=== PATIENT | male | born 1940 | race Caucasian/White ===

== ENCOUNTER → 2017-12-24 | Outpatient (REF) | payer MEDICAID ==
[2017-12-24 14:03] LABS: BASO # 0.1 10^3/uL (0.0-0.2); BASO % 0.7 % (0.0-1.0); EOS # 0.3 10^3/uL (0.0-0.50); EOS % 3.3 % (0.0-3.0); HEMOGLOBIN 10.9 g/dl (13.5-17.5); IMMATURE GRANULOCYTE % 1.1 % (0-3.0); LYMPH # 1.2 10^3/uL (1.5-4.5); MEAN CORPUSCULAR HEMOGLOBIN 26.5 pg (27.0-33.0); MEAN CORPUSCULAR HGB CONC 31.1 g/dl (32.0-36.5); MONO # 0.9 10^3/uL (0.0-0.8); MONO % 10.6 % (0.0-5.0); NEUTROPHILS # 5.9 10^3/uL (1.8-7.7); NEUTROPHILS % 70.3 % (36.0-66.0); PLATELET COUNT, AUTOMATED 286 10^3/uL (150-450); RED BLOOD COUNT 4.12 10^6/uL (4.30-6.10); RED CELL DISTRIBUTION WIDTH 14.7 % (11.5-14.5); WHITE BLOOD COUNT 8.4 10^3/uL (4.0-10.0)
[2017-12-24 14:26] LABS: ANION GAP 5 MEQ/L (8-16); BLOOD UREA NITROGEN 16 MG/DL (7-18); CALCIUM LEVEL 8.5 MG/DL (8.8-10.2); CARBON DIOXIDE LEVEL 32 MEQ/L (21-32); CHLORIDE LEVEL 94 MEQ/L (98-107); CREATININE FOR GFR 0.76 MG/DL (0.70-1.30); FERRITIN 10 NG/ML (26-388); GLOMERULAR FILTRATION RATE > 60.0 (>42); GLUCOSE, FASTING 72 MG/DL (70-100); IRON (FE) 31 UG/DL (65-175); PERCENT SATURATION 7.1 % (19.7-50.0); POTASSIUM SERUM 5.1 MEQ/L (3.5-5.1); SODIUM LEVEL 131 MEQ/L (136-145); TOTAL IRON BINDING CAPACITY 438 UG/DL (250-450)
== END ==
DX: D64.9 Anemia, unspecified (principal); I10 Essential (primary) hypertension
CPT/HCPCS: 83550

== ENCOUNTER → 2018-01-07 | Outpatient (REF) | payer MEDICARE, MEDICAID ==
[2018-01-07 10:27] LABS: ALBUMIN 3.2 GM/DL (3.2-5.2); ALT/SGPT 12 U/L (12-78); BILIRUBIN,TOTAL 0.4 MG/DL (0.2-1.0); BLOOD UREA NITROGEN 15 MG/DL (7-18); CARBON DIOXIDE LEVEL 33 MEQ/L (21-32); CHLORIDE LEVEL 94 MEQ/L (98-107); CREATININE FOR GFR 0.74 MG/DL (0.70-1.30); GLOMERULAR FILTRATION RATE > 60.0 (>42); GLUCOSE, FASTING 93 MG/DL (70-100); POTASSIUM SERUM 4.6 MEQ/L (3.5-5.1); SODIUM LEVEL 132 MEQ/L (136-145); TOTAL PROTEIN 7.2 GM/DL (6.4-8.2)
== END ==
PROVIDERS: ATTEND Internal Medicine Cardiovascular Disease
DX: R60.9 Edema, unspecified (principal)

== ENCOUNTER → 2018-03-18 | Outpatient (REF) | payer MEDICARE, MEDICAID ==
[~2018-03-18] MED LIST: ASCO500T PO; B-12100T2 PO; B-121TAB3 PO; BENZ2TAB5 PO; DOXY100T PO; FAMO40TA3 PO; FERR325T3 PO; FLUP10TA PO; FOLI400T PO; LEVO100T5 PO; LISI-538 PO; POTA10CA32 PO; PRAV40TA2 PO; SODI1TAB12 PO; TORS10TA3 PO; TORS20TA2 PO
[2018-03-18 10:42] LABS: ALBUMIN 3.1 GM/DL (3.2-5.2); BLOOD UREA NITROGEN 13 MG/DL (7-18); CARBON DIOXIDE LEVEL 29 MEQ/L (21-32); CHLORIDE LEVEL 92 MEQ/L (98-107); CREATININE FOR GFR 0.73 MG/DL (0.70-1.30); GLOMERULAR FILTRATION RATE > 60.0 (>42); GLUCOSE, FASTING 105 MG/DL (70-100); PHOSPHORUS LEVEL 3.8 MG/DL (2.5-4.9); POTASSIUM SERUM 4.1 MEQ/L (3.5-5.1); SODIUM LEVEL 131 MEQ/L (136-145)
== END ==
PROVIDERS: ATTEND Internal Medicine Cardiovascular Disease
DX: I10 Essential (primary) hypertension (principal)

== ENCOUNTER 2018-05-21 10:24 | Inpatient (IN) | payer MEDICARE, MEDICAID ==
[~2018-05-21] VITALS: Ht 175.3 cm; Wt 88.6 kg
[2018-05-21 11:25] LABS: BASO # 0.1 10^3/uL (0.0-0.2); BASO % 0.5 % (0.0-1.0); EOS # 0.3 10^3/uL (0.0-0.50); EOS % 3.3 % (0.0-3.0); HEMATOCRIT 33.2 % (42.0-52.0); HEMOGLOBIN 10.6 g/dl (13.5-17.5); LYMPH % 10.2 % (24.0-44.0); MEAN CORPUSCULAR HEMOGLOBIN 27.1 pg (27.0-33.0); MEAN CORPUSCULAR HGB CONC 31.9 g/dl (32.0-36.5); MEAN CORPUSCULAR VOLUME 84.9 fl (80.0-96.0); MONO # 1.3 10^3/uL (0.0-0.8); MONO % 12.8 % (0.0-5.0); NEUTROPHILS % 71.9 % (36.0-66.0); PLATELET COUNT, AUTOMATED 312 10^3/uL (150-450); RED BLOOD COUNT 3.91 10^6/uL (4.30-6.10); WHITE BLOOD COUNT 9.8 10^3/uL (4.0-10.0)
--- NOTE | 2018-05-21 11:41 | REP ---
PA and lateral chest: There are no comparisons. There is pleural thickening along the left lateral chest wall. There is stranding extending from the pleural thickening and to the left lung. These findings could be acute, chronic or combination. The right lung is clear. Cardiac size is mildly enlarged. The joan, mediastinum, skeletal structures are unremarkable. Impression: Pleural thickening and linear stranding in the left hemithorax as described. Electronically Signed by Joe Siu MD 05/21/2018 11:33 A
[2018-05-21] MEDS ORDERED: BENZ2TAB5 PO (11:44)
[2018-05-21] MEDS ORDERED: POTA10CA32 PO (11:44)
[2018-05-21] MEDS ORDERED: B-12100T2 PO (11:44)
[2018-05-21] MEDS ORDERED: LEVO100T5 PO (11:44)
[2018-05-21] MEDS ORDERED: FAMO40TA3 PO (11:44)
[2018-05-21] MEDS ORDERED: LISI-538 PO (11:44)
[2018-05-21] MEDS ORDERED: TORS10TA3 PO (11:44)
[2018-05-21] MEDS ORDERED: PRAV40TA2 PO (11:44)
[2018-05-21] MEDS ORDERED: FERR325T3 PO (11:44)
[2018-05-21 12:18] LABS: ERYTHROCYTE SEDIMENTATION RATE 80 mm/hr (0-20)
[2018-05-21 12:19] LABS: ALBUMIN 2.8 GM/DL (3.2-5.2); ALT/SGPT 10 U/L (12-78); BILIRUBIN,DIRECT < 0.1 MG/DL (0.0-0.2); BILIRUBIN,TOTAL 0.3 MG/DL (0.2-1.0); BLOOD UREA NITROGEN 12 MG/DL (7-18); C REACTIVE PROTEIN QUANTITATIV 2.77 MG/DL (0.00-0.30); CALCIUM LEVEL 8.4 MG/DL (8.8-10.2); CARBON DIOXIDE LEVEL 31 MEQ/L (21-32); CHLORIDE LEVEL 93 MEQ/L (98-107); CPK CREATINE PHOSPHOKINASE 52 U/L (39-308); CREATININE FOR GFR 0.73 MG/DL (0.70-1.30); GLOMERULAR FILTRATION RATE > 60.0 (>42); GLUCOSE, FASTING 101 MG/DL (70-100); MB/CK RELATIVE INDEX 3.08 (< OR =4); NT-PRO BNP 30 PG/ML (<450); POTASSIUM SERUM 3.9 MEQ/L (3.5-5.1); SODIUM LEVEL 132 MEQ/L (136-145); TOTAL PROTEIN 7.3 GM/DL (6.4-8.2); TROPONIN I < 0.02 NG/ML (< 0.10)
--- NOTE | 2018-05-21 12:38 | REP ---
Bilateral lower extremity Duplex Doppler venous ultrasound: Real time compression and duplex Doppler interrogation of the bilateral lower extremity deep venous system is performed. Bilaterally, the common femoral, superficial femoral and popliteal veins are fully compressible with transducer pressure and demonstrate normal spontaneous and phasic flow, without evidence of deep venous thrombosis. Impression: No evidence of deep venous thrombosis of the bilateral lower extremity femoral popliteal venous system. Note is made of prominent lymph nodes in the right inguinal region, measuring 4.1 x 1.1 x 1.5 cm and 4.2 x 1.0 x 2.3 cm. A left inguinal node measures 5.0 x 1.4 x 3.5 cm. Electronically Signed by Joe Bhatti MD 05/21/2018 12:30 P
[2018-05-21 13:33] LABS: APPEARANCE, URINE CLEAR (CLEAR); BACTERIA, URINE AUTO NEGATIVE (NEGATIVE); BILIRUBIN, URINE AUTO NEGATIVE (NEGATIVE); BLOOD, URINE BLOOD NEGATIVE (NEGATIVE); COLOR, URINE STRAW (YELLOW); GLUCOSE, URINE (UA) AUTO NEGATIVE (NEGATIVE); KETONE, URINE AUTO NEGATIVE (NEGATIVE); LEUKOCYTE ESTERASE, URINE AUTO NEGATIVE (NEGATIVE); NITRITE, URINE AUTO NEGATIVE (NEGATIVE); PROTEIN, URINE AUTO NEGATIVE (NEGATIVE); RBC, URINE AUTO 1 /HPF (0-3); SPECIFIC GRAVITY URINE AUTO 1.005 (1.002-1.035); SQUAMOUS EPITHELIAL CELL UR AU 0 /HPF (0-6); UROBILINOGEN, URINE AUTO 0.2 mg/dL (0.0-2.0); WBC, URINE AUTO 0 /HPF (0-3)
--- NOTE | 2018-05-21 13:43 | ECGEPIP ---
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
[2018-05-21] MEDS ORDERED: CEFTAROLINE FOSAMIL 600 MG in D5W MINI-BAG PLUS 50 ML IV ONE (14:30)
[2018-05-21] MEDS ORDERED: B-121TAB3 PO (14:53)
[2018-05-21] MEDS ORDERED: FLUP10TA PO (14:53)
[2018-05-21] MEDS ORDERED: FOLI400T PO (14:53)
[2018-05-21] MEDS ORDERED: ASCO500T PO (14:53)
[2018-05-21] MEDS ORDERED: TORS20TA2 PO (14:53)
[2018-05-21] MEDS ORDERED: ACETAMINOPHEN 500 MG TAB PO PRN (15:00)
--- NOTE | 2018-05-21 15:20 | HPE ---
DATE OF ADMISSION: 05/21/2018 PRIMARY CARE PROVIDER: Darlin Mcneill in [place]. ATTENDING PHYSICIAN: The hospitalist group. GEOPHYSICAL LABORATORY SUPERVISOR: Dr. Frias CHIEF COMPLAINT: Bilateral lower extremity cellulitis. HISTORY: David Jade was sent over by [facility] with bilateral lower extremity cellulitis. He does not give much history due to psychiatric illness but, apparently, he has been wearing compression stockings. When someone took them off, they noticed erythema of the lower extremities. He apparently has been felt to be running a fever at times. He has a past medical history significant for hypothyroidism, hyperlipidemia, schizophrenia, hypertensive heart disease. He has an unspecified cardiac murmur that sounds like aortic stenosis and mitral regurgitation clinically. REVIEW OF SYSTEMS: Denies chest pain, shortness of breath, rectal bleeding, urinary bleeding, palpitations. SOCIAL HISTORY: He is . He is a resident of [facility]. ALLERGIES: None known. MEDICATIONS: Have not yet been reconciled. Addendum will be dictated. PHYSICAL EXAM: VITAL SIGNS: Per flow sheet. He is lying in bed. He vague answering questions. He has a tremor. HEENT: Shows poor dentition. LUNGS: Decreased breath sounds, but clear. HEART: Regular rate and rhythm with a 2/6 systolic ejection murmur right upper sternal border, 2/6 holosystolic murmur at the apex. ABDOMEN: Soft. Nontender. No masses. He has venous stasis dermatitis. With erythema of the lower extremities from ankles to mid king that is warm and reddened. Per spouse, is a new finding for him. He moves all extremities equally. LABS: White count 9.8, hemoglobin 10.6 (baseline hemoglobin 10.8), platelets 312. Sodium 132 (baseline sodium around 131), potassium 3.9, BUN 12, creatinine 0.7, glucose 101, CRP 2.7. Ultrasounds of the legs show no deep venous thromboses (DVTs). Chest x-ray showed no active disease. IMPRESSION: Cellulitis lower extremities. PLAN: 1. Being admitted to medical bed on the hospitalist service. Started on ceftaroline 600 mg every 12 hours. Repeat C-reactive protein in a few days. He does not look particularly ill and probably could go home in a few days with this. 2. Schizophrenia. Continue his current regimen. 3. Hyperlipidemia. Continue his pravastatin 40 mg daily 4. Hypertensive heart disease. Lisinopril 20 mg daily and torsemide 10 mg daily. Will supplement potassium. 5. Hypothyroidism. Continue current dose of levothyroxine. Check some thyroid functions. 6. B12 deficiency. Continue his B12 supplement.
[2018-05-21] MEDS: PRAVASTATIN 20 MG TAB PO SCH (21:08)
[2018-05-21] MEDS: LISINOPRIL 20 MG TAB PO SCH (21:11)
[2018-05-21] MEDS: BENZTROPINE 2 MG TAB PO SCH (21:11)
[2018-05-21] MEDS: TORSEMIDE 10 MG TABLET PO SCH (21:11)
[2018-05-21 22:00] VITALS: BP 135/67
[2018-05-22 02:00] VITALS: BP 125/80
[2018-05-22] MEDS ORDERED: CEFTAROLINE FOSAMIL 600 MG in D5W MINI-BAG PLUS 50 ML IV SCH (02:00)
[2018-05-22] MEDS: CEFTAROLINE FOSAMIL 600 MG in D5W MINI-BAG PLUS 50 ML IV SCH ×2 (02:23→13:23)
[2018-05-22] MEDS: LEVOTHYROXINE 100MCG TABLET (0.1MG) PO SCH (05:41)
[2018-05-22 06:00] VITALS: BP 149/77
[2018-05-22 06:22] LABS: HEMATOCRIT 31.8 % (42.0-52.0); HEMOGLOBIN 10.6 g/dl (13.5-17.5); MEAN CORPUSCULAR HEMOGLOBIN 27.2 pg (27.0-33.0); MEAN CORPUSCULAR HGB CONC 33.3 g/dl (32.0-36.5); MEAN CORPUSCULAR VOLUME 81.5 fl (80.0-96.0); PLATELET COUNT, AUTOMATED 359 10^3/uL (150-450); WHITE BLOOD COUNT 14.1 10^3/uL (4.0-10.0)
[2018-05-22 06:46] LABS: BLOOD UREA NITROGEN 11 MG/DL (7-18); CALCIUM LEVEL 8.3 MG/DL (8.8-10.2); CARBON DIOXIDE LEVEL 29 MEQ/L (21-32); CHLORIDE LEVEL 86 MEQ/L (98-107); CREATININE FOR GFR 0.76 MG/DL (0.70-1.30); GLOMERULAR FILTRATION RATE > 60.0 (>42); GLUCOSE, FASTING 98 MG/DL (70-100); POTASSIUM SERUM 4.1 MEQ/L (3.5-5.1); SODIUM LEVEL 124 MEQ/L (136-145)
[2018-05-22] MEDS: FOLIC ACID 1 MG TAB PO SCH (08:36)
[2018-05-22] MEDS: CYANOCOBALAMIN 500 MCG TAB PO SCH (08:36)
[2018-05-22] MEDS: FAMOTIDINE 20 MG TAB PO SCH (08:36)
[2018-05-22] MEDS: BENZTROPINE 2 MG TAB PO SCH ×3 (08:36→20:40)
[2018-05-22] MEDS: POTASSIUM CHLORIDE 10 MEQ SR TABLET PO SCH (08:37)
[2018-05-22] MEDS: FERROUS SULFATE 325MG TAB PO SCH (08:37)
[2018-05-22] MEDS: ASCORBIC ACID 500 MG TAB PO SCH (08:37)
[2018-05-22] MEDS: TORSEMIDE 20 MG TAB PO SCH ×2 (08:37→08:40)
[2018-05-22] MEDS: ENOXAPARIN 40 MG/0.4 ML SYRINGE (J1650) SC SCH (08:41)
[2018-05-22 14:00] VITALS: BP 140/68
[2018-05-22] MEDS: NS 1,000 ML IV SCH (16:30)
--- NOTE | 2018-05-22 16:51 | IPNPDOC ---
Subjective Date Seen The patient was seen on 05/22/18. Subjective Chief Complaint/HPI Subjective: Patient sent from [facility] for bilateral lower extremity cellulitis. Also found to have resting hyponatremia. Patient appeared comfortable this morning. He denies any complaints. Sodium noted to drop from 132 to 124, no noticeable changes in mental status noted by nursing staff overnight and this morning. Objective Physical Examination Other physical findings General: weak, frail. Eyes: Normal sclera, EOMI, JON HENT: Atraumatic, neck supple, moist mucous membranes Cardiovascular: Normal rate. murmurs+. Pulmonary: Clear to auscultation b/l, no wheezing GI: Soft, nontender, nondistended Skin: Warm and dry Neuro: CN grossly intact. No focal deficits. generalized weakness. Assessment /Plan Assessment ASSESSMENT AND PLAN: 1. LE Cellulitis - c/w Abx. No significant erythema noted. 2. Schizophrenia - Holding antipsychotic for today given worsening hyponatremia. - Resume tomorrow if Na normalizes. 3. HLD - C/w home pravastatin 4. Hyponatremia - Patient on antipsychotic as well as likely hypovolemic 2/2 poor PO intake. - Na 124 asymptomatic. Will fluid restrict and give NaCl IVF support. - f/u serum and urine osmo, Na, Cl. - repeat BMP now to assess for trend. 5. Hypothyroidism - c/w home dose synthroid. Patient is high risk due to moderate hyponatremia and low extremity cellulitis Estimated length of stay 4 days. Plan/VTE VTE Prophylaxis Ordered?: Yes VS, I&O, 24H, Fishbone Vital Signs/I&O Vital Signs Date Time Temp Pulse Resp B/P (MAP) Pulse Ox O2 Delivery O2 Flow Rate FiO2 05/22/18 06:00 97.2 97 20 149/77 (101) 92 05/21/18 18:42 Room Air I&O- Last 24 Hours up to 6 AM 05/22/18 06:00 Intake Total 1320 ml Balance 1320 ml Laboratory Data 24H LABS Laboratory Tests 2 05/22/18 05:43: Nucleated Red Blood Cells % (auto) 0.0, Anion Gap 9, Glomerular Filtration Rate > 60.0, Blood Urea Nitrogen 11, Creatinine 0.76, Sodium Level 124#L, Potassium Level 4.1, Chloride Level 86L, Carbon Dioxide Level 29, Calcium Level 8.3L CBC/BMP Laboratory Tests 4/11/19 05:43 Red Blood Count 3.90 L, Mean Corpuscular Volume 81.5, Mean Corpuscular Hemoglobin 27.2, Mean Corpuscular Hemoglobin Concent 33.3, Red Cell Distribution Width 13.4, Calcium Level 8.3 L Microbiology Microbiology 05/21/18 Blood Culture - Preliminary, Resulted No growth after 24 hours . All specim... 05/21/18 Blood Culture - Preliminary, Resulted No growth after 24 hours . All specim... 05/21/18 Urine Culture - Final, Complete AMANDA LANGLEY MD May 22, 2018 16:51
[2018-05-22] MEDS: TORSEMIDE 10 MG TABLET PO SCH (17:00)
[2018-05-22 17:30] LABS: BLOOD UREA NITROGEN 11 MG/DL (7-18); CARBON DIOXIDE LEVEL 31 MEQ/L (21-32); CHLORIDE LEVEL 87 MEQ/L (98-107); CREATININE FOR GFR 0.68 MG/DL (0.70-1.30); GLOMERULAR FILTRATION RATE > 60.0 (>42); GLUCOSE, FASTING 121 MG/DL (70-100); POTASSIUM SERUM 4.3 MEQ/L (3.5-5.1); SODIUM LEVEL 123 MEQ/L (136-145)
[2018-05-22 17:35] LABS: OSMOLALITY SERUM 260 MOSM/KG (280-301)
[2018-05-22] MEDS: LISINOPRIL 20 MG TAB PO SCH (20:55)
[2018-05-22] MEDS: PRAVASTATIN 20 MG TAB PO SCH (20:55)
[2018-05-22 22:00] VITALS: BP 136/93
[2018-05-23 02:00] VITALS: BP 133/75
[2018-05-23] MEDS: CEFTAROLINE FOSAMIL 600 MG in D5W MINI-BAG PLUS 50 ML IV SCH ×2 (03:04→14:42)
[2018-05-23] MEDS: NS 1,000 ML IV SCH ×2 (03:04→12:08)
[2018-05-23 06:00] VITALS: BP 147/68
[2018-05-23] MEDS: LEVOTHYROXINE 100MCG TABLET (0.1MG) PO SCH (06:04)
[2018-05-23 06:24] LABS: HEMATOCRIT 31.1 % (42.0-52.0); HEMOGLOBIN 10.3 g/dl (13.5-17.5); MEAN CORPUSCULAR HGB CONC 33.1 g/dl (32.0-36.5); MEAN CORPUSCULAR VOLUME 81.4 fl (80.0-96.0); PLATELET COUNT, AUTOMATED 306 10^3/uL (150-450); RED BLOOD COUNT 3.82 10^6/uL (4.30-6.10); WHITE BLOOD COUNT 8.2 10^3/uL (4.0-10.0)
[2018-05-23 06:45] LABS: BLOOD UREA NITROGEN 11 MG/DL (7-18); CALCIUM LEVEL 8.4 MG/DL (8.8-10.2); CARBON DIOXIDE LEVEL 30 MEQ/L (21-32); CHLORIDE LEVEL 94 MEQ/L (98-107); CREATININE FOR GFR 0.62 MG/DL (0.70-1.30); GLOMERULAR FILTRATION RATE > 60.0 (>42); GLUCOSE, FASTING 107 MG/DL (70-100); POTASSIUM SERUM 4.1 MEQ/L (3.5-5.1); SODIUM LEVEL 129 MEQ/L (136-145)
[2018-05-23 08:00] VITALS: BP 138/56
[2018-05-23] MEDS: EUCERIN 120GM CREAM TOP SCH ×2 (09:00→21:32)
[2018-05-23] MEDS: ENOXAPARIN 40 MG/0.4 ML SYRINGE (J1650) SC SCH (09:00)
[2018-05-23] MEDS: BENZTROPINE 2 MG TAB PO SCH ×2 (10:07→21:31)
[2018-05-23] MEDS: ASCORBIC ACID 500 MG TAB PO SCH (10:08)
[2018-05-23] MEDS: POTASSIUM CHLORIDE 10 MEQ SR TABLET PO SCH (10:08)
[2018-05-23] MEDS: FOLIC ACID 1 MG TAB PO SCH (10:08)
[2018-05-23] MEDS: FAMOTIDINE 20 MG TAB PO SCH (10:08)
[2018-05-23] MEDS: CYANOCOBALAMIN 500 MCG TAB PO SCH (10:08)
[2018-05-23] MEDS: FERROUS SULFATE 325MG TAB PO SCH (10:09)
[2018-05-23 12:01] VITALS: BP 131/64
--- NOTE | 2018-05-23 15:48 | IPNPDOC ---
Date Seen The patient was seen on 05/23/18. Progress Note SUBJECTIVE: Patient reports to me today that his feet are feeling better he tells me he has no pain and no symptoms whatsoever today that he is feeling close to his normal he denies chest pressure fevers chills nausea vomiting diarrhea OBJECTIVE PHYSICAL EXAMINATION: VITAL SIGNS: Please see below. GENERAL: Disheveled elderly man lying in bed he does not appear to be in any acute distress HEENT: Poor dentition moist mucous membranes elevation and CVP CARDIOVASCULAR: S1-S2 regular. He is not tachycardic at the time of my exam. As 6 systolic ejection murmur RESPIRATORY: Clear to auscultation bilaterally. ABDOMINAL: Bowel sounds are present abdomen soft and nontender EXTREMITIES: Significant skin flaking poor nail care superficial ulcer to the dorsum of the foot with foam dressing applied poor hygiene 1+ edema bilaterally LABORATORY DATA, IMAGING STUDIES, MICROBIOLOGY: Please see below. DVT prophylaxis ordered?: Lovenox ASSESSMENT AND PLAN: This is a 78-year-old man with bilateral lower extremity edema. PROBLEMS: 1. Bilateral lower extremity edema: No previous echocardiogram is on chronic diuretic therapy I will check an echo. My suspicion for bilateral lower extrem ity cellulitis is simultaneously be occurring in both legs in his lower, today is day 2 of ceftaroline suspect that tomorrow he can be transitioned to by mouth doxycycline to complete a short course for cellulitis. He is currently receiving normal saline at 100 mL an hour peripherally there appears to be some volume retention however respiratory amin is clear with no elevation and CVP for now we'll simply continue to monitor as his sodium is improving. I suspected benefit from outpatient podiatry follow-up he normally resides in assisted living [facility]. He is on diuretic is currently on hold. 2. Schizophrenia: I will resume his Cogentin as well as fluphenazine. Patient appears to be at his baseline cognitive status 3. Hyponatremia: Is unclear to me if his hypovolemic versus hypervolemic I do feels been appreciated some edema bilaterally however his sodium does appear to be improving with IV fluids for now we will continue monitor and recheck a BMP this afternoon at this point in time he is received IV fluids he's been fluid restricted he was previously receiving a diuretic is very difficult to ascertain the nature of his hyponatremia he does appear to be improving at this time. 4. Hypothyroidism: Unknown etiology for hyponatremia we'll check a TSH 5. Anemia: An elderly male I will send iron studies and check an occult stool for blood. He has a history of iron deficiency and is on supplementation for this 6. Dyslipidemia: Continue with statin 7. Hypertension: Continue with lisinopril DISPOSITION: Pending echo PT and clinical improvement. VS, I&O, 24H, Fishbone Vital Signs/I&O Vital Signs Date Time Temp Pulse Resp B/P (MAP) Pulse Ox O2 Delivery O2 Flow Rate FiO2 05/23/18 12:01 98.7 101 18 131/64 (86) 96 05/21/18 18:42 Room Air I&O- Last 24 Hours up to 6 AM 05/23/18 05:59 Intake Total 2650 ml Balance 2650 ml Laboratory Data 24H LABS Laboratory Tests 2 05/22/18 16:49: Anion Gap 5L, Glomerular Filtration Rate > 60.0, Osmolality 260L, Blood Urea Nitrogen 11, Creatinine 0.68L, Sodium Level 123L, Potassium Level 4.3, Chloride Level 87L, Carbon Dioxide Level 31, Calcium Level 8.0L 05/23/18 05:34: Anion Gap 5L, Glomerular Filtration Rate > 60.0, Blood Urea Nitrogen 11, Creatinine 0.62L, Sodium Level 129L, Potassium Level 4.1, Chloride Level 94L, Carbon Dioxide Level 30, Calcium Level 8.4L, Nucleated Red Blood Cells % (auto) 0.0 CBC/BMP Laboratory Tests 05/22/18 16:49 Calcium Level 8.0 L 05/23/18 05:34 Calcium Level 8.4 L, Red Blood Count 3.82 L, Mean Corpuscular Volume 81.4, Mean Corpuscular Hemoglobin 27.0, Mean Corpuscular Hemoglobin Concent 33.1, Red Cell Distribution Width 13.4 Microbiology Microbiology 05/21/18 Blood Culture - Preliminary, Resulted No Growth after 48 hours. All Specime... 05/21/18 Blood Culture - Preliminary, Resulted No Growth after 48 hours. All Specime... 05/21/18 Urine Culture - Final, Complete DON HARE MD May 23, 2018 15:48
[2018-05-23] MEDS: TORSEMIDE 10 MG TABLET PO SCH (15:56)
[2018-05-23 17:00] LABS: BLOOD UREA NITROGEN 12 MG/DL (7-18); CALCIUM LEVEL 7.7 MG/DL (8.8-10.2); CARBON DIOXIDE LEVEL 28 MEQ/L (21-32); CHLORIDE LEVEL 98 MEQ/L (98-107); CREATININE FOR GFR 0.58 MG/DL (0.70-1.30); GLOMERULAR FILTRATION RATE > 60.0 (>42); GLUCOSE, FASTING 98 MG/DL (70-100); POTASSIUM SERUM 4.6 MEQ/L (3.5-5.1); SODIUM LEVEL 133 MEQ/L (136-145)
[2018-05-23 17:05] LABS: THYROID STIMULATING HORMONE 4.69 uIU/ML (0.358-3.740)
[2018-05-23 19:05] LABS: PERCENT SATURATION 9.1 % (19.7-50.0)
[2018-05-23] MEDS: LISINOPRIL 20 MG TAB PO SCH (21:31)
[2018-05-23] MEDS: PRAVASTATIN 20 MG TAB PO SCH (21:31)
[2018-05-23 22:00] VITALS: BP 144/74
[2018-05-24 02:00] VITALS: BP 115/56
[2018-05-24] MEDS: CEFTAROLINE FOSAMIL 600 MG in D5W MINI-BAG PLUS 50 ML IV SCH ×2 (02:49→13:45)
[2018-05-24 06:00] VITALS: BP 121/83
[2018-05-24] MEDS: LEVOTHYROXINE 100MCG TABLET (0.1MG) PO SCH (06:00)
[2018-05-24 07:20] LABS: HEMOGLOBIN 10.2 g/dl (13.5-17.5); MEAN CORPUSCULAR HGB CONC 32.9 g/dl (32.0-36.5); PLATELET COUNT, AUTOMATED 334 10^3/uL (150-450); RED BLOOD COUNT 3.78 10^6/uL (4.30-6.10); WHITE BLOOD COUNT 10.6 10^3/uL (4.0-10.0)
[2018-05-24 07:39] LABS: BLOOD UREA NITROGEN 7 MG/DL (7-18); C REACTIVE PROTEIN QUANTITATIV 2.91 MG/DL (0.00-0.30); CALCIUM LEVEL 8.2 MG/DL (8.8-10.2); CARBON DIOXIDE LEVEL 28 MEQ/L (21-32); CHLORIDE LEVEL 97 MEQ/L (98-107); GLOMERULAR FILTRATION RATE > 60.0 (>42); GLUCOSE, FASTING 100 MG/DL (70-100); POTASSIUM SERUM 4.1 MEQ/L (3.5-5.1); SODIUM LEVEL 132 MEQ/L (136-145)
[2018-05-24] MEDS: TORSEMIDE 20 MG TAB PO SCH ×2 (09:43→09:45)
[2018-05-24] MEDS: FERROUS SULFATE 325MG TAB PO SCH (09:43)
[2018-05-24] MEDS: POTASSIUM CHLORIDE 10 MEQ SR TABLET PO SCH (09:43)
[2018-05-24] MEDS: ASCORBIC ACID 500 MG TAB PO SCH (09:43)
[2018-05-24] MEDS: CYANOCOBALAMIN 500 MCG TAB PO SCH (09:44)
[2018-05-24] MEDS: BENZTROPINE 2 MG TAB PO SCH ×2 (09:44→21:58)
[2018-05-24] MEDS: ENOXAPARIN 40 MG/0.4 ML SYRINGE (J1650) SC SCH (09:45)
[2018-05-24] MEDS: EUCERIN 120GM CREAM TOP SCH ×2 (09:45→21:59)
[2018-05-24] MEDS: FAMOTIDINE 20 MG TAB PO SCH (09:45)
[2018-05-24 10:00] VITALS: BP 134/63
[2018-05-24] MEDS: FOLIC ACID 1 MG TAB PO SCH (10:08)
[2018-05-24 14:00] VITALS: BP 128/72
--- NOTE | 2018-05-24 14:28 | IPNPDOC ---
Date Seen The patient was seen on 05/24/18. Progress Note SUBJECTIVE: Patient reports to me today that he is feeling better and back to his normal. He tells me he has no pain and no symptoms whatsoever today he denies chest pressure fevers chills nausea vomiting diarrhea OBJECTIVE PHYSICAL EXAMINATION: VITAL SIGNS: Please see below. GENERAL: Disheveled elderly sitting on the edge of his bed he does not appear to be in any acute distress awake alert and conversant with appropriate responses HEENT: Poor dentition moist mucous membranes elevation and CVP disheveled CARDIOVASCULAR: S1-S2 regular. He is not tachycardic at the time of my exam. As 2/6 systolic ejection murmur RESPIRATORY: Clear to auscultation bilaterally. ABDOMINAL: Bowel sounds are present abdomen soft and nontender EXTREMITIES: Significant skin flaking poor nail care superficial ulcer to the dorsum of the foot with foam dressing applied poor hygiene brawny but nonpitting edema LABORATORY DATA, IMAGING STUDIES, MICROBIOLOGY: Please see below. DVT prophylaxis ordered?: Lovenox ASSESSMENT AND PLAN: This is a 78-year-old man with bilateral lower extremity edema and erythema. PROBLEMS: 1. Bilateral lower extremity edema and erythema: No previous echocardiogram patient is on chronic diuretic therapy I will check an echo. My suspicion for bilateral lower extremity cellulitis is simultaneously be occurring in both legs in his lower, today is day 3 of ceftaroline I will de-escalate to by mouth doxycycline to complete a course. I suspected benefit from outpatient podiatry follow-up he normally resides in assisted living [facility]. His diuretic is currently on hold. 2. Schizophrenia: Continue with Cogentin as well as fluphenazine. Patient appears to be at his baseline cognitive status 3. Hyponatremia: Is unclear to me if his hypovolemic versus hypervolemic it did resolve with IV fluids so I suspect it was hypovolemic and I'll simply continue to monitor. 4. Hypothyroidism: Mild elevation in TSH consider outpatient rechecking 5. Anemia: Likely iron deficiency continue outpatient follow up through his PCP no evidence of any active bleeding 6. Dyslipidemia: Continue with statin 7. Hypertension: Continue with lisinopril DISPOSITION: Pending echo PT and clinical improvement, likely back to [facility] assisted living when able. VS, I&O, 24H, Fishbone Vital Signs/I&O Vital Signs Date Time Temp Pulse Resp B/P (MAP) Pulse Ox O2 Delivery O2 Flow Rate FiO2 05/24/18 10:00 98.0 102 18 134/63 (86) 95 05/21/18 18:42 Room Air I&O- Last 24 Hours up to 6 AM 05/24/18 06:00 Intake Total 1980 ml Balance 1980 ml Laboratory Data 24H LABS Laboratory Tests 2 05/23/18 15:54: Anion Gap 7L, Glomerular Filtration Rate > 60.0, Blood Urea Nitrogen 12, Creatinine 0.58L, Sodium Level 133L, Potassium Level 4.6, Chloride Level 98, Carbon Dioxide Level 28, Calcium Level 7.7L 05/23/18 15:56: Reticulocyte # (auto) 66.0, Differential Slide Review Report, Peripheral Blood Smear Path Consult PERIPHERAL SMEAR, Percent Reticulocyte Count 1.8H, Reticulocyte Hemoglobin Equivalent 31.8, Iron Level 25L, Total Iron Binding Capacity 276, Transferrin % Saturation 9.1L, Ferritin 44, Thyroid Stimulating Hormone (TSH) 4.690H 05/24/18 06:13: Anion Gap 7L, Glomerular Filtration Rate > 60.0, Blood Urea Nitrogen 7, Creatinine 0.60L, Sodium Level 132L, Potassium Level 4.1, Chloride Level 97L, Carbon Dioxide Level 28, Calcium Level 8.2L, Nucleated Red Blood Cells % (auto) 0.0, C-Reactive Protein, Quantitative 2.91H CBC/BMP Laboratory Tests 05/23/18 15:54 Calcium Level 7.7 L 05/24/18 06:13 Calcium Level 8.2 L, Red Blood Count 3.78 L, Mean Corpuscular Volume 82.0, Mean Corpuscular Hemoglobin 27.0, Mean Corpuscular Hemoglobin Concent 32.9, Red Cell Distribution Width 13.5 Microbiology Microbiology 05/21/18 Blood Culture - Preliminary, Resulted No Growth after 72 hours. All specime... 05/21/18 Blood Culture - Preliminary, Resulted No Growth after 72 hours. All specime... 05/23/18 Stool Occult Blood (YOHANA) - Final, Complete 05/21/18 Urine Culture - Final, Complete DON AHRE MD May 24, 2018 14:28
[2018-05-24] MEDS: TORSEMIDE 10 MG TABLET PO SCH (18:18)
[2018-05-24] MEDS: PRAVASTATIN 20 MG TAB PO SCH (21:58)
[2018-05-24] MEDS: DOXYCYCLINE HYCLATE 100 MG TAB PO SCH (21:58)
[2018-05-24] MEDS: LISINOPRIL 20 MG TAB PO SCH (21:59)
[2018-05-24 22:00] VITALS: BP 130/62
[2018-05-25 02:00] VITALS: BP 137/64
[2018-05-25 06:00] VITALS: BP 131/68
[2018-05-25] MEDS: LEVOTHYROXINE 100MCG TABLET (0.1MG) PO SCH (06:15)
[2018-05-25 06:26] LABS: HEMATOCRIT 29.7 % (42.0-52.0); HEMOGLOBIN 9.7 g/dl (13.5-17.5); MEAN CORPUSCULAR HEMOGLOBIN 26.7 pg (27.0-33.0); MEAN CORPUSCULAR HGB CONC 32.7 g/dl (32.0-36.5); MEAN CORPUSCULAR VOLUME 81.8 fl (80.0-96.0); PLATELET COUNT, AUTOMATED 281 10^3/uL (150-450); RED BLOOD COUNT 3.63 10^6/uL (4.30-6.10); WHITE BLOOD COUNT 9.3 10^3/uL (4.0-10.0)
[2018-05-25 06:48] LABS: BLOOD UREA NITROGEN 12 MG/DL (7-18); CALCIUM LEVEL 7.5 MG/DL (8.8-10.2); CARBON DIOXIDE LEVEL 29 MEQ/L (21-32); CHLORIDE LEVEL 96 MEQ/L (98-107); CREATININE FOR GFR 0.67 MG/DL (0.70-1.30); GLOMERULAR FILTRATION RATE > 60.0 (>42); GLUCOSE, FASTING 99 MG/DL (70-100); POTASSIUM SERUM 3.8 MEQ/L (3.5-5.1); SODIUM LEVEL 131 MEQ/L (136-145)
--- NOTE | 2018-05-25 07:32 | ECHO ---
DATE OF STUDY: 05/24/2018 REFERRING PHYSICIAN: Dr. Rosetta Hammer INDICATION: Heart failure unspecified. HEIGHT: 175 cm. WEIGHT: 89 kg. 2-D MEASUREMENTS: Aortic annulus: 2.2 cm Aortic root: 3.4 cm Left atrium: 3.4 cm Ventricular septum: 1.00 cm Posterior wall: 0.96 cm Left ventricle diastole: 4.7 cm Inferior vena cava: 1.7 cm DOPPLER MEASUREMENTS: Trace aortic regurgitation Aortic valve velocity: 274 cm/sec Aortic valve VTI: 50.0 cm/sec Peak aortic valve gradient: 30 mmHg Mean aortic valve gradient: 17 mmHg Aortic valve area: 2.1 cm squared (continuity equation, VTI) Dimensionless index: 0.56 LVOT velocity: 145 cm/sec LVOT VTI: 27.9 cm Mitral E velocity: 77.7 cm/sec Mitral A velocity: 92.4 cm/sec Mitral deceleration time: 176 ms Mild tricuspid regurgitation Estimated right ventricular systolic pressure 31-36 mmHg assuming a right atrial pressure of 5-10 mmHg MITRAL ANNULAR TISSUE DOPPLER: E prime septal: 8.81 cm/sec E prime lateral: 6.42 cm/sec DESCRIPTION: The rhythm was mostly sinus tachycardia. This was a moderately technically difficult echocardiogram. No pericardial effusion. This was a 2-D, M-mode, color flow Doppler and pulse wave Doppler examination and included mitral annular tissue Doppler. CONCLUSIONS: 1. Normal left ventricle internal dimensions and wall thickness. Normal regional LV wall motion and wall thickening. Normal LV systolic function. LVEF 70% by visual estimate. Grade 2 LV diastolic dysfunction (impaired relaxation and filling pattern). 2. Severe focal thickening and focal calcific deposits of a 3-cuspid aortic valve. Mild reduction in aortic cusp mobility. Mild aortic stenosis. Trace aortic regurgitation. 3. Normal right ventricle size and systolic function. 4. Mild mitral annular calcification. No mitral regurgitation. 5. Suggestive of mild elevation of estimated right ventricle systolic pressure.
[2018-05-25] MEDS: FOLIC ACID 1 MG TAB PO SCH (08:43)
[2018-05-25] MEDS: TORSEMIDE 20 MG TAB PO SCH (08:43)
[2018-05-25] MEDS: ASCORBIC ACID 500 MG TAB PO SCH (08:43)
[2018-05-25] MEDS: BENZTROPINE 2 MG TAB PO SCH ×2 (08:43→21:08)
[2018-05-25] MEDS: FERROUS SULFATE 325MG TAB PO SCH (08:43)
[2018-05-25] MEDS: ENOXAPARIN 40 MG/0.4 ML SYRINGE (J1650) SC SCH (08:43)
[2018-05-25] MEDS: POTASSIUM CHLORIDE 10 MEQ SR TABLET PO SCH (08:44)
[2018-05-25] MEDS: DOXYCYCLINE HYCLATE 100 MG TAB PO SCH ×2 (08:44→21:08)
[2018-05-25] MEDS: FAMOTIDINE 20 MG TAB PO SCH (08:44)
[2018-05-25] MEDS: CYANOCOBALAMIN 500 MCG TAB PO SCH (08:45)
[2018-05-25] MEDS: EUCERIN 120GM CREAM TOP SCH ×2 (08:47→21:08)
[2018-05-25 10:00] VITALS: BP 135/65
--- NOTE | 2018-05-25 11:44 | IPNPDOC ---
Date Seen The patient was seen on 05/25/18. Progress Note SUBJECTIVE: Patient reports to me today that he is feeling well. He tells me he has no pain and no symptoms whatsoever today he denies chest pressure fevers chills nausea vomiting diarrhea. He tells me that his evening to get back TO HIS ASSISTED LIVING FACILITY. He tells me he had a bowel movement this morning OBJECTIVE PHYSICAL EXAMINATION: VITAL SIGNS: Please see below. GENERAL: Disheveled elderly sitting on the edge of his bed he does not appear to be in any acute distress HEENT: Poor dentition moist mucous membranes elevation and CVP disheveled CARDIOVASCULAR: S1-S2 regular. He is not tachycardic at the time of my exam. As 2/6 systolic ejection murmur RESPIRATORY: Clear to auscultation bilaterally. ABDOMINAL: Bowel sounds are present abdomen soft and nontender EXTREMITIES: Significant skin flaking poor nail care superficial ulcer to the dorsum of the foot with foam dressing applied poor hygiene brawny but nonpitting edema LABORATORY DATA, IMAGING STUDIES, MICROBIOLOGY: Please see below. Echocardiogram:1. Normal left ventricle internal dimensions and wall thickness. Normal regional LV wall motion and wall thickening. Normal LV systolic function. LVEF 70% by visual estimate. Grade 2 LV diastolic dysfunction (impaired relaxation and filling pattern). 2. Severe focal thickening and focal calcific deposits of a 3-cuspid aortic valve. Mild reduction in aortic cusp mobility. Mild aortic stenosis. Trace aortic regurgitation. 3. Normal right ventricle size and systolic function. 4. Mild mitral annular calcification. No mitral regurgitation. 5. Suggestive of mild elevation of estimated right ventricle systolic pressure. DVT prophylaxis ordered?: Lovenox ASSESSMENT AND PLAN: This is a 78-year-old man with bilateral lower extremity edema and erythema. PROBLEMS: 1. Bilateral lower extremity edema and erythema: He is chronically on diuretic therapy he has grade 2 diastolic dysfunction on echocardiogram he appears volume optimized at this time. My suspicion for bilateral lower extremity cellulitis to be simultaneously occurring in both legs at the same time is highly unlikely, I have D escalated him to by mouth doxycycline to complete a course for possible soft tissue skin infection. I suspected benefit from outpatient podiatry follow- up. he normally resides in assisted living [facility]. His diuretic is currently on hold. 2. Schizophrenia: Continue with Cogentin as well as fluphenazine. Patient appears to be at his baseline cognitive status 3. Hyponatremia: He does not appear to be hypervolemic on exam if anything may be hypovolemic I will hold his diuretics he previously improved with fluid resuscitation he likely require some diuretic likely not the dose he was on at that his facility 4. Hypothyroidism: Mild elevation in TSH consider outpatient rechecking 5. Anemia: Likely iron deficiency continue outpatient follow up through his PCP no evidence of any active bleeding 6. Dyslipidemia: Continue with statin 7. Hypertension: Continue with lisinopril DISPOSITION: Appropriate for discharge back to [facility] assisted living as early as tomorrow morning VS, I&O, 24H, Fishbone Vital Signs/I&O Vital Signs Date Time Temp Pulse Resp B/P (MAP) Pulse Ox O2 Delivery O2 Flow Rate FiO2 05/25/18 06:00 98.6 84 16 131/68 (89) 96 05/21/18 18:42 Room Air I&O- Last 24 Hours up to 6 AM 05/25/18 06:00 Intake Total 890 ml Output Total 0 ml Balance 890 ml Laboratory Data 24H LABS Laboratory Tests 2 05/25/18 06:13: Nucleated Red Blood Cells % (auto) 0.0, Anion Gap 6L, Glomerular Filtration Rate > 60.0, Blood Urea Nitrogen 12#, Creatinine 0.67L, Sodium Level 131L, Potassium Level 3.8, Chloride Level 96L, Carbon Dioxide Level 29, Calcium Level 7.5L CBC/BMP Laboratory Tests 05/25/18 06:13 Red Blood Count 3.63 L, Mean Corpuscular Volume 81.8, Mean Corpuscular Hemoglobin 26.7 L, Mean Corpuscular Hemoglobin Concent 32.7, Red Cell Distribution Width 13.6, Calcium Level 7.5 L Microbiology Microbiology 05/21/18 Blood Culture - Preliminary, Resulted No Growth after 72 hours. All specime... 05/21/18 Blood Culture - Preliminary, Resulted No Growth after 72 hours. All specime... 05/23/18 Stool Occult Blood (YOHANA) - Final, Complete 05/21/18 Urine Culture - Final, Complete DON HARE MD May 25, 2018 11:44
[2018-05-25 14:00] VITALS: BP 129/68
[2018-05-25 21:08] VITALS: BP 140/67
[2018-05-25] MEDS: PRAVASTATIN 20 MG TAB PO SCH (21:08)
[2018-05-25] MEDS: LISINOPRIL 20 MG TAB PO SCH (21:08)
[2018-05-25 22:00] VITALS: BP 140/67
[2018-05-26 02:00] VITALS: BP 131/71
[2018-05-26 06:00] VITALS: BP 124/60
[2018-05-26] MEDS: LEVOTHYROXINE 100MCG TABLET (0.1MG) PO SCH (06:03)
[2018-05-26 06:32] LABS: HEMOGLOBIN 11.2 g/dl (13.5-17.5); MEAN CORPUSCULAR HEMOGLOBIN 27.1 pg (27.0-33.0); MEAN CORPUSCULAR HGB CONC 32.9 g/dl (32.0-36.5); MEAN CORPUSCULAR VOLUME 82.1 fl (80.0-96.0); PLATELET COUNT, AUTOMATED 379 10^3/uL (150-450); RED BLOOD COUNT 4.14 10^6/uL (4.30-6.10); WHITE BLOOD COUNT 10.4 10^3/uL (4.0-10.0)
[2018-05-26 06:40] LABS: BLOOD UREA NITROGEN 16 MG/DL (7-18); CALCIUM LEVEL 8.3 MG/DL (8.8-10.2); CARBON DIOXIDE LEVEL 30 MEQ/L (21-32); CHLORIDE LEVEL 94 MEQ/L (98-107); CREATININE FOR GFR 0.75 MG/DL (0.70-1.30); GLOMERULAR FILTRATION RATE > 60.0 (>42); GLUCOSE, FASTING 112 MG/DL (70-100); POTASSIUM SERUM 3.9 MEQ/L (3.5-5.1); SODIUM LEVEL 129 MEQ/L (136-145)
[2018-05-26] MEDS: FAMOTIDINE 20 MG TAB PO SCH (08:50)
[2018-05-26] MEDS: DOXYCYCLINE HYCLATE 100 MG TAB PO SCH (08:50)
[2018-05-26] MEDS: BENZTROPINE 2 MG TAB PO SCH (08:50)
[2018-05-26] MEDS: ENOXAPARIN 40 MG/0.4 ML SYRINGE (J1650) SC SCH (08:50)
[2018-05-26] MEDS: CYANOCOBALAMIN 500 MCG TAB PO SCH (08:51)
[2018-05-26] MEDS: POTASSIUM CHLORIDE 10 MEQ SR TABLET PO SCH (08:51)
[2018-05-26] MEDS: FERROUS SULFATE 325MG TAB PO SCH (08:51)
[2018-05-26] MEDS: EUCERIN 120GM CREAM TOP SCH (08:51)
[2018-05-26] MEDS: FOLIC ACID 1 MG TAB PO SCH (08:51)
[2018-05-26] MEDS: ASCORBIC ACID 500 MG TAB PO SCH (08:51)
[2018-05-26 10:00] VITALS: BP 131/85
[2018-05-26] MEDS ORDERED: SODI1TAB12 PO (11:49)
[2018-05-26] MEDS ORDERED: DOXY100T PO (11:49)
[2018-05-26] MEDS ORDERED: TORS10TA3 PO (11:49)
--- NOTE | 2018-05-26 13:27 | DS.PDOC ---
Discharge Summary General Date of Admission May 21, 2018 at 14:51 Date of Discharge 05/26/18 Discharge Summary PROCEDURES PERFORMED DURING STAY: [None]. ADMITTING DIAGNOSES: 1. LE cellulitis. DISCHARGE DIAGNOSES: 1. LE cellulitis. 2. Acute on chronic hyponatremia 3. Schizophrenia 4. Hypothyroidism 5. B12 deficiency COMPLICATIONS/CHIEF COMPLAINT: Bilateral Lower Leg Cellulitis. HISTORY OF PRESENT ILLNESS: "David Jade was sent over by [facility] with bilateral lower extremity cellulitis. He does not give much history due to psychiatric illness but, apparently, he has been wearing compression stockings. When someone took them off, they noticed erythema of the lower extremities. He apparently has been felt to be running a fever at times." HOSPITAL COURSE: Patient is a 78-year-old male past medical history of schizophrenia, hyperlipidemia, hypothyroidism and vitamin B12 deficiency presented to the ER with concern for lower extremity cellulitis. Patient was found to have erythema in both bilateral extremities. He was started on antibiotics and has been doing well to course of admission. Patient was also found to have hyponatremia and was treated with IV fluid resuscitation with improvement. He has no clear evidence of hypervolemia and likely from hypovolemia due to poor by mouth intake. Patient likely has chronic hyponatremia. Sodium has improved with no mental status changes noted from baseline at any point during admission. Patient had dressed, packed up his thi ngs and states that he is ready to go and that he feels fine. To discharge patient back to assisted living this facility to complete course of oral antibiotics for cellulitis as well as started on salt tablets. To f/u with PMD for monitoring and repeat bloodwork to monitor sodium. DISCHARGE MEDICATIONS: Please see below. ALLERGIES: Please see below. PHYSICAL EXAMINATION ON DISCHARGE: VITAL SIGNS: Please see below. General: weak, frail. Eyes: Normal sclera, EOMI, JON HENT: Atraumatic, neck supple, moist mucous membranes Cardiovascular: Normal rate. systolic murmurs+. Pulmonary: Clear to auscultation b/l, no wheezing GI: Soft, nontender, nondistended Skin: Warm and dry Neuro: CN grossly intact. No focal deficits. generalized weakness. LABORATORY DATA: Please see below. IMAGING: CXR- Impression: Pleural thickening and linear stranding in the left hemithorax as described. Vascular US- Impression: No evidence of deep venous thrombosis of the bilateral lower extremity femoral popliteal venous system. Note is made of prominent lymph nodes in the right inguinal region, measuring 4.1 x 1.1 x 1.5 cm and 4.2 x 1.0 x 2.3 cm. A left inguinal node measures 5.0 x 1.4 x 3.5 cm. ACTIVITY: [As tolerated]. DIET: Regular diet DISCHARGE PLAN: f/u with PCP and complete Antibiotics DISPOSITION: Back to assisted living facility. DISCHARGE INSTRUCTIONS: 1. f/u PCP. Repeat BMP to monitor Na levels. 2. Complete course of PO antibiotics. 3. Start on salt tablets BID. ITEMS TO FOLLOWUP ON ON OUTPATIENT: None DISCHARGE CONDITION: [Stable]. TIME SPENT ON DISCHARGE: Greater than 32 minutes. Vital Signs/I&Os Vital Signs Date Time Temp Pulse Resp B/P (MAP) Pulse Ox O2 Delivery O2 Flow Rate FiO2 05/26/18 10:00 98.2 80 19 131/85 (100) 96 05/21/18 18:42 Room Air I&O- Last 24 Hours up to 6 AM 05/26/18 06:00 Intake Total 840 ml Output Total 0 ml Balance 840 ml Laboratory Data Labs 24H Laboratory Tests 2 05/26/18 05:45: Nucleated Red Blood Cells % (auto) 0.0, Anion Gap 5L, Glomerular Filtration Rate > 60.0, Blood Urea Nitrogen 16, Creatinine 0.75, Sodium Level 129L, Potassium Level 3.9, Chloride Level 94L, Carbon Dioxide Level 30, Calcium Level 8.3L CBC/BMP Laboratory Tests 05/26/18 05:45 Red Blood Count 4.14 L, Mean Corpuscular Volume 82.1, Mean Corpuscular Hemoglobin 27.1, Mean Corpuscular Hemoglobin Concent 32.9, Red Cell Distribution Width 13.6, Calcium Level 8.3 L Microbiology Microbiology 05/21/18 Blood Culture - Final, Complete NO GROWTH AFTER 5 DAYS 05/21/18 Blood Culture - Final, Complete NO GROWTH AFTER 5 DAYS 05/23/18 Stool Occult Blood (YOHANA) - Final, Complete 05/21/18 Urine Culture - Final, Complete Discharge Medications Scheduled Ascorbic Acid (Ascorbic Acid) 500 Mg Tablet, 500 MG PO DAILY, (Reported) Benztropine Mesylate (Benztropine Mesylate) 2 Mg Tablet, 2 MG PO BID, (Reported) Cyanocobalamin (Vitamin B-12) (B-12) 500 Mcg Tablet, 500 MCG PO DAILY, (Reported) Doxycycline Hyclate (Doxycycline Hyclate) 100 Mg Tablet, 100 MG PO BID Famotidine (Famotidine) 40 Mg Tablet, 40 MG PO DAILY, (Reported) Ferrous Sulfate (Ferrous Sulfate) 325 Mg Tablet.dr, 325 MG PO DAILY, (Reported) Fluphenazine HCl (Fluphenazine HCl) 10 Mg Tablet, 20 MG PO QPM, (Reported) Folic Acid (Folic Acid) 0.4 Mg Tablet, 400 MCG PO DAILY, (Reported) Levothyroxine Sodium (Levothyroxine Sodium) 100 Mcg Tablet, 100 MCG PO QAM, (Reported) Lisinopril (Lisinopril) 20 Mg Tablet, 20 MG PO QPM, (Reported) Potassium Chloride (Potassium Chloride) 10 Meq Capsule.er, 10 MEQ PO DAILY, (Reported) Pravastatin Sodium (Pravastatin Sodium) 40 Mg Tablet, 40 MG PO QPM, (Reported) Sodium Chloride (Sodium Chloride) 1 Gm Tablet, 1 GRAM PO BID Torsemide (Torsemide) 10 Mg Tablet, 10 MG PO QAM TAKES AT 1600 Allergies Coded Allergies: No Known Allergies (Unverified , 05/21/18) AMANDA LANGLEY MD May 26, 2018 13:27
== END 2018-05-26 13:55 | DRG 603 ==
LOC: EDBD 10:24 → M ED 10:24 → M ED INP 14:51 → M MS5PR 18:49
PROVIDERS: ADMIT Family Medicine; ATTEND Student in an Organized Health Care Education/Training Program
DX: L03.115 Cellulitis of right lower limb (principal); E87.1 Hypo-osmolality and hyponatremia; L03.116 Cellulitis of left lower limb; E03.9 Hypothyroidism, unspecified; E78.5 Hyperlipidemia, unspecified; F20.9 Schizophrenia, unspecified; I11.9 Hypertensive heart disease without heart failure; I87.2 Venous insufficiency (chronic) (peripheral); E53.8 Deficiency of other specified B group vitamins; D50.9 Iron deficiency anemia, unspecified; Z66 Do not resuscitate; Z79.899 Other long term (current) drug therapy

== ENCOUNTER 2018-05-27 16:02 | Emergency (ER) | payer MEDICARE, MEDICAID ==
[~2018-05-27] VITALS: Ht 177.8 cm; Wt 89.1 kg
[2018-05-27 16:03] VITALS: BP 124/57
--- NOTE | 2018-05-27 17:47 | REP ---
CT Head without contrast HISTORY: Trauma COMPARISON: None An area of decreased attenuation is present in the left basal ganglia. This represents an old lacunar infarction. Areas of decreased attenuation are present in the periventricular white matter. This represents small-vessel ischemic disease. There is no intraparenchymal hemorrhage, acute infarct, mass or midline shift. The ventricular system and cortical sulci as well as subarachnoid space in the posterior fossa are dilated consistent with mild volume loss. There is no extra cerebral collection. There is no fracture. The visualized sinuses are clear. IMPRESSION: 1. Old left basal ganglia lacunar infarction. 2. Small vessel ischemic disease. 3. Mild volume loss. Electronically Signed by Elmer Menon MD 05/27/2018 05:38 P
--- NOTE | 2018-05-27 17:56 | REP ---
CT cervical spine without contrast HISTORY: Trauma COMPARISON: None There is no acute fracture or subluxation. The disc bulges are present at the C2-3 through C4-5 levels. Disc bulges with associated osteophyte formation are present at the C5-6 and C6-7 levels. There is minimal narrowing of the spinal canal. Uncinate process and/or facet hypertrophy are present at the C2-3 through C7 -T1 levels. These findings produce minimal to mild narrowing of the neural foramina. The C4-5 through C6-7 intervertebral discs are decreased in height consistent with disc degeneration. There are 2 mm of anterior subluxation of C3-4 and C4-5. IMPRESSION: 1. There is no acute fracture or subluxation. 2. There is cervical spondylosis at the C2-3 through C7-T1 levels Electronically Signed by Elmer Menon MD 05/27/2018 05:47 P
--- NOTE | 2018-05-27 18:23 | REP ---
MAXILLOFACIAL CT WITHOUT CONTRAST: HISTORY: Trauma. Minimal mucosal thickening is present in the left maxillary and ethmoid sinuses. A retention cyst is present in the right maxillary sinus. The remaining sinuses are clear. The ostiomeatal units are patent. The middle and inferior nasal turbinates are partially paradoxical. There is twan bullosa of the middle nasal turbinates. There is minimal deviation of the nasal septum to the left. A spur is present arising from the left side of the nasal septum. The cribriform plate, medial sparks of the orbits and optic canals are intact. The carotid canals form a segment of the posterolateral sparks of the sphenoid sinus. There is no fracture. Soft tissue swelling is present over the right frontal bone. IMPRESSION: 1. Sinus mucosal thickening as described above.2. Right maxillary sinus retention cyst. Electronically Signed by Elmer Menon MD 05/27/2018 06:30 P
== END 2018-05-27 18:24 | disposition home or self-care (01) ==
LOC: M ED 16:02
DX: S00.83XA Contusion of other part of head, initial encounter (principal); M47.812 Spondylosis without myelopathy or radiculopathy, cervical region; W19.XXXA Unspecified fall, initial encounter; Y92.129 Unspecified place in nursing home as the place of occurrence of the external cause; I10 Essential (primary) hypertension; E78.00 Pure hypercholesterolemia, unspecified; E03.9 Hypothyroidism, unspecified; F20.9 Schizophrenia, unspecified; Z86.73 Personal history of transient ischemic attack (TIA), and cerebral infarction without residual deficits; Z79.899 Other long term (current) drug therapy

== ENCOUNTER 2018-06-14 11:14 | Emergency (ER) | payer MEDICARE, MEDICAID ==
[~2018-06-14] VITALS: Ht 177.8 cm; Wt 88.6 kg
[2018-06-14 12:20] LABS: BASO % 0.4 % (0.0-1.0); EOS # 0.4 10^3/uL (0.0-0.50); EOS % 4.3 % (0.0-3.0); HEMOGLOBIN 10.5 g/dl (13.5-17.5); LYMPH % 12.4 % (24.0-44.0); MEAN CORPUSCULAR HEMOGLOBIN 26.8 pg (27.0-33.0); MEAN CORPUSCULAR HGB CONC 31.8 g/dl (32.0-36.5); MEAN CORPUSCULAR VOLUME 84.2 fl (80.0-96.0); MONO # 1.1 10^3/uL (0.0-0.8); MONO % 13.5 % (0.0-5.0); NEUTROPHILS # 5.6 10^3/uL (1.8-7.7); NEUTROPHILS % 68.7 % (36.0-66.0); PLATELET COUNT, AUTOMATED 279 10^3/uL (150-450); RED BLOOD COUNT 3.92 10^6/uL (4.30-6.10); WHITE BLOOD COUNT 8.1 10^3/uL (4.0-10.0)
[2018-06-14] MEDS ORDERED: SODI1TAB6 PO (12:28)
[2018-06-14] MEDS ORDERED: TORS10TA3 PO (12:28)
[2018-06-14 12:47] LABS: ERYTHROCYTE SEDIMENTATION RATE 66 mm/hr (0-20)
[2018-06-14 12:54] LABS: ALT/SGPT 14 U/L (12-78); BILIRUBIN,DIRECT < 0.1 MG/DL (0.0-0.2); BILIRUBIN,TOTAL 0.3 MG/DL (0.2-1.0); BLOOD UREA NITROGEN 12 MG/DL (7-18); C REACTIVE PROTEIN QUANTITATIV 1.44 MG/DL (0.00-0.30); CALCIUM LEVEL 8.1 MG/DL (8.8-10.2); CARBON DIOXIDE LEVEL 30 MEQ/L (21-32); CHLORIDE LEVEL 97 MEQ/L (98-107); CREATININE FOR GFR 0.64 MG/DL (0.70-1.30); GLOMERULAR FILTRATION RATE > 60.0 (>42); GLUCOSE, FASTING 76 MG/DL (70-100); SODIUM LEVEL 130 MEQ/L (136-145); TOTAL PROTEIN 6.9 GM/DL (6.4-8.2)
[2018-06-14] MEDS ORDERED: KEFL500C17 PO ×2 (14:02→16:35)
--- NOTE | 2018-06-14 14:07 | REP ---
Bilateral lower extremity Duplex Doppler venous ultrasound: Real time compression and duplex Doppler interrogation of the bilateral lower extremity deep venous system is performed. Bilaterally, the common femoral, superficial femoral and popliteal veins are fully compressible with transducer pressure and demonstrate normal spontaneous and phasic flow, without evidence of deep venous thrombosis. Impression: No evidence of deep venous thrombosis of the bilateral lower extremity femoral popliteal venous system. Electronically Signed by Joe Bhatti MD 06/14/2018 01:58 P
[2018-06-14] MEDS ORDERED: CEPHALEXIN 500 MG CAP PO ONE (14:15)
[2018-06-14 14:42] VITALS: BP 144/65
== END 2018-06-14 14:51 | disposition home or self-care (01) ==
LOC: M ED 11:14 → EDBD 11:14 → EDSEX 11:14 → M ED 14:51
DX: L03.115 Cellulitis of right lower limb (principal); I51.9 Heart disease, unspecified; E78.5 Hyperlipidemia, unspecified; Z79.899 Other long term (current) drug therapy

== ENCOUNTER 2018-09-13 10:08 | Emergency (ER) | payer MEDICARE, MEDICAID ==
[~2018-09-13] VITALS: Ht 175.3 cm; Wt 183.8 kg
[~2018-09-13 10:08] MED LIST changes: +KEFL500C17 PO; +SODI1TAB6 PO
--- NOTE | 2018-09-13 10:50 | REP ---
Swelling and erythema. Technique: AP, lateral, bilateral oblique views of the right foot. Findings: Mild/moderate swelling. Mild osteopenia and age-related changes are appreciated along with post traumatic/post surgical arthritic changes at the ankle. No acute fracture dislocation. No subcutaneous emphysema. Impression: Mild/moderate swelling. No acute fracture or dislocation. Electronically Signed by Bob Abbott MD 09/13/2018 10:41 A
[2018-09-13 11:11] LABS: BASO % 0.5 % (0.0-1.0); EOS # 0.2 10^3/uL (0.0-0.50); EOS % 2.6 % (0.0-3.0); HEMATOCRIT 35.2 % (42.0-52.0); HEMOGLOBIN 11.6 g/dl (13.5-17.5); LYMPH # 1.1 10^3/uL (1.5-4.5); LYMPH % 12.5 % (24.0-44.0); MEAN CORPUSCULAR HEMOGLOBIN 28.2 pg (27.0-33.0); MEAN CORPUSCULAR VOLUME 85.6 fl (80.0-96.0); MONO # 0.9 10^3/uL (0.0-0.8); MONO % 10.2 % (0.0-5.0); NEUTROPHILS # 6.2 10^3/uL (1.8-7.7); NEUTROPHILS % 73.5 % (36.0-66.0); PLATELET COUNT, AUTOMATED 224 10^3/uL (150-450); RED BLOOD COUNT 4.11 10^6/uL (4.30-6.10); WHITE BLOOD COUNT 8.5 10^3/uL (4.0-10.0)
[2018-09-13 11:30] LABS: ERYTHROCYTE SEDIMENTATION RATE 52 mm/hr (0-20)
[2018-09-13 11:35] LABS: ALBUMIN 3.3 GM/DL (3.2-5.2); ALT/SGPT 13 U/L (12-78); BILIRUBIN,TOTAL 0.4 MG/DL (0.2-1.0); BLOOD UREA NITROGEN 9 MG/DL (7-18); C REACTIVE PROTEIN QUANTITATIV < 0.30 MG/DL (0.00-0.30); CALCIUM LEVEL 8.1 MG/DL (8.8-10.2); CARBON DIOXIDE LEVEL 32 MEQ/L (21-32); CHLORIDE LEVEL 97 MEQ/L (98-107); CREATININE FOR GFR 0.77 MG/DL (0.70-1.30); GLOMERULAR FILTRATION RATE > 60.0 (>42); GLUCOSE, FASTING 82 MG/DL (70-100); POTASSIUM SERUM 4.1 MEQ/L (3.5-5.1); SODIUM LEVEL 133 MEQ/L (136-145); TOTAL PROTEIN 6.9 GM/DL (6.4-8.2)
[2018-09-13] MEDS ORDERED: DOXY100C37 PO (12:16)
[2018-09-13] MEDS ORDERED: VANCOMYCIN HCL 1,000 MG, VIAL MATE ADAPTER 1 EACH in D5W 250 ML IV ONE (12:30)
[2018-09-13] MEDS ORDERED: diphenhydrAMINE INJ 50MG/ML VIAL (J1200) IV STA (13:02)
[2018-09-13] MEDS ORDERED: cefTRIAXone SOD 1 GM in D5W MINI-BAG PLUS 50 ML IV ONE (13:15)
[2018-09-13 14:36] VITALS: BP 188/89
== END 2018-09-13 14:39 | disposition home or self-care (01) ==
LOC: M ED 10:08
DX: L03.115 Cellulitis of right lower limb (principal); I51.9 Heart disease, unspecified; E78.5 Hyperlipidemia, unspecified; F20.9 Schizophrenia, unspecified; R01.1 Cardiac murmur, unspecified; F79 Unspecified intellectual disabilities; Z79.899 Other long term (current) drug therapy; Z88.1 Allergy status to other antibiotic agents
CPT/HCPCS: 73630; 80053; 85025; 85652; 86140; 87040; 96374; 96375; 99284; J0696; J1200; J3370

== ENCOUNTER 2018-10-06 12:45 | Inpatient (IN) | payer MEDICARE, MEDICAID ==
[~2018-10-06] VITALS: Ht 180.3 cm; Wt 81.7 kg
[~2018-10-06 12:45] MED LIST changes: +DOXY100C37 PO
[2018-10-06 13:41] LABS: BASO % 0.5 % (0.0-1.0); EOS # 0.3 10^3/uL (0.0-0.50); EOS % 3.6 % (0.0-3.0); LYMPH # 1.1 10^3/uL (1.5-4.5); LYMPH % 15.2 % (24.0-44.0); MEAN CORPUSCULAR HEMOGLOBIN 28.9 pg (27.0-33.0); MEAN CORPUSCULAR HGB CONC 33.3 g/dl (32.0-36.5); MEAN CORPUSCULAR VOLUME 86.7 fl (80.0-96.0); MONO # 0.9 10^3/uL (0.0-0.8); MONO % 11.4 % (0.0-5.0); NEUTROPHILS # 5.1 10^3/uL (1.8-7.7); NEUTROPHILS % 68.5 % (36.0-66.0); PLATELET COUNT, AUTOMATED 218 10^3/uL (150-450); RED BLOOD COUNT 4.15 10^6/uL (4.30-6.10); WHITE BLOOD COUNT 7.4 10^3/uL (4.0-10.0)
[2018-10-06] MEDS ORDERED: NS 1,000 ML IV ONE (13:45)
[2018-10-06] MEDS ORDERED: AMPICILLIN SOD/SULBACTAM SOD 3 GM in D5W MINI-BAG PLUS 100 ML IV ONE (13:45)
[2018-10-06 14:05] LABS: ALBUMIN 3.1 GM/DL (3.2-5.2); ALT/SGPT 16 U/L (12-78); BILIRUBIN,DIRECT < 0.1 MG/DL (0.0-0.2); BILIRUBIN,TOTAL 0.4 MG/DL (0.2-1.0); BLOOD UREA NITROGEN 13 MG/DL (7-18); CALCIUM LEVEL 8.2 MG/DL (8.8-10.2); CARBON DIOXIDE LEVEL 35 MEQ/L (21-32); CHLORIDE LEVEL 97 MEQ/L (98-107); CREATININE FOR GFR 0.75 MG/DL (0.70-1.30); GLOMERULAR FILTRATION RATE > 60.0 (>42); GLUCOSE, FASTING 114 MG/DL (70-100); POTASSIUM SERUM 3.5 MEQ/L (3.5-5.1); SODIUM LEVEL 135 MEQ/L (136-145)
[2018-10-06] MEDS ORDERED: CEPH500C PO (14:05)
[2018-10-06] MEDS ORDERED: ASCO500T29 PO (14:05)
[2018-10-06] MEDS ORDERED: NYST1POW9 TOP (14:05)
--- NOTE | 2018-10-06 15:24 | REP ---
Right lower extremity Duplex Doppler venous ultrasound: Real time compression and duplex Doppler interrogation of the right lower extremity deep venous system is performed. The right common femoral, superficial femoral and popliteal veins are fully compressible with transducer pressure and demonstrate normal spontaneous and phasic flow, without evidence of deep venous thrombosis. Impression: No evidence of deep venous thrombosis of the right lower extremity femoral popliteal venous system. Electronically Signed by Joe Bhatti MD 10/06/2018 03:16 P
[2018-10-06] MEDS ORDERED: FUROSEMIDE 20 MG/2 ML VIAL (J1940) IV ONE (17:00)
[2018-10-06] MEDS ORDERED: ENOXAPARIN 30 MG/0.3 ML SYR (J1650) SC ONE (17:00)
[2018-10-06 17:34] LABS: C REACTIVE PROTEIN QUANTITATIV < 0.30 MG/DL (0.00-0.30)
[2018-10-06 18:06] LABS: ERYTHROCYTE SEDIMENTATION RATE 33 mm/hr (0-20)
--- NOTE | 2018-10-06 18:15 | HPE ---
DATE OF ADMISSION: 10/06/2018 PRIMARY CARE PROVIDER: Dr. Darlin Lugo MANAGER OF MEDICAL: Dr. Frias CHIEF COMPLAINT: Right foot pain and swelling. HISTORY OF PRESENT ILLNESS: This is a 78-year-old male with a past medical history significant for schizophrenia, chronic venous insufficiency, old left basal ganglia lacunar infarct, dyslipidemia, hypertensive heart disease, hypothyroidism, spondylosis without myelopathy, hyponatremia, iron deficiency anemia, chronic anemia, benign prostatic hypertrophy, was brought in to the emergency room from [facility] due to increasing pain and swelling of the right lower extremity with increasing venous drainage. The patient has been treated as an outpatient for cellulitis of the right foot with progressive erythema, pain and swelling. Denies any fever, chills but has had difficulty with ambulation. IQRA wrap has been given and daily dressing changes. Per the patient, he has not had any significant improvement. In the emergency room (ER), he is afebrile at 97.8. Normal white count. C-reactive protein (CRP) and sedimentation rate are still pending. Hospitalist was called to admit for right foot cellulitis in the setting of chronic venous insufficiency. PAST MEDICAL HISTORY: 1. Chronic venous insufficiency. 2. Old left basal ganglia infarct. 3. Dyslipidemia. 4. Hypertensive heart disease. 5. Schizophrenia. 6. Recurrent cellulitis of the right foot. 7. Iron deficiency anemia. 8. Hypothyroidism. 9. Benign prostatic hypertrophy. PAST SURGICAL HISTORY: Unknown. JAIL MEDICATIONS: - cephalexin 500 mg twice a day - nystatin topical powder - ascorbic acid 500 daily - benztropine 2 mg twice a day - B12 500 mcg daily - folic acid 400 mg daily - sodium chloride 1 gram twice a day - famotidine 40 daily - ferrous sulfate 325 daily - fluphenazine 200 mg every evening - levothyroxine 100 mcg every morning - lisinopril 20 every evening - potassium 10 mEq daily - pravastatin 40 mg every evening - torsemide 200 mg every morning ALLERGIES: VANCOMYCIN. SOCIAL HISTORY: The patient is currently a [facility] resident. 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 He used to smoke cigars 3-4, quit 20 years ago. No alcohol use. The patient is DO NOT RESUSCITATE/DO NOT INTUBATE. FAMILY HISTORY: Mother age 89, unknown medical problems. Father age 79, unknown medical problems per the patient. REVIEW OF SYSTEMS: Per history of present illness (HPI), 12-point system otherwise negative. PHYSICAL EXAMINATION: VITAL SIGNS: Temperature 97.8, pulse 89, respiratory rate 16, blood pressure 113/58, 96% on room air. GENERAL: The patient is awake, alert, and oriented to person and place, disoriented to time. He is answering questions appropriately but appears older and disheveled. He has missing teeth with poor dentition. Dry mucous membranes. Pupils are round and reactive. Extraocular muscles are intact. No cervical lymphadenopathy or thyromegaly. Tongue is midline. Face is symmetric. LUNGS: Clear to auscultation. Air entry is equal bilaterally. No wheezing or rales. HEART: S1, S2, sinus rhythm. No carotid bruits noted. There is a 2/6 systolic ejection murmur in the aortic area. ABDOMEN: Soft, nontender, nondistended. Positive bowel sounds times four quadrants. No rebound, guarding, or hepatosplenomegaly. EXTREMITIES: The patient has 2+ pitting edema to the sacrum. He has chronic venous stasis changes in bilateral lower extremities. Right foot about midway up the king from the ankle has significant erythema. The foot has serous drainage. Dorsalis pedis and posterior tibialis are diminished but noted. LABORATORY DATA: White count 7.4, hemoglobin 12, hematocrit 36, platelet count 218. Sodium 135, potassium 3.5, chloride 97, bicarbonate 35, BUN 13, creatinine 0.75, glucose of 114, lactic acid of 1.1. ASSESSMENT AND PLAN: A 78-year-old male with a history of schizophrenia with history of bilateral lower extremity cellulitis who presents to the emergency room with increasing pain, swelling and redness of the right lower extremity with serous drainage. ACUTE ISSUES: 1. Lower extremity cellulitis. The patient will be admitted to the medical/surgical floor, will be monitored with repeat complete blood count (CBC), C-reactive protein (CRP), procalcitonin level. He is being given ceftaroline 600 mg every 12 hours to be adjusted renally if needed. 2. Chronic venous insufficiency. Elevate bilateral lower extremities on two pillows at all times while the patient is supine. Wound care consultations via physical therapy as well as Dr. Topete. Surgical consult for wound care. Unna boot if possible. Physical therapy evaluation and treatment. 3. Schizophrenia. Continue home medication. 4. Dyslipidemia, on chronic pravastatin. 5. Hypertensive heart disease, on lisinopril and torsemide. 6. Hypothyroidism, on chronic levothyroxine. 7. B12 deficiency. Resume B12 supplements. 8. Deep vein thrombosis (DVT) prophylaxis with renally dosed Lovenox. MTDD
[2018-10-06 18:35] VITALS: BP 145/68
[2018-10-06] MEDS: BENZTROPINE 2 MG TAB PO SCH (21:03)
[2018-10-06] MEDS: SODIUM CHLORIDE 1 GM TAB PO SCH (21:04)
[2018-10-06] MEDS: PRAVASTATIN 20 MG TAB PO SCH (21:04)
[2018-10-06] MEDS: LISINOPRIL 20 MG TAB PO SCH (21:05)
[2018-10-06] MEDS: CEFTAROLINE FOSAMIL 600 MG in D5W MINI-BAG PLUS 50 ML IV SCH (21:05)
[2018-10-07 06:00] VITALS: BP 136/74
[2018-10-07 06:04] LABS: HEMATOCRIT 33.1 % (42.0-52.0); HEMOGLOBIN 11.1 g/dl (13.5-17.5); MEAN CORPUSCULAR HEMOGLOBIN 28.5 pg (27.0-33.0); MEAN CORPUSCULAR HGB CONC 33.5 g/dl (32.0-36.5); MEAN CORPUSCULAR VOLUME 85.1 fl (80.0-96.0); PLATELET COUNT, AUTOMATED 198 10^3/uL (150-450); RED BLOOD COUNT 3.89 10^6/uL (4.30-6.10); WHITE BLOOD COUNT 7.8 10^3/uL (4.0-10.0)
[2018-10-07] MEDS: LEVOTHYROXINE 100MCG TABLET (0.1MG) PO SCH (06:13)
[2018-10-07 06:27] LABS: ALBUMIN 2.7 GM/DL (3.2-5.2); ALT/SGPT 11 U/L (12-78); BILIRUBIN,TOTAL 0.4 MG/DL (0.2-1.0); BLOOD UREA NITROGEN 10 MG/DL (7-18); C REACTIVE PROTEIN QUANTITATIV 0.38 MG/DL (0.00-0.30); CALCIUM LEVEL 7.9 MG/DL (8.8-10.2); CARBON DIOXIDE LEVEL 30 MEQ/L (21-32); CHLORIDE LEVEL 100 MEQ/L (98-107); CREATININE FOR GFR 0.54 MG/DL (0.70-1.30); ERYTHROCYTE SEDIMENTATION RATE 30 mm/hr (0-20); GLOMERULAR FILTRATION RATE > 60.0 (>42); GLUCOSE, FASTING 102 MG/DL (70-100); POTASSIUM SERUM 3.9 MEQ/L (3.5-5.1); SODIUM LEVEL 137 MEQ/L (136-145); TOTAL PROTEIN 5.7 GM/DL (6.4-8.2)
--- NOTE | 2018-10-07 07:07 | REP ---
RIGHT FOOT, FOUR VIEWS: Four views of the right foot are performed. No fracture or dislocation is seen. Metallic screw is seen in the distal tibia. There is soft tissue calcification between the distal tibia and fibula. There is mild narrowing of the 1st metatarsophalangeal joint. There is a focal possible lucency in the 1st distal phalanx with possible focal osteopenia and osteomyelitis at that location. Further evaluation could be made with MRI of the right foot if clinically indicated. Electronically Signed by Joe Bhatti MD 10/07/2018 11:53 P
--- NOTE | 2018-10-07 08:11 | IPNPDOC ---
Date Seen The patient was seen on 10/07/18. Progress Note SUBJECTIVE: Pt says he slept well, and has minimal pain in his right foot. xray: cannot rule out osteomyelitis. MRI right foot ordered. c/o persistent swelling b/l le on torsemide s/p one dose lasix yesterday. no fever chills. OBJECTIVE: PHYSICAL EXAMINATION: VITAL SIGNS: PLS SEE BELOW GENERAL: The patient is awake, alert, and oriented to person and place, disoriented to time. He is answering questions appropriately but appears older and disheveled. He has missing teeth with poor dentition. Dry mucous membranes. Pupils are round and reactive. Extraocular muscles are intact. No cervical lymphadenopathy or thyromegaly. Tongue is midline. Face is symmetric. LUNGS: Clear to auscultation. Air entry is equal bilaterally. No wheezing or rales. HEART: S1, S2, sinus rhythm. No carotid bruits noted. There is a 2/6 systolic ejection murmur in the aortic area. ABDOMEN: Soft, nontender, nondistended. Positive bowel sounds times four quadrants. No rebound, guarding, or hepatosplenomegaly. EXTREMITIES: The patient has 2+ pitting edema to the sacrum. He has chronic venous stasis changes in bilateral lower extremities. Right foot about midway up the king from the ankle has significant erythema. The foot has serous drainage. Dorsalis pedis and posterior tibialis are diminished but noted. LABORATORY DATA:, IMAGING STUDIES, MICROBIOLOGY: REVIEWED, PLS SEE BELOW ASSESSMENT AND PLAN: A 78-year-old male with a history of schizophrenia with history of bilateral lower extremity cellulitis who presents to the emergency room with increasing pain, swelling and redness of the right lower extremity with serous drainage. ACUTE ISSUES: 1. Right Lower extremity cellulitis. admitted to the medical/surgical floor, monitored with serial complete blood count (CBC), C-reactive protein (CRP), procalcitonin level. on ceftaroline 600 mg every 12 hours to be adjusted renally if needed. MRI right foot to rule out osteomyelitis ordered today dr. sanabria consulted. rN to arrange teleconference for wound care PT/OT consulted for ambulation elevate on 2 pillows while supine diurese and decrease LE edema continue w jun bandages to LLE 2. Chronic venous insufficiency. Elevate bilateral lower extremities on two pillows at all times while the patient is supine. Wound care consultations via physical therapy as well as Dr. Sanabria. Surgical consult for wound care. Unna boot if possible. Physical therapy evaluation and treatment. 3. Schizophrenia. Continue home medication. 4. Dyslipidemia, on chronic pravastatin. 5. Hypertensive heart disease, on lisinopril and torsemide. 6. Hypothyroidism, on chronic levothyroxine. 7. B12 deficiency. Resume B12 supplements. 8. Deep vein thrombosis (DVT) prophylaxis with renally dosed Lovenox. VS, I&O, 24H, Fishbone Vital Signs/I&O Vital Signs Date Time Temp Pulse Resp B/P (MAP) Pulse Ox O2 Delivery O2 Flow Rate FiO2 10/07/18 06:00 98.8 84 19 136/74 (94) 99 10/06/18 18:24 Room Air I&O- Last 24 Hours up to 6 AM 10/07/18 06:00 Intake Total 1450 ml Output Total 175 ml Balance 1275 ml Laboratory Data 24H LABS Laboratory Tests 2 10/06/18 13:23: Immature Granulocyte % (Auto) 0.8, White Blood Count 7.4, Red Blood Count 4.15L, Hemoglobin 12.0L, Hematocrit 36.0L, Mean Corpuscular Volume 86.7, Mean Corpuscular Hemoglobin 28.9, Mean Corpuscular Hemoglobin Concent 33.3, Red Cell Distribution Width 15.4H, Platelet Count 218, Neutrophils (%) (Auto) 68.5H, Lymphocytes (%) (Auto) 15.2L, Monocytes (%) (Auto) 11.4H, Eosinophils (%) (Auto) 3.6H, Basophils (%) (Auto) 0.5, Neutrophils # (Auto) 5.1, Lymphocytes # (Auto) 1.1L, Monocytes # (Auto) 0.9H, Eosinophils # (Auto) 0.3, Basophils # (Auto) 0.0, Nucleated Red Blood Cells % (auto) 0.0, Erythrocyte Sedimentation Rate 33H, Anion Gap 3L, Glomerular Filtration Rate > 60.0, Lactic Acid Level 1.1, Calcium Level 8.2L, Aspartate Amino Transf (AST/SGOT) 8, Alanine Aminotransferase (ALT/SGPT) 16, Alkaline Phosphatase 70, Total Bilirubin 0.4, Direct Bilirubin < 0.1, C-Reactive Protein, Quantitative < 0.30, Total Protein 7.0, Albumin 3.1L, Albumin/Globulin Ratio 0.79L 10/06/18 16:53: 10/06/18 17:50: Methicillin-Resist S.aureus DNA PCR NOT DETECTED 10/07/18 05:26: Nucleated Red Blood Cells % (auto) 0.0, Erythrocyte Sedimentation Rate 30H, Anion Gap 7L, Glomerular Filtration Rate > 60.0, Calcium Level 7.9L, Aspartate Amino Transf (AST/SGOT) 11, Alanine Aminotransferase (ALT/SGPT) 11L, Alkaline Phosphatase 63, Total Bilirubin 0.4, C-Reactive Protein, Quantitative 0.38H, Total Protein 5.7L, Albumin 2.7L, Albumin/Globulin Ratio 0.90L, Blood Urea Nitrogen 10, Creatinine 0.54L, Sodium Level 137, Potassium Level 3.9, Chloride Level 100, Carbon Dioxide Level 30 CBC/BMP Laboratory Tests 10/06/18 13:23 Red Blood Count 4.15 L, Mean Corpuscular Volume 86.7, Mean Corpuscular Hemoglobin 28.9, Mean Corpuscular Hemoglobin Concent 33.3, Red Cell Distribution Width 15.4 H, Neutrophils (%) (Auto) 68.5 H, Lymphocytes (%) (Auto) 15.2 L, Monocytes (%) (Auto) 11.4 H, Eosinophils (%) (Auto) 3.6 H, Basophils (%) (Auto) 0.5, Neutrophils # (Auto) 5.1, Lymphocytes # (Auto) 1.1 L, Monocytes # (Auto) 0.9 H, Eosinophils # (Auto) 0.3, Basophils # (Auto) 0.0 10/07/18 05:26 Red Blood Count 3.89 L, Mean Corpuscular Volume 85.1, Mean Corpuscular Hemoglo bin 28.5, Mean Corpuscular Hemoglobin Concent 33.5, Red Cell Distribution Width 15.2 H, Calcium Level 7.9 L, Aspartate Amino Transf (AST/SGOT) 11, Alanine Aminotransferase (ALT/SGPT) 11 L, Alkaline Phosphatase 63, Total Bilirubin 0.4, Total Protein 5.7 L, Albumin 2.7 L Microbiology Microbiology 10/06/18 Blood Culture, Received Pending 10/06/18 Blood Culture, Received Pending CHRISTEL GONZALEZ MD Oct 07, 2018 08:11
[2018-10-07] MEDS ORDERED: PROHANCE 279.3MG/ML 15ML VIAL (A9576) As Ordered ONE (09:00)
[2018-10-07] MEDS ORDERED: PROHANCE 279.3MG/ML 5ML VIAL (A9576) As Ordered ONE (09:00)
[2018-10-07] MEDS: TORSEMIDE 20 MG TAB PO SCH (10:32)
[2018-10-07] MEDS: FERROUS SULFATE 325MG TAB PO SCH (10:33)
[2018-10-07] MEDS: POTASSIUM CHLORIDE 10 MEQ SR TABLET PO SCH (10:33)
[2018-10-07] MEDS: FAMOTIDINE 20 MG TAB PO SCH (10:33)
[2018-10-07] MEDS: SODIUM CHLORIDE 1 GM TAB PO SCH ×2 (10:33→20:32)
[2018-10-07] MEDS: BENZTROPINE 2 MG TAB PO SCH ×2 (10:34→20:31)
[2018-10-07] MEDS: CEFTAROLINE FOSAMIL 600 MG in D5W MINI-BAG PLUS 50 ML IV SCH ×2 (10:34→20:32)
[2018-10-07] MEDS: ENOXAPARIN 30 MG/0.3 ML SYR (J1650) SC SCH (10:35)
--- NOTE | 2018-10-07 11:03 | REP ---
MRI RIGHT FOOT: TECHNIQUE: Multiple sequences obtained in the axial, coronal and sagittal planes prior to and following the intravenous administration of 16.8 mL ProHance. Correlation is made with plain films 10/06/2018. The osseous structures of the foot demonstrate normal bone marrow signal. There is no bone marrow edema or occult fracture. There is no evidence of osteomyelitis. Metallic screws are seen in the distal tibia. There is diffuse ill-defined high signal on T2-weighted images in the soft tissues of the foot compatible with edema. There is also scattered ill-defined enhancement of the soft tissues compatible with cellulitis. No abscess is seen. The visualized tendons are intact. IMPRESSION: Edema and cellulitis without evidence of osteomyelitis or abscess. Electronically Signed by Joe Bhatti MD 10/07/2018 11:58 P
[2018-10-07 14:00] VITALS: BP 115/68
[2018-10-07] MEDS: DIAPER RELIEF PASTE (DESITIN) 60GM TOP SCH (15:12)
[2018-10-07] MEDS: VANICREAM MOISTURIZING SKIN CREAM 113GM TUBE TOP SCH (17:13)
[2018-10-07] MEDS: PRAVASTATIN 20 MG TAB PO SCH (20:31)
[2018-10-07] MEDS: LISINOPRIL 20 MG TAB PO SCH (20:31)
[2018-10-07 22:00] VITALS: BP 138/78
[2018-10-08] MEDS: LEVOTHYROXINE 100MCG TABLET (0.1MG) PO SCH (05:09)
[2018-10-08 06:00] VITALS: BP 131/71
[2018-10-08] MEDS: ENOXAPARIN 30 MG/0.3 ML SYR (J1650) SC SCH (09:25)
[2018-10-08] MEDS: FAMOTIDINE 20 MG TAB PO SCH (09:26)
[2018-10-08] MEDS: CEFTAROLINE FOSAMIL 600 MG in D5W MINI-BAG PLUS 50 ML IV SCH (09:26)
[2018-10-08] MEDS: TORSEMIDE 20 MG TAB PO SCH (09:26)
[2018-10-08] MEDS: SODIUM CHLORIDE 1 GM TAB PO SCH ×2 (09:26→20:50)
[2018-10-08] MEDS: POTASSIUM CHLORIDE 10 MEQ SR TABLET PO SCH (09:27)
[2018-10-08] MEDS: VANICREAM MOISTURIZING SKIN CREAM 113GM TUBE TOP SCH (09:27)
[2018-10-08] MEDS: FERROUS SULFATE 325MG TAB PO SCH (09:27)
[2018-10-08] MEDS: BENZTROPINE 2 MG TAB PO SCH ×2 (09:27→20:49)
[2018-10-08] MEDS: DIAPER RELIEF PASTE (DESITIN) 60GM TOP SCH (09:28)
--- NOTE | 2018-10-08 13:37 | IPNPDOC ---
Date Seen The patient was seen on 10/08/18. Progress Note SUBJECTIVE: "I want to go home." Pt denies any pain in right LE. no fever or chills overnight. continues to have serous drainage without purulence. MRI rt foot no osteo OBJECTIVE: PHYSICAL EXAMINATION: VITAL SIGNS:PLS SEE BELOW GENERAL: sitting at the bedside eating his breakfast. He is answering questions appropriately but appears older and disheveled.He has missing teeth with poor dentition. Dry mucous membranes. Pupils are round and reactive. Extraocular muscles are intact. No cervical lymphadenopathy or thyromegaly. Tongue is midline. Face is symmetric. LUNGS: Clear to auscultation. Air entry is equal bilaterally. No wheezing or rales. HEART: S1, S2, sinus rhythm. No carotid bruits noted. There is a 2/6 systolic ejection murmur in the aortic area. ABDOMEN: Soft, nontender, nondistended. Positive bowel sounds times four quadrants. No rebound, guarding, or hepatosplenomegaly. EXTREMITIES: The patient has 2+ pitting edema to the sacrum. He has chronic venous stasis changes in bilateral lower extremities. Right foot about midway up the king from the ankle has significant erythema. The foot has serous drainage. Dorsalis pedis and posterior tibialis are diminished but noted. LABORATORY DATA, IMAGING STUDIES, MICROBIOLOGY: REVIEWED, PLS SEE BELOW ASSESSMENT AND PLAN: A 78-year-old male with a history of schizophrenia with history of bilateral lower extremity cellulitis who presents to the emergency room with increasing pain, swelling and redness of the right lower extremity with serous drainage. ACUTE ISSUES Right>>left Chronic venous insufficiency-negative dvt on ultrasound. admitted for presumed right LE cellulitis and given ceftaroline. MRI right foot : no osteo. Per Dr. Topete. Surgical consult for wound care no need to continue on antibiotics. wound care recommendations implemented. pt is stable for dc. Unna boot if possible. Physical therapy evaluation and treatment. Schizophrenia. Continue home medication. Dyslipidemia, on chronic pravastatin. Hypertensive heart disease, on lisinopril and torsemide. Hypothyroidism, on chronic levothyroxine. B12 deficiency. Resumed B12 supplements. Deep vein thrombosis (DVT) prophylaxis with renally dosed Lovenox. VS, I&O, 24H, Fishbone Vital Signs/I&O Vital Signs Date Time Temp Pulse Resp B/P (MAP) Pulse Ox O2 Delivery O2 Flow Rate FiO2 10/08/18 06:00 97.8 86 17 131/71 (91) 99 10/06/18 18:24 Room Air I&O- Last 24 Hours up to 6 AM 10/08/18 05:59 Intake Total 2610 ml Output Total 876 ml Balance 1734 ml Laboratory Data Microbiology Microbiology 10/06/18 Blood Culture - Preliminary, Resulted No growth after 24 hours . All specim... 10/06/18 Blood Culture - Preliminary, Resulted No Growth after 48 hours. All Specime... CHRISTEL GONZALEZ MD Oct 08, 2018 13:37
[2018-10-08 14:00] VITALS: BP 127/72
--- NOTE | 2018-10-08 16:17 | REP ---
Unilateral right lower extremity arterial Doppler ultrasound: History: Wound in the right great toe. Findings: Ankle brachial index is normal at 1.0 on the right. This is likely overestimated due to calcified vessels on the right. Significant plaquing is seen throughout the right lower extremity arterial tree. Monophasic flow was observed at and distal to the proximal superficial femoral arteries level. Multiple stenoses are present in the proximal profunda, proximal SFA, distal SFA and proximal posterior tibial artery trunk. Velocity chart right lower extremity arteries: Right CF A 89 cm/S, profunda 210, proximal SFA 78/292 Mid SFA 92 Distal SFA 98/187 Popliteal 162 Proximal AT A 45 Tibioperoneal trunk 155 Proximal MOTOR POLARIZER 71 Distal MOTOR POLARIZER 104 Distal AT A 19 Electronically Signed by Padilla Valle MD 10/08/2018 04:08 P
[2018-10-08] MEDS: PRAVASTATIN 20 MG TAB PO SCH (20:49)
[2018-10-08] MEDS: LISINOPRIL 20 MG TAB PO SCH (20:50)
[2018-10-08] MEDS: TAMSULOSIN 0.4 MG CAP PO SCH (20:50)
[2018-10-08 22:00] VITALS: BP 121/74
--- NOTE | 2018-10-09 01:35 | IPNPDOC ---
Text Note Date of Service The patient was seen on 10/09/18. NOTE Patient pulled puga catheter out around 0100, nursing staff was able to control the bleeding and after a few minutes of pressure it stopped on its own. Did not feel putting new puga in was amin as patient would be likely to pull it out again. Patient is otherwise stable. I put in a nursing order to bladder scan patient at 0130 and at 0600 and straight cath if >300 cc of urine present. Would advise urology consult in AM. VS,Fishbone, I+O VS, Fishbone, I+O Vital Signs Date Time Temp Pulse Resp B/P (MAP) Pulse Ox O2 Delivery O2 Flow Rate FiO2 10/08/18 22:00 98.1 83 17 121/74 (90) 97 10/06/18 18:24 Room Air I&O- Last 24 Hours up to 6 AM 10/09/18 06:00 Intake Total 2450 ml Output Total 2500 ml Balance -50 ml GME ATTESTATION GME ATTESTATION My faculty preceptor for this patient encounter was physically present during the encounter and was fully available. All aspects of the patient interview, examination, medical decision making process, and medical care plan development were reviewed and approved by the faculty preceptor. The faculty preceptor is aware and concurs with the plan as stated in the body of this note and will attest to such by his/her cosignature. KUSHAL LIGHT DO Oct 09, 2018 01:35
[2018-10-09] MEDS ORDERED: NS 1,000 ML IV ONE (04:15)
[2018-10-09 04:30] VITALS: BP 120/75
--- NOTE | 2018-10-09 04:31 | IPNPDOC ---
Text Note Date of Service The patient was seen on 10/09/18. NOTE Greer called at approximately 0400. Patient was in bathroom trying to void assisted by nurse and urinated bright red blood into toilet bowl, shortly after he became pale, weak and was less responsive so the nurse called out for help. On arriving to bedside, patients initial blood pressures were low so a liter bolus of NS was ordered. Monitor showed sinus tachycardia which eventually went back to NSR. He slowly recovered as did his vitals and he became more responsive, during his recovery time he did have a small amount of blood coming out of his urethral meatus and their was bright red blood with small clots in the toilet bowl. We also ordered a CBC, BMP, troponins, and type/cross for possible anemia. I spoke with Dr. Soares who advised that unless the patient's hgb dropped multiple points or the patient was in retention their was nothing to do acutely and the prostate/urethra would likely heal on its own with time. He recommended that in the future if their was a need for a catheter that a dummy catheter co uld be used or a 1:1 sitter. He also recommended doing post void residuals and as long as they were less than 150 he would not be concerned for signs of retention. Overall he recommended allowing the patient to try voiding independently. Presently he is not having any bleeding and his vitals are normal with the fluid bolus running. VS,Fishbone, I+O VS, Fishbone, I+O Vital Signs Date Time Temp Pulse Resp B/P (MAP) Pulse Ox O2 Delivery O2 Flow Rate FiO2 10/08/18 22:00 98.1 83 17 121/74 (90) 97 10/06/18 18:24 Room Air I&O- Last 24 Hours up to 6 AM 10/09/18 06:00 Intake Total 2450 ml Output Total 2500 ml Balance -50 ml GME ATTESTATION GME ATTESTATION My faculty preceptor for this patient encounter was physically present during the encounter and was fully available. All aspects of the patient interview, examination, medical decision making process, and medical care plan development were reviewed and approved by the faculty preceptor. The faculty preceptor is aware and concurs with the plan as stated in the body of this note and will attest to such by his/her cosignature. ATTENDING NOTE I saw and evaluated the patient. I agree with the finding and the plan of care as documented in the resident's note. KUSHAL LIGHT DO Oct 09, 2018 04:31 MICHELLE VIDAL MD Oct 09, 2018 23:25
[2018-10-09 05:02] LABS: HEMATOCRIT 34.9 % (42.0-52.0); HEMOGLOBIN 11.7 g/dl (13.5-17.5); MEAN CORPUSCULAR HEMOGLOBIN 28.8 pg (27.0-33.0); MEAN CORPUSCULAR HGB CONC 33.5 g/dl (32.0-36.5); PLATELET COUNT, AUTOMATED 213 10^3/uL (150-450); RED BLOOD COUNT 4.06 10^6/uL (4.30-6.10); WHITE BLOOD COUNT 9.3 10^3/uL (4.0-10.0)
[2018-10-09 05:43] LABS: BLOOD UREA NITROGEN 9 MG/DL (7-18); CALCIUM LEVEL 7.6 MG/DL (8.8-10.2); CARBON DIOXIDE LEVEL 31 MEQ/L (21-32); CHLORIDE LEVEL 100 MEQ/L (98-107); CK-MB VALUE MASS 2.7 NG/ML (<3.6); CPK CREATINE PHOSPHOKINASE 116 U/L (39-308); GLOMERULAR FILTRATION RATE > 60.0 (>42); GLUCOSE, FASTING 152 MG/DL (70-100); MB/CK RELATIVE INDEX 2.33 (< OR =4); SODIUM LEVEL 136 MEQ/L (136-145); TROPONIN I < 0.02 NG/ML (< 0.10)
[2018-10-09] MEDS: LEVOTHYROXINE 100MCG TABLET (0.1MG) PO SCH (05:46)
[2018-10-09 06:00] VITALS: BP 130/78
[2018-10-09 07:48] LABS: BASO % 0.2 % (0.0-1.0); EOS # 0.1 10^3/uL (0.0-0.50); EOS % 0.7 % (0.0-3.0); HEMATOCRIT 35.5 % (42.0-52.0); LYMPH % 8.5 % (24.0-44.0); MEAN CORPUSCULAR HGB CONC 33.8 g/dl (32.0-36.5); MEAN CORPUSCULAR VOLUME 85.7 fl (80.0-96.0); MONO % 8.3 % (0.0-5.0); NEUTROPHILS # 9.9 10^3/uL (1.8-7.7); NEUTROPHILS % 81.2 % (36.0-66.0); PLATELET COUNT, AUTOMATED 213 10^3/uL (150-450); RED BLOOD COUNT 4.14 10^6/uL (4.30-6.10); WHITE BLOOD COUNT 12.2 10^3/uL (4.0-10.0)
[2018-10-09] MEDS: SODIUM CHLORIDE 1 GM TAB PO SCH ×2 (08:03→20:10)
[2018-10-09] MEDS: FAMOTIDINE 20 MG TAB PO SCH (08:03)
[2018-10-09] MEDS: VANICREAM MOISTURIZING SKIN CREAM 113GM TUBE TOP SCH (08:04)
[2018-10-09] MEDS: POTASSIUM CHLORIDE 10 MEQ SR TABLET PO SCH (08:04)
[2018-10-09] MEDS: TORSEMIDE 20 MG TAB PO SCH (08:04)
[2018-10-09] MEDS: DIAPER RELIEF PASTE (DESITIN) 60GM TOP SCH (08:04)
[2018-10-09] MEDS: ENOXAPARIN 30 MG/0.3 ML SYR (J1650) SC SCH ×2 (08:04→08:16)
[2018-10-09] MEDS: BENZTROPINE 2 MG TAB PO SCH ×2 (08:04→20:11)
[2018-10-09] MEDS: FERROUS SULFATE 325MG TAB PO SCH (08:04)
[2018-10-09 10:08] VITALS: BP 156/82
--- NOTE | 2018-10-09 10:52 | REP ---
CT of the head without contrast Indication: Seizure-like activity. Comparison: CT head of 05/27/2018. Technique: Axial CT of the head was performed without contrast. Findings: There is no visible soft tissue swelling or calvarial fracture. There is no evidence of acute intracranial hemorrhage or extra-axial fluid collection. There is chronic lacunar infarct within the left basal ganglia. There are scattered hypodensities within the periventricular subcortical white matter which is nonspecific but suggestive of microvascular ischemic disease, similar to prior. Note is made of intracranial vascular calcification. Similar volume loss. There is no mass effect or midline shift. The basal cisterns are patent. There is no hydrocephalus. The visualized paranasal sinuses and mastoid air cells are clear. Impression: No acute intracranial abnormality. Chronic left basal ganglia lacunar infarct. Similar white matter disease. Electronically Signed by Liz Pool MD 10/09/2018 10:44 A
[2018-10-09 11:00] LABS: ERYTHROCYTE SEDIMENTATION RATE 27 mm/hr (0-20)
[2018-10-09 11:10] VITALS: BP 137/69
[2018-10-09 11:35] LABS: HEPATITIS B SURFACE ANTIGEN NEGATIVE (NEGATIVE); HIV SCREEN CENTAUR SOURCE NEGATIVE (NEGATIVE)
[2018-10-09 11:57] LABS: HEMATOCRIT 34.6 % (42.0-52.0); HEMOGLOBIN 11.4 g/dl (13.5-17.5)
[2018-10-09 12:13] LABS: CREATININE FOR GFR 0.85 MG/DL (0.70-1.30); GLOMERULAR FILTRATION RATE > 60.0 (>42)
--- NOTE | 2018-10-09 13:25 | SMCUROLCON ---
Urology Consultation General Date of Consultation 10/09/18 Reason For Consultation This patient is seen for Cellulitis Of Rt Foot. History of Present Illness The patient is a 78 y/o M w/ a PMH significant for chronic venous insufficiency, schizophreniz, HL, hypothyroidism, and BPH, admitted to the hospital a few days ago for cellulitis of his right foot. After admission he was found to be in urinary retention and an indwelling catheter was placed. During a moment of confusion yesterday evening, the patient pulled his catheter out w/ the balloon still inflated. Since then he has had blood dripping from his urethral meatus. We have been consulted to evaluate. The patient notes that prior to admission he did not have any difficulty voiding. He was not on any medications for his prostate. Since pulling his catheter out, he has voided but PVRs have been as high as 600cc. Nursing has straight catheterized him to empty residuals. Per nursing his straight catheterized urine has been clear. The patient does not note having any pain w/ urination at this time. Past Medical History Medical History see HPI Surgical Hstory ankle surgery, hernia repair Medications Current Medications Current Medications Medications (Trade) Dose Ordered Sig/Vic Route PRN Reason Start Time Stop Time Status Last Admin Dose Admin Acetaminophen (Tylenol Tab) 650 mg Q4H PRN PO PAIN OR FEVER 10/06/18 16:30 Benztropine Mesylate (Cogentin) 2 mg BID PO 10/06/18 21:00 10/09/18 08:04 Ceftaroline Fosamil 600 mg/ Dextrose 50 ml @ 50 mls/hr Q12H IV 10/06/18 21:00 10/08/18 12:36 DC 10/08/18 09:26 Cod Liver Oil/ Zinc Oxide (Desitin) to b/l legs DAILY TOP 10/07/18 09:00 10/08/18 09:28 Emollient Cream (Vanicream) dry areas on b/l le. DAILY TOP 10/07/18 09:00 10/08/18 09:27 Enoxaparin Sodium (Lovenox) 30 mg DAILY SC 10/07/18 09:00 10/09/18 08:20 DC 10/08/18 09:25 Famotidine (Pepcid) 40 mg DAILY PO 10/07/18 09:00 10/09/18 08:03 Ferrous Sulfate (Ferrous Sulfate) 325 mg DAILY PO 10/07/18 09:00 10/09/18 08:04 Fluphenazine HCl (Prolixin) 20 mg QPM PO 10/06/18 21:00 10/08/18 20:50 Home Med (Med Rec Complete!) ASDIRECTED XX 10/06/18 14:15 10/06/18 14:15 DC Levothyroxine Sodium (Synthroid) 100 mcg DAILY@0600 PO 10/07/18 06:00 10/09/18 05:46 Lisinopril (Prinivil) 20 mg QPM PO 10/06/18 21:00 10/08/18 20:50 Miscellaneous (Unresolved Clarification Entry) SEE LABEL COMMENTS DAILY XX 10/06/18 09:00 10/06/18 18:50 DC Potassium Chloride (Micro-K Extencaps) 10 meq DAILY PO 10/07/18 09:00 10/09/18 08:04 Pravastatin Sodium (Pravachol) 40 mg QPM PO 10/06/18 21:00 10/08/18 20:49 Sodium Chloride (Sodium Chloride) 1 gm BID PO 10/06/18 21:00 10/09/18 08:03 Tamsulosin HCl (Flomax) 0.4 mg QHS PO 10/08/18 21:00 10/08/18 20:50 Torsemide (Demadex) 20 mg QAM PO 10/07/18 09:00 10/09/18 10:04 DC 10/09/18 08:04 Allergies Allergies: Coded Allergies: vancomycin (Verified Allergy, Mild, rash, 09/13/18) Review of Systems Constitutional: Denies: Fever, Chills Pulmonary: Denies: Dyspnea, Cough Cardiovascular: Denies Chest Pain, Denies Palpitations Genitourinary: Reports: Hematuria, Retention Psych: Reports: Mood Normal Physical Examination General Exam: No Acute Distress Chest Exam: Normal air movement Heart Exam: Rate Normal, Regular Rhythm Male Exam circumcised phallus w/ blood at meatus - no active bleeding; b/l descended testicles w/o lesions Neuro Exam: Normal Speech Psych Exam: Mood NL Vital Signs/I&O Vital Signs Date Time Temp Pulse Resp B/P (MAP) Pulse Ox O2 Delivery O2 Flow Rate FiO2 10/09/18 11:10 97.6 96 18 137/69 (91) 97 10/06/18 18:24 Room Air I&O- Last 24 Hours up to 6 AM 10/09/18 06:00 Intake Total 3750 ml Output Total 3100 ml Balance 650 ml Laboratory Data 24H Labs Laboratory Tests 2 10/09/18 04:01: Bedside Glucose (Misc Panel) 127H 10/09/18 04:55: Nucleated Red Blood Cells % (auto) 0.0, Erythrocyte Sedimentation Rate 27H, Anion Gap 5L, Glomerular Filtration Rate > 60.0, Blood Urea Nitrogen 9, Creatinine 0.80, Sodium Level 136, Potassium Level 4.0, Chloride Level 100, Carbon Dioxide Level 31, Calcium Level 7.6L, Total Creatine Kinase 116, Creatine Kinase MB 2.7, Creatine Kinase MB Relative Index 2.33, Troponin I < 0.02 10/09/18 07:35: Nucleated Red Blood Cells % (auto) 0.0, Immature Granulocyte % (Auto) 1.1, White Blood Count 12.2H, Red Blood Count 4.14L, Hemoglobin 12.0L, Hematocrit 35.5L, Mean Corpuscular Volume 85.7, Mean Corpuscular Hemoglobin 29.0, Mean Corpuscular Hemoglobin Concent 33.8, Red Cell Distribution Width 15.0H, Platelet Count 213, Neutrophils (%) (Auto) 81.2H, Lymphocytes (%) (Auto) 8.5L, Monocytes (%) (Auto) 8.3H, Eosinophils (%) (Auto) 0.7, Basophils (%) (Auto) 0.2, Neutrophils # (Auto) 9.9H, Lymphocytes # (Auto) 1.0L, Monocytes # (Auto) 1.0H, Eosinophils # (Auto) 0.1, Basophils # (Auto) 0.0 10/09/18 09:27: Prolactin 46.0H 10/09/18 09:32: Hepatitis B Surface Antigen NEGATIVE, Hepatitis C Antibody Index 0.0, HIV Antigen/Antibody Combo Qual NEGATIVE 10/09/18 11:38: Glomerular Filtration Rate > 60.0, Ammonia 21 10/09/18 11:55: Urine Color YELLOW, Urine Appearance HAZY, Urine pH 8.0, Urine Specific [place] 1.006, Urine Protein NEGATIVE, Urine Glucose (UA) NEGATIVE, Urine Ketones NEGATIVE, Urine Blood 3+H, Urine Nitrite NEGATIVE, Urine Bilirubin NEGATIVE, Urine Urobilinogen 0.2, Urine Leukocyte Esterase NEGATIVE, Urine WBC (Auto) 12H, Urine RBC (Auto) TNTCH, Urine Hyaline Casts (Auto) 0, Urine Bacteria (Auto) NEGATIVE, Urine Squamous Epithelial Cells 0, Urine Mucus (Auto) SMALL, Urine Sperm (Auto) CBC/BMP Laboratory Tests 10/09/18 04:55 Red Blood Count 4.06 L, Mean Corpuscular Volume 86.0, Mean Corpuscular Hemoglobin 28.8, Mean Corpuscular Hemoglobin Concent 33.5, Red Cell Distribution Width 15.0 H, Calcium Level 7.6 L, Total Creatine Kinase 116 10/09/18 07:35 Red Blood Count 4.14 L, Mean Corpuscular Volume 85.7, Mean Corpuscular He moglobin 29.0, Mean Corpuscular Hemoglobin Concent 33.8, Red Cell Distribution Width 15.0 H, Neutrophils (%) (Auto) 81.2 H, Lymphocytes (%) (Auto) 8.5 L, Monocytes (%) (Auto) 8.3 H, Eosinophils (%) (Auto) 0.7, Basophils (%) (Auto) 0.2, Neutrophils # (Auto) 9.9 H, Lymphocytes # (Auto) 1.0 L, Monocytes # (Auto) 1.0 H, Eosinophils # (Auto) 0.1, Basophils # (Auto) 0.0 10/09/18 11:38 Microbiology Microbiology 10/06/18 Blood Culture - Preliminary, Resulted No Growth after 48 hours. All Specime... 10/06/18 Blood Culture - Preliminary, Resulted No Growth after 48 hours. All Specime... 10/09/18 Urine Culture, Received Pending Assessment This is a 78 y/o M admitted for cellulitis of his R foot, now having some prostatic/urethral bleeding due to traumatic removal of his catheter. He is not having significant bleeding. His is stable. His vitals are stable. Ideally, we would place a new catheter in and leave in for a week or two to help tamponade bleeding and allow the urethra to heal. Per nursing, there is high concern that he would traumatically remove another catheter if placed. I therefore recommend having him void and straight catheterizing him as needed if retaining > 150cc. Nothing special needs to be done for the urethral bleeding as it usually stops on its own (appears to have already done so for this patient). Plan - nothing needed for urethral bleeding as it has already stopped - no need to check serial H&H - continue flomax - have patient void and straight catheterize as needed if PVR is > 150cc - if patient continues to have incomplete bladder emptying when he is ready for discharge, recommend continuing w/ above plan and have him f/u in our office as an outpatient to help manage his urinary retention ANNA VAZ MD Oct 09, 2018 13:25
[2018-10-09 13:28] LABS: C REACTIVE PROTEIN QUANTITATIV 0.48 MG/DL (0.00-0.30)
[2018-10-09 16:00] VITALS: BP 133/63
--- NOTE | 2018-10-09 18:17 | IPNPDOC ---
Date Seen The patient was seen on 10/09/18. Progress Note SUBJECTIVE: Due to urine retention >300ml PVR, pt was cath x 2 yesterday, and puga was placed overnight. Early this morning, pt awakened and pulled his puga. "I took that ashley out," with subsequent bleeding due to lovenox for dvt prophylaxis. hgb is stable at 12. was found to be shaking while lying on his right side with "tremors". he was subsequently transferred to ICU for seizure precautions. CT head, EEG, prolactin ordered. Denies any postictal confusion, has baseline tremors, denies sob, lightheadedness, dizziness. (+) pain, and persistent bright red hematuria soaking two diapers. pt does NOT want blood transfusion. OBJECTIVE: PHYSICAL EXAMINATION: VITAL SIGNS:PLS SEE BELOW GENERAL: supine in bed with bloody diaper and blood splatter on his IQRA bandage on the LLE, being changed by RN. no pallor. disheveled. answering questions appropriately without slurring. no postictal confusion. hand tremors LUNGS: Clear to auscultation. Air entry is equal bilaterally. No wheezing or rales. HEART: S1, S2, sinus rhythm. No carotid bruits noted. There is a 2/6 systolic ejection murmur in the aortic area. ABDOMEN: Soft, nontender, nondistended. Positive bowel sounds times four quadrants. No rebound, guarding, or hepatosplenomegaly. bloody diaper. puga discontinued some maroon clots at the tip of the penis EXTREMITIES: The patient has 2+ pitting edema to the sacrum. He has chronic venous stasis changes in bilateral lower extremities. Right foot about midway up the king from the ankle has significant erythema. The foot has serous drainage. Dorsalis pedis and posterior tibialis are diminished but noted. LABORATORY DATA, IMAGING STUDIES, MICROBIOLOGY: REVIEWED, PLS SEE BELOW ASSESSMENT AND PLAN: A 78-year-old male with a history of schizophrenia with history of bilateral lower extremity cellulitis who presents to the emergency room with increasing pain, swelling and redness of the right lower extremity with serous drainage. ACUTE ISSUES acute blood loss due to gross hematuria from pt pulling puga catheter while on lovenox for dvt prophylaxis no hemodynamic compromise discontinued lovenox temporarily pt has iqra bandages for venous insuffiency b/l LE Seizure like activity/Tremors no postictal confusion unlikely to be a neural event ct head eeg and prolactin ordered seizure precautions off tm for tests transferred to telemetry unit Gross hematuria due to traumatic puga removal by the patient urology Dr. Soares consulted-no surgical intervention intermittent cath for urine retention Urine retention normal creatinine PVR>300 x 2 occasions, requiring intermittent cath 10/08/18 and puga placement which the pt pulled this morning on flomax s/p traumatic puga removal by the patient urology Dr. Soares consulted-no surgical intervention intermittent cath for urine retention may hinder discharge plans to assisted living, but pt is cooperative and willing to self-cath. RN to educate and supervice pt's self-catheterization Right>>left Chronic venous insufficiency-negative dvt on ultrasound. admitted for presumed right LE cellulitis and given ceftaroline. MRI right foot : no osteo. Per Dr. Topete. Surgical consult for wound care no need to continue on antibiotics. wound care recommendations implemented. pt is stable for dc. Unna boot if possible. Physical therapy evaluation and treatment. Schizophrenia. Continue home medication. Dyslipidemia, on chronic pravastatin. Hypertensive heart disease, on lisinopril and torsemide. Hypothyroidism, on chronic levothyroxine. B12 deficiency. Resumed B12 supplements. Deep vein thrombosis (DVT) prophylaxis with renally dosed Lovenox.: discontinued lovenox due to acute blood loss and gross hematuria. compression stockings. disposition: discharge postponed pending ?seizure workup and self- catheterization education. VS, I&O, 24H, Fcobone Vital Signs/I&O Vital Signs Date Time Temp Pulse Resp B/P (MAP) Pulse Ox O2 Delivery O2 Flow Rate FiO2 10/09/18 11:10 97.6 96 18 137/69 (91) 97 10/06/18 18:24 Room Air I&O- Last 24 Hours up to 6 AM 10/09/18 06:00 Intake Total 3750 ml Output Total 3100 ml Balance 650 ml Laboratory Data 24H LABS Laboratory Tests 2 10/09/18 04:01: Bedside Glucose (Misc Panel) 127H 10/09/18 04:55: Nucleated Red Blood Cells % (auto) 0.0, Erythrocyte Sedimentation Rate 27H, Anion Gap 5L, Glomerular Filtration Rate > 60.0, Blood Urea Nitrogen 9, Creatinine 0.80, Sodium Level 136, Potassium Level 4.0, Chloride Level 100, Carbon Dioxide Level 31, Calcium Level 7.6L, Total Creatine Kinase 116, Creatine Kinase MB 2.7, Creatine Kinase MB Relative Index 2.33, Troponin I < 0.02, C- Reactive Protein, Quantitative 0.48H 10/09/18 07:35: Nucleated Red Blood Cells % (auto) 0.0, Immature Granulocyte % (Auto) 1.1, White Blood Count 12.2H, Red Blood Count 4.14L, Hemoglobin 12.0L, Hematocrit 35.5L, Mean Corpuscular Volume 85.7, Mean Corpuscular Hemoglobin 29.0, Mean Corpuscular Hemoglobin Concent 33.8, Red Cell Distribution Width 15.0H, Platelet Count 213, Neutrophils (%) (Auto) 81.2H, Lymphocytes (%) (Auto) 8.5L, Monocytes (%) (Auto) 8.3H, Eosinophils (%) (Auto) 0.7, Basophils (%) (Auto) 0.2, Neutrophils # (Auto) 9.9H, Lymphocytes # (Auto) 1.0L, Monocytes # (Auto) 1.0H, Eosinophils # (Auto) 0.1, Basophils # (Auto) 0.0 10/09/18 09:27: Prolactin 46.0H 10/09/18 09:32: Hepatitis B Surface Antigen NEGATIVE, Hepatitis C Antibody Index 0.0, HIV Antigen/Antibody Combo Qual NEGATIVE 10/09/18 11:38: Glomerular Filtration Rate > 60.0, Ammonia 21 10/09/18 11:55: Urine Color YELLOW, Urine Appearance HAZY, Urine pH 8.0, Urine Specific [place] 1.006, Urine Protein NEGATIVE, Urine Glucose (UA) NEGATIVE, Urine Ketones NEGATIVE, Urine Blood 3+H, Urine Nitrite NEGATIVE, Urine Bilirubin NEGATIVE, Urine Urobilinogen 0.2, Urine Leukocyte Esterase NEGATIVE, Urine WBC (Auto) 12H, Urine RBC (Auto) TNTCH, Urine Hyaline Casts (Auto) 0, Urine Bacteria (Auto) NEGATIVE, Urine Squamous Epithelial Cells 0, Urine Mucus (Auto) SMALL, Urine Sperm (Auto) CBC/BMP Laboratory Tests 10/09/18 04:55 Red Blood Count 4.06 L, Mean Corpuscular Volume 86.0, Mean Corpuscular Hemoglobin 28.8, Mean Corpuscular Hemoglobin Concent 33.5, Red Cell Distribution Width 15.0 H, Calcium Level 7.6 L, Total Creatine Kinase 116 10/09/18 07:35 Red Blood Count 4.14 L, Mean Corpuscular Volume 85.7, Mean Corpuscular Hemoglobin 29.0, Mean Corpuscular Hemoglobin Concent 33.8, Red Cell Distribution Width 15.0 H, Neutrophils (%) (Auto) 81.2 H, Lymphocytes (%) (Auto) 8.5 L, Monocytes (%) (Auto) 8.3 H, Eosinophils (%) (Auto) 0.7, Basophils (%) (Auto) 0.2, Neutrophils # (Auto) 9.9 H, Lymphocytes # (Auto) 1.0 L, Monocytes # (Auto) 1.0 H, Eosinophils # (Auto) 0.1, Basophils # (Auto) 0.0 10/09/18 11:38 Microbiology Microbiology 10/06/18 Blood Culture - Preliminary, Resulted No Growth after 72 hours. All specime... 10/06/18 Blood Culture - Preliminary, Resulted No Growth after 72 hours. All specime... 10/09/18 Urine Culture, Received Pending CHRISTEL GONZALEZ MD Oct 09, 2018 15:36
[2018-10-09 20:00] VITALS: BP 129/62
[2018-10-09] MEDS: TAMSULOSIN 0.4 MG CAP PO SCH (20:10)
[2018-10-09] MEDS: LISINOPRIL 20 MG TAB PO SCH (20:10)
[2018-10-09] MEDS: PRAVASTATIN 20 MG TAB PO SCH (20:10)
--- NOTE | 2018-10-09 20:56 | CR ---
DATE OF CONSULTATION: 10/09/2018 CONSULTATION REQUESTED BY: Dr. eKli Baker regarding erythema of the right foot. HISTORY OF PRESENT ILLNESS: This is a 63-year-old male who is a resident at [facility] and was found to have diffuse erythema involving his right foot associated with small punctate wounds within the erythematous area.. The patient has moderate bilateral lower extremity edema along with venous stasis dermatitis involving the pretibial areas bilaterally but more pronounced on the right lower extremity. The patient is afebrile. Has a white count of 7.8 and a hemoglobin of 11.1. He has a sedimentation rate of 30 and a normal C-reactive protein. The erythema involves the dorsal aspect of his right foot. It is well demarcated without extension proximally and no there is no evidence of lymphangitis. The area is nontender to palpation. CLINICAL IMPRESSION: This clinically is not consistent with cellulitis and/or deep tissue injury or abscess The erythema appears to be secondary to local skin irritation from wound drainage ( from the punctate areas on the dorsal aspect of the foot). Treatment would include compression, elevation of the right lower extremity along with periwound skin protection. An absorptive foam dressing should be utilized. An MRI has been previously ordered, which would assist with identifying any deep tissue pathology. Cellulitis should present with significant localized tenderness and warmth, which was not present, elevated white count, and fever, all of which are absent. If the wound shows improvement with local dressing changes, the patient can be discharged with compression stockings, and we would be glad to see him in our outpatient wound care clinic. An arterial ultrasound should be included as part of his workup, although arterial disease does not appear to coincide with his clinical presentation. NITESH
[2018-10-10] VITALS: BP 121/57
[2018-10-10 04:00] VITALS: BP 117/57
[2018-10-10 05:05] LABS: HEMATOCRIT 26.7 % (42.0-52.0); MEAN CORPUSCULAR HEMOGLOBIN 29.1 pg (27.0-33.0); MEAN CORPUSCULAR HGB CONC 34.5 g/dl (32.0-36.5); MEAN CORPUSCULAR VOLUME 84.5 fl (80.0-96.0); PLATELET COUNT, AUTOMATED 188 10^3/uL (150-450); RED BLOOD COUNT 3.16 10^6/uL (4.30-6.10); WHITE BLOOD COUNT 7.3 10^3/uL (4.0-10.0)
[2018-10-10 05:06] LABS: HEMOGLOBIN 9.2 g/dl (13.5-17.5)
[2018-10-10] MEDS: LEVOTHYROXINE 100MCG TABLET (0.1MG) PO SCH (05:10)
[2018-10-10 05:25] LABS: BLOOD UREA NITROGEN 6 MG/DL (7-18); CALCIUM LEVEL 7.5 MG/DL (8.8-10.2); CARBON DIOXIDE LEVEL 31 MEQ/L (21-32); CHLORIDE LEVEL 98 MEQ/L (98-107); GLOMERULAR FILTRATION RATE > 60.0 (>42); GLUCOSE, FASTING 123 MG/DL (70-100); POTASSIUM SERUM 3.4 MEQ/L (3.5-5.1); SODIUM LEVEL 134 MEQ/L (136-145)
[2018-10-10 08:00] VITALS: BP 129/60
[2018-10-10] MEDS ORDERED: POTASSIUM CHLORIDE 10 MEQ SR TABLET PO ONE (08:00)
[2018-10-10] MEDS: SODIUM CHLORIDE 1 GM TAB PO SCH ×2 (08:05→20:20)
[2018-10-10] MEDS: FERROUS SULFATE 325MG TAB PO SCH (08:05)
[2018-10-10] MEDS: TORSEMIDE 20 MG TAB PO SCH (08:05)
[2018-10-10] MEDS: FAMOTIDINE 20 MG TAB PO SCH (08:05)
[2018-10-10] MEDS: BENZTROPINE 2 MG TAB PO SCH ×2 (08:05→20:19)
[2018-10-10] MEDS: POTASSIUM CHLORIDE 10 MEQ SR TABLET PO SCH (08:06)
[2018-10-10 11:11] VITALS: BP 121/67
[2018-10-10] MEDS: DIAPER RELIEF PASTE (DESITIN) 60GM TOP SCH (11:23)
[2018-10-10] MEDS: VANICREAM MOISTURIZING SKIN CREAM 113GM TUBE TOP SCH (11:24)
--- NOTE | 2018-10-10 12:21 | IPNPDOC ---
Subjective Date Seen The patient was seen on 10/10/18. Subjective Chief Complaint/HPI Patient state he has no complaints today. Patient seen getting off bedside commode with nursing assistance, urine appears yellow, non-blood at this time. Patient voices no concerns of difficulty voiding. Nursing staff notes that he is still needing intermittent straight caths. Constitutional: Denies: Chills, Fever Eyes: Denies: Pain ENT: Denies: Head Aches Skin: Denies: Rash, Lesions Pulmonary: Denies: Dyspnea, Cough Cardiovascular: Denies: Chest Pain, Palpitations, Orthopnea Gastrointestinal: Denies: Nausea, Vomiting, Abdominal Pain Genitourinary: Reports: Retention; Denies: Dysuria, Hematuria Hematologic: Denies: Bruising Endocrine: Denies: Polyuria Musculoskeletal: Denies: Neck Pain, Shoulder Pain Neurological: Denies: Confusion Psych: Reports: Mood Normal Objective Physical Examination General Exam: Positive: Alert, Cooperative, No Acute Distress Eye Exam: Positive: EOMI; Negative: Sclera icteric ENT Exam: Positive: Atraumatic Neck Exam: Positive: Supple; Negative: JVD, thyromegaly Chest Exam: Positive: Clear to auscultation, Normal air movement; Negative: Rales, Rhonchi, Wheezing Heart Exam: Positive: Rate Normal, Regular Rhythm, Normal S1, Normal S2, Murmurs Telemetry: Positive: No significant arrhythmia Abdomen Exam: Positive: Normal bowel sounds, Soft; Negative: Tenderness, Mass Extremity Exam: Negative: Clubbing, Cyanosis Skin Exam: Positive: Nl turgor and temperature Neuro Exam: Positive: Normal Speech, Sensation Intact, Cranial Nerves 3-12 NL Psych Exam: Positive: Mental status NL, Mood NL Other physical findings Cardiac: systolic murmur 2/6 loudest at right sternal boarder, faintly appreciated in left upper sternal boarder as well. Ext: b/l LE bandages in place, clean/dry/intact. Skin notable for chronic venous changes in the b/l LE. Pulses are palpable. B/L upper extremities notable for resting tremor which disappears with intention/purposeful movement. No loss of sensation. Assessment /Plan Assessment A 78-year-old male with a history of schizophrenia with history of bilateral lower extremity cellulitis who presents to the emergency room with increasing pain, swelling and redness of the right lower extremity with serous drainage, likely due to stasis dermatitis vs venous insufficiency. Complicated by traumatic puga removal by patient with acute urinary retention. Plan/VTE VTE Prophylaxis Ordered?: No VTE Exclusion Pharmacological: Bleeding Risk Plan/Urinary Catheter Urinary Catheter: Straight Cath Plan ACUTE ISSUES Acute blood loss due to gross hematuria from traumatic puga removal -hemodynamically stable. Hgb today noted to be 9.2 decreased from yesterday, no acute need for transfusion and patient refusing any transfusion at this time. Will monitor off lovenox, Monitor CBC. Acute Urinary retention from traumatic puga removal -Urology, Dr. Soares, consulted, no acute interventions needed. Continue Flomax. -Check PVR and bladder scan q6. -Continue intermittent straight caths for PVR >150. Nursing staff to attempt to teach patient straight cath however may be difficult due to baseline tremors, I am hopeful patient may not require intermittent straight caths for long as he is improving. -Hematuria is improving. -Renal function is stable on todays labwork. Mild hypokalemia: given 40meq KCL PO. Tremors/?seizure -CTH without any acute abnormalities but does note a chronic left basal ganglia infarct. Patient states she has been having tremors for some time. Tremor occurs at rest and disappears with intention, suspicious for underlying parkinsonism. Patient is on Cogentin for Prolixin side effects, tremor can be attributed to this. Can likely follow up as outpatient for continued work up if needed. -No need for EEG or prolactin at this time, does not appear to have been ordered, will monitor. -Can transfer back to medical floors today. Right > Left chronic venous insufficiency -No DVT, No Osteo per MRI, unlikely cellulitis -General Surgery, Dr. Topete consulted, agrees it is unlikely infectious. Continue compression/IQRA bandages, elevation and skin protection. Patient/staff note improvement. -f/u PT Schizophrenia. Continue home medication. Dyslipidemia, on chronic pravastatin. Hypertensive heart disease, on lisinopril and torsemide. Hypothyroidism, on chronic levothyroxine. B12 deficiency. Resumed B12 supplements. Deep vein thrombosis (DVT) prophylaxis stockings, Lovenox held for hematuria from traumatic puga disposition: discharge pending resolution of urinary retention and placement back to [facility]isted living facility. VS, I&O, 24H, Fishbone Vital Signs/I&O Vital Signs Date Time Temp Pulse Resp B/P (MAP) Pulse Ox O2 Delivery O2 Flow Rate FiO2 10/10/18 11:11 98.0 96 18 121/67 (85) 97 10/06/18 18:24 Room Air I&O- Last 24 Hours up to 6 AM 10/10/18 06:00 Intake Total 1975 ml Output Total 3796 ml Balance -1821 ml Laboratory Data 24H LABS Laboratory Tests 2 10/10/18 04:51: Nucleated Red Blood Cells % (auto) 0.0, Anion Gap 5L, Glomerular Filtration Rate > 60.0, Blood Urea Nitrogen 6L, Creatinine 0.60L, Sodium Level 134L, Potassium Level 3.4L, Chloride Level 98, Carbon Dioxide Level 31, Calcium Level 7.5L CBC/BMP Laboratory Tests 10/10/18 04:51 Red Blood Count 3.16 L, Mean Corpuscular Volume 84.5, Mean Corpuscular Hemoglobin 29.1, Mean Corpuscular Hemoglobin Concent 34.5, Red Cell Distribution Width 15.2 H, Calcium Level 7.5 L Microbiology Microbiology 10/06/18 Blood Culture - Preliminary, Resulted No Growth after 72 hours. All specime... 10/06/18 Blood Culture - Preliminary, Resulted No Growth after 72 hours. All specime... 10/09/18 Urine Culture - Final, Complete JESSICA MI MD Oct 10, 2018 12:21
[2018-10-10 14:00] VITALS: BP 111/53
[2018-10-10] MEDS: PRAVASTATIN 20 MG TAB PO SCH (20:19)
[2018-10-10] MEDS: TAMSULOSIN 0.4 MG CAP PO SCH (20:19)
[2018-10-10 20:23] VITALS: BP 130/66
[2018-10-10] MEDS: LISINOPRIL 20 MG TAB PO SCH (20:23)
[2018-10-11 05:50] LABS: HEMATOCRIT 25.4 % (42.0-52.0); HEMOGLOBIN 8.7 g/dl (13.5-17.5); MEAN CORPUSCULAR HEMOGLOBIN 28.2 pg (27.0-33.0); MEAN CORPUSCULAR HGB CONC 34.3 g/dl (32.0-36.5); MEAN CORPUSCULAR VOLUME 82.2 fl (80.0-96.0); PLATELET COUNT, AUTOMATED 193 10^3/uL (150-450); RED BLOOD COUNT 3.09 10^6/uL (4.30-6.10); WHITE BLOOD COUNT 6.4 10^3/uL (4.0-10.0)
[2018-10-11] MEDS: LEVOTHYROXINE 100MCG TABLET (0.1MG) PO SCH (05:55)
[2018-10-11 06:04] VITALS: BP 131/67
[2018-10-11 06:10] LABS: BLOOD UREA NITROGEN 7 MG/DL (7-18); CALCIUM LEVEL 7.7 MG/DL (8.8-10.2); CARBON DIOXIDE LEVEL 30 MEQ/L (21-32); CHLORIDE LEVEL 95 MEQ/L (98-107); CREATININE FOR GFR 0.61 MG/DL (0.70-1.30); GLOMERULAR FILTRATION RATE > 60.0 (>42); GLUCOSE, FASTING 125 MG/DL (70-100); POTASSIUM SERUM 3.6 MEQ/L (3.5-5.1); SODIUM LEVEL 131 MEQ/L (136-145)
--- NOTE | 2018-10-11 07:22 | IPN ---
DATE: 10/11/2018 David is seen on rounding for the hospitalists, transferred out of ICU yesterday. Last night passed two large clots after being catheterized. Nurses irrigated his bladder and expelled 400 mL of urine with no postvoid residual. Urology due to see him today. He offers no acute complaint. PHYSICAL EXAMINATION: Vital signs stable. Afebrile. Lungs clear. Heart regular rhythm. Abdomen soft, nontender. No suprapubic tenderness. Lower extremities are bandaged. Neuro exam shows he is alert and oriented. He has Parkinsonian type tremor. IMPRESSION: 1. Acute urinary retention from traumatic Porras removal. Urology seeing him. He has felt better since the clots were irrigated out. 2. Venous insufficiency with question of cellulitis. He was on ceftaroline for a while which has been discontinued. 3. Tremors. EEG is pending. Looks Parkinsonian. 4. Various psychiatric issues. Continue his psychiatric medications.
[2018-10-11] MEDS: FAMOTIDINE 20 MG TAB PO SCH (08:43)
[2018-10-11] MEDS: POTASSIUM CHLORIDE 10 MEQ SR TABLET PO SCH (08:43)
[2018-10-11] MEDS: SODIUM CHLORIDE 1 GM TAB PO SCH ×2 (08:43→21:53)
[2018-10-11] MEDS: FERROUS SULFATE 325MG TAB PO SCH (08:43)
[2018-10-11] MEDS: TORSEMIDE 20 MG TAB PO SCH (08:43)
[2018-10-11] MEDS: BENZTROPINE 2 MG TAB PO SCH ×2 (08:43→21:53)
[2018-10-11] MEDS: DIAPER RELIEF PASTE (DESITIN) 60GM TOP SCH (09:00)
[2018-10-11] MEDS: VANICREAM MOISTURIZING SKIN CREAM 113GM TUBE TOP SCH (09:00)
[2018-10-11 14:00] VITALS: BP 112/50
[2018-10-11] MEDS: LISINOPRIL 20 MG TAB PO SCH (21:54)
[2018-10-11] MEDS: PRAVASTATIN 20 MG TAB PO SCH (21:54)
[2018-10-11] MEDS: TAMSULOSIN 0.4 MG CAP PO SCH (21:54)
[2018-10-11 22:00] VITALS: BP 104/55
[2018-10-12 06:00] VITALS: BP 137/57
[2018-10-12] MEDS: LEVOTHYROXINE 100MCG TABLET (0.1MG) PO SCH (06:27)
[2018-10-12 07:18] LABS: HEMATOCRIT 29.5 % (42.0-52.0); HEMOGLOBIN 9.6 g/dl (13.5-17.5); MEAN CORPUSCULAR HEMOGLOBIN 28.5 pg (27.0-33.0); MEAN CORPUSCULAR HGB CONC 32.5 g/dl (32.0-36.5); MEAN CORPUSCULAR VOLUME 87.5 fl (80.0-96.0); PLATELET COUNT, AUTOMATED 186 10^3/uL (150-450); RED BLOOD COUNT 3.37 10^6/uL (4.30-6.10); WHITE BLOOD COUNT 7.2 10^3/uL (4.0-10.0)
[2018-10-12 07:37] LABS: BLOOD UREA NITROGEN 7 MG/DL (7-18); CALCIUM LEVEL 7.8 MG/DL (8.8-10.2); CARBON DIOXIDE LEVEL 27 MEQ/L (21-32); CHLORIDE LEVEL 99 MEQ/L (98-107); CREATININE FOR GFR 0.54 MG/DL (0.70-1.30); GLOMERULAR FILTRATION RATE > 60.0 (>42); GLUCOSE, FASTING 99 MG/DL (70-100); POTASSIUM SERUM 3.9 MEQ/L (3.5-5.1); SODIUM LEVEL 132 MEQ/L (136-145)
[2018-10-12 08:28] LABS: BASO % 0.6 % (0.0-1.0); EOS # 0.2 10^3/uL (0.0-0.5); EOS % 2.6 % (0.0-3.0); LYMPH # 1.2 10^3/uL (1.5-5.0); LYMPH % 16.6 % (24.0-44.0); MONO # 0.9 10^3/uL (0.0-0.8); MONO % 12.1 % (0.0-5.0); NEUTROPHILS # 4.8 10^3/uL (1.5-8.5); NEUTROPHILS % 66.4 % (36.0-66.0)
[2018-10-12] MEDS: VANICREAM MOISTURIZING SKIN CREAM 113GM TUBE TOP SCH (09:00)
[2018-10-12] MEDS: DIAPER RELIEF PASTE (DESITIN) 60GM TOP SCH (09:00)
[2018-10-12] MEDS: TORSEMIDE 20 MG TAB PO SCH (09:42)
[2018-10-12] MEDS: SODIUM CHLORIDE 1 GM TAB PO SCH ×2 (09:42→20:47)
[2018-10-12] MEDS: FAMOTIDINE 20 MG TAB PO SCH (09:42)
[2018-10-12] MEDS: POTASSIUM CHLORIDE 10 MEQ SR TABLET PO SCH (09:42)
[2018-10-12] MEDS: FERROUS SULFATE 325MG TAB PO SCH (09:42)
[2018-10-12] MEDS: BENZTROPINE 2 MG TAB PO SCH ×2 (09:43→20:48)
--- NOTE | 2018-10-12 09:56 | IPNPDOC ---
Text Note Date of Service The patient was seen on 10/12/18. NOTE Subjective: Patient is a 78-year-old male with a past medical history of schizophrenia, history of bilateral lower extremity cellulitis who presented to the emergency room with increasing pain, swelling and redness of his right lower extremity. Patient was found have associated drainage. He was admitted to hospitalist service for further evaluation and treatment. . His hospital course was complicated with traumatic Porras removal by the patient. Patient was seen and examined at the bedside. He was seen sitting up at the side of the bed eating breakfast. He denies any problems overnight. Patient does have a Porras catheter in place which is draining urine without any blood-tinged. Patient denies chest pain, shortness of breath or palpitations. Objective: Vitals (See below) General: Lying in bed, no acute distress, comfortable, AAOx3 HEENT: NC, AT CVS: +S1S2 Lungs: Fair air entry b/l, auscultation is free of rhonchi, rales or wheezing Abdomen: Soft, ND, NT Extremities: No evidence of LE edema, - Calf tenderness Assessment and plan: s/p Acute blood loss anemia 2/2 hematuria from traumatic Porras removal - Patient remains hemodynamically stable - Hemoglobin remains stable - Has not required any transfusions at this time - c/w Ferrous sulfate Acute urinary retention - likely 2/2 traumatic Porras removal - Patient has an indwelling Porras catheter placed - Urology, Dr. Soares has been consulted - currently no interventions planned - c/w Tamsulosin Hyponatremia (mild) - Will continue to monitor Tremors / Possible Seizure activity - likely 2/2 medication use , possibly 2/2 Parkinson's? - Patient does not appear to exhibit any seizure-like activity at this time - Prolactin levels elevated - CT head 10/09/18: No acute intracranial abnormality. Chronic left basal ganglia lacunar infarct. Similar white matter disease. - Will require repeat lab work of prolactin - Will need outpatient follow up - c/w Benztropine Chronic venous insufficiency - Duplex US 10/06/18: No evidence of deep venous thrombosis of the right lower extremity femoral popliteal venous system. - Arterial US of RLE 10/08/18: Multiple stenoses are present in the proximal profunda, proximal SFA, distal SFA and proximal posterior tibial artery trunk. - c/w Wound care as per Dr. Topete's recommendations Schizophrenia - c/w Fluphenazine DLP - c/w Pravastatin HTN - c/w Lisinopril and torsemide Hypothyroidism - c/w Levothyroxine B12 deficiency - c/w B12 supplementation GERD - c/w Famotidine DVT prophylaxis - s/p Lovenox (re: Hematuria) - c/w SCDs/TEDs disposition: discharge pending resolution of urinary retention and placement back to Assisted living facility. VS,Fcobone, I+O VS, Fishbone, I+O Laboratory Tests 10/12/18 06:47 Red Blood Count 3.37 L, Mean Corpuscular Volume 87.5, Mean Corpuscular Hemoglobin 28.5, Mean Corpuscular Hemoglobin Concent 32.5, Red Cell Distribution Width 15.3 H, Calcium Level 7.8 L Vital Signs Date Time Temp Pulse Resp B/P (MAP) Pulse Ox O2 Delivery O2 Flow Rate FiO2 10/12/18 06:00 97.5 104 18 137/57 (83) 97 10/06/18 18:24 Room Air I&O- Last 24 Hours up to 6 AM 10/12/18 05:59 Intake Total 4060 ml Output Total 5639 ml Balance -1579 ml YUMIKO MAS MD Oct 12, 2018 09:56
[2018-10-12 10:02] LABS: BASOPHILS 1 % (0-1); EOSINOPHILS 3 % (0-3); LYMPHOCYTES 18 % (16-44); MONOCYTES 8 % (0-5); NEUTROPHILS 69 % (28-66)
[2018-10-12 10:03] LABS: PLATELET ESTIMATE NORMAL (NORMAL)
[2018-10-12 14:00] VITALS: BP 102/58
[2018-10-12] MEDS: PRAVASTATIN 20 MG TAB PO SCH (20:47)
[2018-10-12] MEDS: TAMSULOSIN 0.4 MG CAP PO SCH (20:47)
[2018-10-12] MEDS: LISINOPRIL 20 MG TAB PO SCH (20:48)
[2018-10-12 22:00] VITALS: BP 111/63
[2018-10-13] MEDS: LEVOTHYROXINE 100MCG TABLET (0.1MG) PO SCH (05:34)
[2018-10-13 06:00] VITALS: BP 103/48
[2018-10-13] MEDS: BENZTROPINE 2 MG TAB PO SCH ×2 (08:40→21:19)
[2018-10-13] MEDS: FERROUS SULFATE 325MG TAB PO SCH (08:40)
[2018-10-13] MEDS: TORSEMIDE 20 MG TAB PO SCH (08:40)
[2018-10-13] MEDS: DIAPER RELIEF PASTE (DESITIN) 60GM TOP SCH (08:41)
[2018-10-13] MEDS: SODIUM CHLORIDE 1 GM TAB PO SCH ×2 (08:41→21:19)
[2018-10-13] MEDS: FAMOTIDINE 20 MG TAB PO SCH (08:41)
[2018-10-13] MEDS: POTASSIUM CHLORIDE 10 MEQ SR TABLET PO SCH (08:41)
[2018-10-13] MEDS: VANICREAM MOISTURIZING SKIN CREAM 113GM TUBE TOP SCH (08:44)
[2018-10-13 14:23] VITALS: BP 113/74
--- NOTE | 2018-10-13 16:46 | IPNPDOC ---
Text Note Date of Service The patient was seen on 10/13/18. NOTE Subjective: Mr. Jade is perseverating on his social security number. Otherwise, he does not have any complaints of pain or discomfort related to his lower extremity cellulitis. He is very uncomfortable with his Porras catheter, however. Objective Please see vital signs below Physical exam: General: Sitting up in a chair, conversant HENT: Neck is supple with no adenopathy or thyromegaly, oral mucosa is moist. Cardiovascular: Regular rate and rhythm with a normal S1 and S2. Respiratory: Clear to auscultation with no rhonchi, rales or wheezes. Abdomen: Soft, nontender, nondistended, normal bowel tones. Genitourinary: Patient has Porras catheter in place. There is drainage of primarily yellow urine, no blood clots Extremities: No leg edema, but legs are contained within compression dressings. Neuro: Patient has significant tremors that resemble Parkinson's. Psych: Patient talks continuously of his social security number. Assessment/plan: #1. Chronic venous insufficiency. Patient's primary need is for wound care. We appreciate the assistance of Dr. Topete. There is decreased concern for cellulitis and MRI rules out osteomyelitis. #2. Acute urinary retention. Etiology is unclear. Patient has had some trauma associated with placement of a Porras catheter. Hematuria has resolved. Patient remains on Flomax. #3. Tremors. Patient is on an antipsychotic in the form of fluphenazine for his schizoph damien. Extrapyramidal symptoms are a common side effect. He is to remain on benztropine. VS,Fishbone, I+O VS, Fishbone, I+O Vital Signs Date Time Temp Pulse Resp B/P (MAP) Pulse Ox O2 Delivery O2 Flow Rate FiO2 10/13/18 14:23 97.0 87 16 113/74 (96) 97 I&O- Last 24 Hours up to 6 AM 10/13/18 06:00 Intake Total 5040 ml Output Total 5525 ml Balance -485 ml SHAW PEACOCK MD Oct 13, 2018 16:46
[2018-10-13] MEDS: LISINOPRIL 20 MG TAB PO SCH (21:18)
[2018-10-13] MEDS: PRAVASTATIN 20 MG TAB PO SCH (21:19)
[2018-10-13] MEDS: TAMSULOSIN 0.4 MG CAP PO SCH (21:19)
[2018-10-13 22:00] VITALS: BP 122/68
[2018-10-14 06:00] VITALS: BP 116/71
[2018-10-14] MEDS: LEVOTHYROXINE 100MCG TABLET (0.1MG) PO SCH (06:14)
[2018-10-14] MEDS: SODIUM CHLORIDE 1 GM TAB PO SCH ×2 (08:25→20:15)
[2018-10-14] MEDS: BENZTROPINE 2 MG TAB PO SCH ×2 (08:25→20:14)
[2018-10-14] MEDS: POTASSIUM CHLORIDE 10 MEQ SR TABLET PO SCH (08:26)
[2018-10-14] MEDS: FAMOTIDINE 20 MG TAB PO SCH (08:26)
[2018-10-14] MEDS: FERROUS SULFATE 325MG TAB PO SCH (08:26)
[2018-10-14] MEDS: TORSEMIDE 20 MG TAB PO SCH (08:26)
[2018-10-14] MEDS: VANICREAM MOISTURIZING SKIN CREAM 113GM TUBE TOP SCH (08:27)
[2018-10-14] MEDS: DIAPER RELIEF PASTE (DESITIN) 60GM TOP SCH (08:27)
[2018-10-14 15:20] VITALS: BP 116/60
--- NOTE | 2018-10-14 17:29 | IPNPDOC ---
Text Note Date of Service The patient was seen on 10/14/18. NOTE Subjective: Mr. Jade remains medically stable. He has had difficulty with leg wounds related to chronic venous insufficiency. He also had urinary retention and has required a chronic indwelling Porras. Objective: Please see vital signs below Physical exam: HENT: Neck is supple with no adenopathy or thyromegaly, oral mucosa is moist. Cardiovascular: Regular rate and rhythm with a normal S1 and S2. Respiratory: Clear to auscultation with no rhonchi, rales or wheezes. Abdomen: Soft, nontender, nondistended, normal bowel tones. Genitourinary: Patient has Porras catheter in place. There is drainage of primarily yellow urine, no blood clots Extremities: No leg edema, but legs are contained within compression dressings. Assessment/Plan: 1. Chronic venous insufficiency. Patient continues with appropriate wound care. He does not appear to have active cellulitis. He is off of antibiotics. No discrete organisms were isolated. 2. Acute urinary retention. Patient had had some trauma associated with placement of a Porras catheter. He had had a bleeding episode. The hematuria is resolved and he is hemodynamically stable. The patient remains on Flomax. 3. Tremors. These appear to be extrapyramidal symptoms related to his being on fluphenazine for his schizophrenia. He continues with benztropine. Disposition:. Ideally, the patient could return back to his prior living situation. However, the Porras catheter, presents a problem; he needs to be able to independently maintain it and maintain good hygiene. It is not clear that he will be able to do this. Consequently, he may need to transition to a location where he has more assistance such as in snf. There is ongoing discussion with discharge planning. VS,Fishbone, I+O VS, Fishbone, I+O Vital Signs Date Time Temp Pulse Resp B/P (MAP) Pulse Ox O2 Delivery O2 Flow Rate FiO2 10/14/18 15:20 96.7 81 18 116/60 (78) 96 I&O- Last 24 Hours up to 6 AM 10/14/18 06:00 Intake Total 4000 ml Output Total 6674 ml Balance -2674 ml SHAW PEACOCK MD Oct 14, 2018 17:29
[2018-10-14] MEDS: TAMSULOSIN 0.4 MG CAP PO SCH (20:14)
[2018-10-14] MEDS: LISINOPRIL 20 MG TAB PO SCH (20:14)
[2018-10-14] MEDS: PRAVASTATIN 20 MG TAB PO SCH (20:14)
[2018-10-14 22:00] VITALS: BP 114/51
[2018-10-15] MEDS: LEVOTHYROXINE 100MCG TABLET (0.1MG) PO SCH (05:45)
[2018-10-15 06:00] VITALS: BP 110/60
[2018-10-15] MEDS ORDERED: VANICREAM MOISTURIZING SKIN CREAM 113GM TUBE TOP SCH (09:00)
[2018-10-15] MEDS ORDERED: DIAPER RELIEF PASTE (DESITIN) 60GM TOP SCH (09:00)
[2018-10-15] MEDS: SODIUM CHLORIDE 1 GM TAB PO SCH ×2 (10:00→20:06)
[2018-10-15] MEDS: BENZTROPINE 2 MG TAB PO SCH ×2 (10:00→20:06)
[2018-10-15] MEDS: FERROUS SULFATE 325MG TAB PO SCH (10:00)
[2018-10-15] MEDS: FAMOTIDINE 20 MG TAB PO SCH (10:00)
[2018-10-15] MEDS: POTASSIUM CHLORIDE 10 MEQ SR TABLET PO SCH (10:00)
[2018-10-15] MEDS: TORSEMIDE 20 MG TAB PO SCH (10:00)
[2018-10-15 14:00] VITALS: BP 106/78
--- NOTE | 2018-10-15 18:09 | IPNPDOC ---
Text Note Date of Service The patient was seen on 10/15/18. NOTE Subjective: Mr. Jade remains medically stable. He has had difficulty with leg wounds related to chronic venous insufficiency. He also had urinary retention and has required a chronic indwelling Porras. Objective: Please see vital signs below Physical exam: HENT: Neck is supple with no adenopathy or thyromegaly, oral mucosa is moist. Cardiovascular: Regular rate and rhythm with a normal S1 and S2. Respiratory: Clear to auscultation with no rhonchi, rales or wheezes. Abdomen: Soft, nontender, nondistended, normal bowel tones. Genitourinary: Patient has Porras catheter in place. There is drainage of primarily yellow urine, no blood clots Extremities: No leg edema, but legs are contained within compression dressings. Neuro: Patient does exhibit parkinsonian-like tremors Assessment/Plan: 1. Chronic venous insufficiency. Patient continues with appropriate wound care. He does not appear to have active cellulitis. He is off of antibiotics. No discrete organisms were isolated. 2. Acute urinary retention. Patient had had some trauma associated with placement of a Porras catheter. He had had a bleeding episode. The hematuria is resolved and he is hemodynamically stable. The patient remains on Flomax. 3. Tremors. These appear to be extrapyramidal symptoms related to his being on fluphenazine for his schizophrenia. He continues with benztropine. Disposition:. Ideally, the patient could return back to his prior living situation. However, the Porras catheter, presents a problem; he needs to be able to independently maintain it and maintain good hygiene. It is not clear that he will be able to do this. He will need to transition to a location where he has more assistance such as in senior care. Anticipate placement within the next 24-48 hours. VS,Fishbone, I+O VS, Fishbone, I+O Vital Signs Date Time Temp Pulse Resp B/P (MAP) Pulse Ox O2 Delivery O2 Flow Rate FiO2 10/15/18 14:00 98.4 90 18 106/78 (87) 100 I&O- Last 24 Hours up to 6 AM 10/15/18 06:00 Intake Total 4600 ml Output Total 5044 ml Balance -444 ml SHAW PEACOCK MD Oct 15, 2018 18:09
[2018-10-15] MEDS: PRAVASTATIN 20 MG TAB PO SCH (20:06)
[2018-10-15] MEDS: TAMSULOSIN 0.4 MG CAP PO SCH (20:06)
[2018-10-15] MEDS: LISINOPRIL 20 MG TAB PO SCH (20:06)
[2018-10-15 22:00] VITALS: BP 110/59
[2018-10-16] VITALS (16 sets, daily range): BP systolic 80–124; BP diastolic 38–82
[2018-10-16] MEDS ORDERED: NS 1,000 ML IV ONE (05:15)
[2018-10-16] MEDS: LEVOTHYROXINE 100MCG TABLET (0.1MG) PO SCH (05:15)
[2018-10-16] MEDS: FAMOTIDINE 20 MG TAB PO SCH (08:09)
[2018-10-16] MEDS: SODIUM CHLORIDE 1 GM TAB PO SCH ×2 (08:09→20:09)
[2018-10-16] MEDS: BENZTROPINE 2 MG TAB PO SCH ×2 (08:09→20:09)
[2018-10-16] MEDS: POTASSIUM CHLORIDE 10 MEQ SR TABLET PO SCH (08:10)
[2018-10-16] MEDS: FERROUS SULFATE 325MG TAB PO SCH (08:10)
[2018-10-16] MEDS: TORSEMIDE 20 MG TAB PO SCH (08:10)
--- NOTE | 2018-10-16 18:22 | IPNPDOC ---
Text Note Date of Service The patient was seen on 10/16/18. NOTE Subjective: Mr. Jade remains medically stable. He has had difficulty with leg wounds related to chronic venous insufficiency. He also had urinary retention and has required a chronic indwelling Porras. He has occasional bleeding around it. The patient does not like it and at times fidgets with that. Objective: Please see vital signs below Physical exam: HENT: Neck is supple with no adenopathy or thyromegaly, oral mucosa is moist. Cardiovascular: Regular rate and rhythm with a normal S1 and S2. Respiratory: Clear to auscultation with no rhonchi, rales or wheezes. Abdomen: Soft, nontender, nondistended, normal bowel tones. Genitourinary: Patient has Porras catheter in place. There is drainage of primarily yellow urine, no blood clots Extremities: No leg edema, but legs are contained within compression dressings. Neuro: Patient does exhibit parkinsonian-like tremors Assessment/Plan: 1. Chronic venous insufficiency. Patient continues with appropriate wound care. He does not appear to have active cellulitis. He is off of antibiotics. No discrete organisms were isolated. 2. Acute urinary retention. Patient had had some trauma associated with placement of a Porras catheter. He had had a bleeding episode. The hematuria is resolved and he is hemodynamically stable. The patient remains on Flomax. 3. Tremors. These appear to be extrapyramidal symptoms related to his being on fluphenazine for his schizophrenia. He continues with benztropine. VS,Fishbone, I+O VS, Fishbone, I+O Vital Signs Date Time Temp Pulse Resp B/P (MAP) Pulse Ox O2 Delivery O2 Flow Rate FiO2 10/16/18 15:25 104/50 (68) 10/16/18 14:00 97.5 111 18 98 I&O- Last 24 Hours up to 6 AM 10/16/18 06:00 Intake Total 3760 ml Output Total 3950 ml Balance -190 ml SHAW PEACOCK MD Oct 16, 2018 18:22
[2018-10-16] MEDS ORDERED: NS 500 ML IV ONE (19:00)
[2018-10-16] MEDS: PRAVASTATIN 20 MG TAB PO SCH (20:09)
[2018-10-16] MEDS: TAMSULOSIN 0.4 MG CAP PO SCH (20:10)
[2018-10-16] MEDS: LISINOPRIL 20 MG TAB PO SCH (21:00)
[2018-10-17] VITALS (10 sets, daily range): BP systolic 92–123; BP diastolic 49–75
[2018-10-17] MEDS: LEVOTHYROXINE 100MCG TABLET (0.1MG) PO SCH (05:54)
[2018-10-17 06:44] LABS: HEMATOCRIT 24.4 % (42.0-52.0); HEMOGLOBIN 8.4 g/dl (13.5-17.5); MEAN CORPUSCULAR HEMOGLOBIN 28.8 pg (27.0-33.0); MEAN CORPUSCULAR HGB CONC 34.4 g/dl (32.0-36.5); MEAN CORPUSCULAR VOLUME 83.6 fl (80.0-96.0); PLATELET COUNT, AUTOMATED 286 10^3/uL (150-450); RED BLOOD COUNT 2.92 10^6/uL (4.30-6.10); WHITE BLOOD COUNT 11.1 10^3/uL (4.0-10.0)
[2018-10-17] MEDS: FAMOTIDINE 20 MG TAB PO SCH (08:59)
[2018-10-17] MEDS: FERROUS SULFATE 325MG TAB PO SCH (08:59)
[2018-10-17] MEDS: SODIUM CHLORIDE 1 GM TAB PO SCH ×2 (08:59→20:53)
[2018-10-17] MEDS: BENZTROPINE 2 MG TAB PO SCH ×2 (08:59→20:54)
[2018-10-17] MEDS: TORSEMIDE 20 MG TAB PO SCH (09:00)
[2018-10-17] MEDS: POTASSIUM CHLORIDE 10 MEQ SR TABLET PO SCH (09:00)
--- NOTE | 2018-10-17 16:19 | IPNPDOC ---
Text Note Date of Service The patient was seen on 10/17/18. NOTE Subjective: Mr. Jade remains medically stable. He has had difficulty with leg wounds related to chronic venous insufficiency. He also had urinary retention and has required a chronic indwelling Porras. He has occasional bleeding around it. The patient does not like it. Objective: Please see vital signs below Physical exam: General: The patient knows and participates in the physical exam by rote. HENT: Neck is supple with no adenopathy or thyromegaly, oral mucosa is moist. Cardiovascular: Regular rate and rhythm with a normal S1 and S2. Respiratory: Clear to auscultation with no rhonchi, rales or wheezes. Abdomen: Soft, nontender, nondistended, normal bowel tones. Genitourinary: Patient has Porras catheter in place. There is drainage of yellow urine, no blood clots Extremities: No leg edema, but legs are contained within compression dressings. Neuro: Patient does exhibit parkinsonian-like tremors Assessment/Plan: 1. Chronic venous insufficiency. Patient continues with appropriate wound care. He does not have active cellulitis. He is off of antibiotics. No discrete organisms were isolated. 2. Acute urinary retention. Patient had had some trauma associated with placement of a Porras catheter. He had had a bleeding episode. The hematuria is resolved and he is hemodynamically stable. The patient remains on Flomax. 3. Tremors. These appear to be extrapyramidal symptoms related to his being on fluphenazine for his schizophrenia. He continues with benztropine, can try increased dosage to control symptoms. VS,Fishbone, I+O VS,Fishbone, I+O VS, Fishbone, I+O Laboratory Tests 10/17/18 05:14 Red Blood Count 2.92 L, Mean Corpuscular Volume 83.6, Mean Corpuscular Hemoglobin 28.8, Mean Corpuscular Hemoglobin Concent 34.4, Red Cell Distribution Width 15.9 H Vital Signs Date Time Temp Pulse Resp B/P (MAP) Pulse Ox O2 Delivery O2 Flow Rate FiO2 10/17/18 14:05 97.8 78 18 99/49 (66 85 I&O- Last 24 Hours up to 6 AM 10/17/18 05:59 Intake Total 6900 ml Output Total 5500 ml Balance 1400 ml SHAW PEACOCK MD Oct 17, 2018 16:19
[2018-10-17] MEDS: PRAVASTATIN 20 MG TAB PO SCH (20:53)
[2018-10-17] MEDS: TAMSULOSIN 0.4 MG CAP PO SCH (20:54)
[2018-10-17] MEDS: LISINOPRIL 20 MG TAB PO SCH (20:58)
[2018-10-18] MEDS: LEVOTHYROXINE 100MCG TABLET (0.1MG) PO SCH (05:24)
[2018-10-18 06:00] VITALS: BP 109/54
[2018-10-18 07:30] LABS: HEMATOCRIT 23.2 % (42.0-52.0); HEMOGLOBIN 7.9 g/dl (13.5-17.5); MEAN CORPUSCULAR HEMOGLOBIN 28.4 pg (27.0-33.0); MEAN CORPUSCULAR HGB CONC 34.1 g/dl (32.0-36.5); MEAN CORPUSCULAR VOLUME 83.5 fl (80.0-96.0); PLATELET COUNT, AUTOMATED 291 10^3/uL (150-450); RED BLOOD COUNT 2.78 10^6/uL (4.30-6.10); WHITE BLOOD COUNT 9.1 10^3/uL (4.0-10.0)
[2018-10-18 07:49] LABS: BLOOD UREA NITROGEN 6 MG/DL (7-18); CARBON DIOXIDE LEVEL 31 MEQ/L (21-32); CHLORIDE LEVEL 86 MEQ/L (98-107); CREATININE FOR GFR 0.61 MG/DL (0.70-1.30); GLOMERULAR FILTRATION RATE > 60.0 (>42); GLUCOSE, FASTING 93 MG/DL (70-100); POTASSIUM SERUM 4.7 MEQ/L (3.5-5.1); SODIUM LEVEL 122 MEQ/L (136-145)
[2018-10-18] MEDS: TORSEMIDE 20 MG TAB PO SCH (08:47)
[2018-10-18] MEDS: SODIUM CHLORIDE 1 GM TAB PO SCH ×2 (08:47→20:06)
[2018-10-18] MEDS: FAMOTIDINE 20 MG TAB PO SCH (08:48)
[2018-10-18] MEDS: POTASSIUM CHLORIDE 10 MEQ SR TABLET PO SCH (08:48)
[2018-10-18] MEDS: BENZTROPINE 2 MG TAB PO SCH ×2 (08:48→20:06)
[2018-10-18] MEDS: FERROUS SULFATE 325MG TAB PO SCH (08:48)
[2018-10-18 14:00] VITALS: BP 102/54
--- NOTE | 2018-10-18 14:45 | IPNPDOC ---
Text Note Date of Service The patient was seen on 10/18/18. NOTE The patient is comfortable and cooperative with exam up in a chair at bedside. The most immediately remarkable observation is that his tremors are substantially improved. Patient was admitted with reported cellulitis to his lower extremities. He is awaiting placement. Physical exam: General: The patient knows and participates in the physical exam by humberto. HENT: Neck is supple with no adenopathy or thyromegaly, oral mucosa is moist. Cardiovascular: Regular rate and rhythm with a normal S1 and S2. Respiratory: Clear to auscultation with no rhonchi, rales or wheezes. Abdomen: Soft, nontender, nondistended, normal bowel tones. Genitourinary: Patient has Porras catheter in place. There is drainage of yellow urine, no blood clots Extremities: No leg edema, but legs are contained within compression dressings. Neuro: Patient's tremors are remarkably controlled at this time. Assessment/Plan: 1. Chronic venous insufficiency. Patient continues with appropriate wound care. He does not have active cellulitis. He is off of antibiotics. No discrete organisms were isolated. He does not have leukocytosis. 2. Acute urinary retention. Patient had had some trauma associated with placement of a Porras catheter. He had had a bleeding episode. The hematuria is resolved and he is hemodynamically stable. The patient remains on Flomax. 3. Tremors. These appear to be extrapyramidal symptoms related to his being on fluphenazine for his schizophrenia. We have increased the dosage of his benztropine to which he appears to be responding; we will need to continue to monitor for any toxic effect. 4. Hypernatremia. Patient has had this periodically but this is worsened. We will remove salt restriction from his diet. We will also place him on fluid restriction. VS,Fishbone, I+O VS, Fishbone, I+O Laboratory Tests 10/18/18 06:40 Red Blood Count 2.78 L, Mean Corpuscular Volume 83.5, Mean Corpuscular Hemoglobin 28.4, Mean Corpuscular Hemoglobin Concent 34.1, Red Cell Distribution Width 15.8 H, Calcium Level 8.0 L Vital Signs Date Time Temp Pulse Resp B/P (MAP) Pulse Ox O2 Delivery O2 Flow Rate FiO2 10/18/18 06:00 98.1 74 20 109/54 (72) 99 I&O- Last 24 Hours up to 6 AM 10/18/18 06:00 Intake Total 4020 ml Output Total 4175 ml Balance -155 ml SHAW PEACOCK MD Oct 18, 2018 14:45
[2018-10-18] MEDS: PRAVASTATIN 20 MG TAB PO SCH (20:06)
[2018-10-18 20:09] VITALS: BP 105/62
[2018-10-18] MEDS: LISINOPRIL 20 MG TAB PO SCH (20:09)
[2018-10-18] MEDS: TAMSULOSIN 0.4 MG CAP PO SCH (20:09)
[2018-10-18 22:00] VITALS: BP 104/52
[2018-10-19] VITALS (10 sets, daily range): BP systolic 80–103; BP diastolic 36–57
[2018-10-19] MEDS ORDERED: HALOPERIDOL 5 MG/ML VIAL (J1630) IV ONE (02:45)
[2018-10-19 02:54] LABS: HEMATOCRIT 21.3 % (42.0-52.0); HEMOGLOBIN 7.5 g/dl (13.5-17.5); MEAN CORPUSCULAR HEMOGLOBIN 29.4 pg (27.0-33.0); MEAN CORPUSCULAR HGB CONC 35.2 g/dl (32.0-36.5); MEAN CORPUSCULAR VOLUME 83.5 fl (80.0-96.0); PLATELET COUNT, AUTOMATED 278 10^3/uL (150-450); RED BLOOD COUNT 2.55 10^6/uL (4.30-6.10); WHITE BLOOD COUNT 10.1 10^3/uL (4.0-10.0)
[2018-10-19 03:19] LABS: BLOOD UREA NITROGEN 6 MG/DL (7-18); CALCIUM LEVEL 7.4 MG/DL (8.8-10.2); CARBON DIOXIDE LEVEL 29 MEQ/L (21-32); CHLORIDE LEVEL 82 MEQ/L (98-107); CREATININE FOR GFR 0.64 MG/DL (0.70-1.30); GLOMERULAR FILTRATION RATE > 60.0 (>42); GLUCOSE, FASTING 106 MG/DL (70-100); SODIUM LEVEL 118 MEQ/L (136-145); URIC ACID 4.6 MG/DL (3.5-7.2)
[2018-10-19 03:38] LABS: OSMOLALITY URINE 126 MOSM/KG (500-800)
[2018-10-19 03:59] LABS: CREATININE,RANDOM URINE 29.3 MG/DL; SODIUM,RANDOM URINE < 10 MEQ/L
[2018-10-19] MEDS: LEVOTHYROXINE 100MCG TABLET (0.1MG) PO SCH (05:43)
[2018-10-19] MEDS ORDERED: NS 500 ML IV ONE (06:30)
[2018-10-19] MEDS: FERROUS SULFATE 325MG TAB PO SCH (08:02)
[2018-10-19] MEDS: POTASSIUM CHLORIDE 10 MEQ SR TABLET PO SCH (08:02)
[2018-10-19] MEDS: FAMOTIDINE 20 MG TAB PO SCH (08:02)
[2018-10-19] MEDS: BENZTROPINE 2 MG TAB PO SCH ×2 (08:02→20:11)
[2018-10-19] MEDS: SODIUM CHLORIDE 1 GM TAB PO SCH ×2 (08:02→20:10)
[2018-10-19 12:50] LABS: BLOOD UREA NITROGEN 6 MG/DL (7-18); CALCIUM LEVEL 7.5 MG/DL (8.8-10.2); CARBON DIOXIDE LEVEL 27 MEQ/L (21-32); CHLORIDE LEVEL 88 MEQ/L (98-107); CREATININE FOR GFR 0.51 MG/DL (0.70-1.30); GLOMERULAR FILTRATION RATE > 60.0 (>42); GLUCOSE, FASTING 84 MG/DL (70-100); POTASSIUM SERUM 4.5 MEQ/L (3.5-5.1); SODIUM LEVEL 121 MEQ/L (136-145)
--- NOTE | 2018-10-19 14:45 | IPNPDOC ---
Text Note Date of Service The patient was seen on 10/19/18. NOTE Mr. Jade was transferred to the ICU overnight. He was not especially sy mptomatic, but was found to have hyponatremia with a serum sodium of 118. Of interest, the patient has had remarkable psychogenic polydipsia. We have found that he has been drinking up to 4 L of water per day. Objective: Physical exam: General: The patient knows and participates in the physical exam by humberto. HENT: Neck is supple with no adenopathy or thyromegaly, oral mucosa is moist. Cardiovascular: Regular rate and rhythm with a normal S1 and S2. Respiratory: Clear to auscultation with no rhonchi, rales or wheezes. Abdomen: Soft, nontender, nondistended, normal bowel tones. Genitourinary: Patient has Porras catheter in place. There is drainage of yellow urine, no blood clots, the patient does persist with bleeding at the tip of the penis around the Porras cath Extremities: No leg edema, compression dressing has been removed from right foot, there is faint erythema but otherwise skin is dry and mildly scaly. Neuro: Patient's tremors are remarkably controlled at this time. Assessment/Plan: 1. Chronic venous insufficiency. Patient continues with appropriate wound care. He does not have active cellulitis. He is off of antibiotics. No discrete organisms were isolated. He does not have leukocytosis. 2. Acute urinary retention. Patient had had some trauma associated with placement of a Porras catheter. He had had a bleeding episode. The hematuria is resolved , there is still some bleeding around the tip of the penis. And he is hemodynamically stable. The patient remains on Flomax. The patient's hemoglobin has decreased somewhat to 7.5. Of interest, the patient has refused transfusion in the past; we will try to approach him with this again. 3. Tremors. These appear to be extrapyramidal symptoms related to his being on fluphenazine for his schizophrenia. We have increased the dosage of his benztropine to which he appears to be responding; we will need to continue to monitor for any toxic effect. 4. Hypernatremia. Patient has had this periodically but this has worsened. We have removed the salt restriction from his diet and he is on fluid restriction of 1500 mL's per day. VS,Fishbone, I+O VS, Fishbone, I+O Laboratory Tests 10/19/18 02:48 Red Blood Count 2.55 L, Mean Corpuscular Volume 83.5, Mean Corpuscular Hemogl obin 29.4, Mean Corpuscular Hemoglobin Concent 35.2, Red Cell Distribution Width 15.5 H, Calcium Level 7.4 L 10/19/18 12:09 Calcium Level 7.5 L Vital Signs Date Time Temp Pulse Resp B/P (MAP) Pulse Ox O2 Delivery O2 Flow Rate FiO2 10/19/18 11:46 97.4 101 17 92/50 (46) 98 I&O- Last 24 Hours up to 6 AM 10/19/18 05:59 Intake Total 2200 ml Output Total 4550 ml Balance -2350 ml SHAW PEACOCK MD Oct 19, 2018 14:45
[2018-10-19] MEDS: SENNA 8.6 MG TAB (SENOKOT) PO SCH (15:01)
[2018-10-19] MEDS: PRAVASTATIN 20 MG TAB PO SCH (20:10)
[2018-10-19] MEDS: TAMSULOSIN 0.4 MG CAP PO SCH (20:10)
[2018-10-19] MEDS: DOCUSATE SODIUM 100 MG CAP PO SCH (20:11)
[2018-10-19 20:46] LABS: BLOOD UREA NITROGEN 6 MG/DL (7-18); CALCIUM LEVEL 7.8 MG/DL (8.8-10.2); CARBON DIOXIDE LEVEL 28 MEQ/L (21-32); CHLORIDE LEVEL 91 MEQ/L (98-107); CREATININE FOR GFR 0.54 MG/DL (0.70-1.30); GLOMERULAR FILTRATION RATE > 60.0 (>42); GLUCOSE, FASTING 106 MG/DL (70-100); POTASSIUM SERUM 4.2 MEQ/L (3.5-5.1); SODIUM LEVEL 125 MEQ/L (136-145)
[2018-10-20] VITALS: BP 97/54
[2018-10-20 04:00] VITALS: BP 98/53
[2018-10-20] MEDS: LEVOTHYROXINE 100MCG TABLET (0.1MG) PO SCH (05:04)
[2018-10-20 05:05] LABS: HEMATOCRIT 20.3 % (42.0-52.0); HEMOGLOBIN 7.1 g/dl (13.5-17.5); MEAN CORPUSCULAR HEMOGLOBIN 29.7 pg (27.0-33.0); MEAN CORPUSCULAR VOLUME 84.9 fl (80.0-96.0); PLATELET COUNT, AUTOMATED 232 10^3/uL (150-450); RED BLOOD COUNT 2.39 10^6/uL (4.30-6.10); WHITE BLOOD COUNT 8.5 10^3/uL (4.0-10.0)
[2018-10-20 05:31] LABS: BLOOD UREA NITROGEN 6 MG/DL (7-18); CALCIUM LEVEL 7.7 MG/DL (8.8-10.2); CARBON DIOXIDE LEVEL 27 MEQ/L (21-32); CHLORIDE LEVEL 95 MEQ/L (98-107); CREATININE FOR GFR 0.57 MG/DL (0.70-1.30); FREE T4 1.06 NG/DL (0.76-1.46); GLOMERULAR FILTRATION RATE > 60.0 (>42); GLUCOSE, FASTING 98 MG/DL (70-100); SODIUM LEVEL 128 MEQ/L (136-145)
[2018-10-20 08:00] VITALS: BP 105/51
[2018-10-20] MEDS: BENZTROPINE 2 MG TAB PO SCH ×2 (08:30→20:25)
[2018-10-20] MEDS: FAMOTIDINE 20 MG TAB PO SCH (08:30)
[2018-10-20] MEDS: SODIUM CHLORIDE 1 GM TAB PO SCH ×2 (08:30→20:25)
[2018-10-20] MEDS: FERROUS SULFATE 325MG TAB PO SCH (08:30)
[2018-10-20] MEDS: DOCUSATE SODIUM 100 MG CAP PO SCH ×2 (08:30→20:25)
[2018-10-20] MEDS: POTASSIUM CHLORIDE 10 MEQ SR TABLET PO SCH (08:31)
[2018-10-20] MEDS: SENNA 8.6 MG TAB (SENOKOT) PO SCH (08:31)
[2018-10-20 12:00] VITALS: BP 93/52
[2018-10-20 16:00] VITALS: BP 102/52
--- NOTE | 2018-10-20 17:35 | IPNPDOC ---
Text Note Date of Service The patient was seen on 10/20/18. NOTE Mr. Jade was transferred to the ICU due to hyponatremia with a serum so dium of 118. Of interest, the patient had had remarkable psychogenic polydipsia. We had found that he has been drinking up to 4 L of water per day. He is on fluid restriction with good response. Objective: Physical exam: General: The patient knows and participates in the physical exam by humberto. He d oes acknowledge this keno writer and allows exam. HENT: Neck is supple with no adenopathy or thyromegaly, oral mucosa is moist. Cardiovascular: Regular rate and rhythm with a normal S1 and S2. Respiratory: Clear to auscultation with no rhonchi, rales or wheezes. Abdomen: Soft, nontender, nondistended, normal bowel tones. Genitourinary: Patient has Porras catheter in place. There is drainage of yellow urine, no blood clots, the patient does persist with bleeding at the tip of the penis around the Porras cath Extremities: No leg edema, compression dressing has been removed from right foot, there is faint erythema but otherwise skin is dry and mildly scaly. Neuro: Patient's tremors are remarkably controlled at this time. Assessment/Plan: 1. Chronic venous insufficiency. Patient continues with appropriate wound care. He does not have active cellulitis. He is off of antibiotics. No discrete organisms were isolated. He does not have leukocytosis. 2. Acute urinary retention. Patient had had some trauma associated with placement of a Porras catheter. He had had a bleeding episode. The hematuria is resolved , there is still some bleeding around the tip of the penis but he is hemodynamically stable. The patient remains on Flomax. The patient's hemoglobin has decreased further to 7.1. The patient has refused transfusion in the past. I have discussed this with him again and he still refuses transfusion. Patient does make most of his own medical decisions. 3. Tremors. These appear to be extrapyramidal symptoms related to his being on fluphenazine for his schizophrenia. We have increased the dosage of his benztropine to which he appears to be responding; we will need to continue to monitor for any toxic effect. 4. Hyponatremia. Patient has had this periodically but this has worsened. With removal of salt restriction from his diet and with fluid restriction of 1500 mL's per day serum sodium has come up to 128. VS,Fishbone, I+O VS, Fishbone, I+O Laboratory Tests 10/19/18 20:06 Calcium Level 7.8 L 10/20/18 04:53 Calcium Level 7.7 L, Red Blood Count 2.39 L, Mean Corpuscular Volume 84.9, Mean Corpuscular Hemoglobin 29.7, Mean Corpuscular Hemoglobin Concent 35.0, Red Cell Distribution Width 15.7 H Vital Signs Date Time Temp Pulse Resp B/P (MAP) Pulse Ox O2 Delivery O2 Flow Rate FiO2 10/20/18 12:00 98.1 98 16 93/52 (81) 96 I&O- Last 24 Hours up to 6 AM 10/20/18 06:00 Intake Total 910 ml Output Total 3800 ml Balance -2890 ml SHAW PEACOCK MD Oct 20, 2018 17:35
[2018-10-20 20:00] VITALS: BP 91/55
[2018-10-20] MEDS: TAMSULOSIN 0.4 MG CAP PO SCH (20:25)
[2018-10-20] MEDS: ACETAMINOPHEN TAB 650MG DOSE (2X325MG) PO PRN (20:25)
[2018-10-20] MEDS: PRAVASTATIN 20 MG TAB PO SCH (20:25)
[2018-10-21] VITALS: BP 111/72
[2018-10-21 04:00] VITALS: BP 117/59
[2018-10-21] MEDS: LEVOTHYROXINE 100MCG TABLET (0.1MG) PO SCH (05:08)
[2018-10-21 08:00] VITALS: BP 112/70
[2018-10-21 08:15] LABS: HEMATOCRIT 22.6 % (42.0-52.0); HEMOGLOBIN 7.5 g/dl (13.5-17.5); MEAN CORPUSCULAR HEMOGLOBIN 28.6 pg (27.0-33.0); MEAN CORPUSCULAR HGB CONC 33.2 g/dl (32.0-36.5); MEAN CORPUSCULAR VOLUME 86.3 fl (80.0-96.0); PLATELET COUNT, AUTOMATED 268 10^3/uL (150-450); RED BLOOD COUNT 2.62 10^6/uL (4.30-6.10); WHITE BLOOD COUNT 8.8 10^3/uL (4.0-10.0)
[2018-10-21] MEDS: POTASSIUM CHLORIDE 10 MEQ SR TABLET PO SCH (08:24)
[2018-10-21] MEDS: FERROUS SULFATE 325MG TAB PO SCH (08:25)
[2018-10-21] MEDS: BENZTROPINE 2 MG TAB PO SCH ×2 (08:25→20:20)
[2018-10-21] MEDS: SODIUM CHLORIDE 1 GM TAB PO SCH ×2 (08:25→20:20)
[2018-10-21] MEDS: SENNA 8.6 MG TAB (SENOKOT) PO SCH (08:25)
[2018-10-21] MEDS: DOCUSATE SODIUM 100 MG CAP PO SCH ×2 (08:25→20:20)
[2018-10-21] MEDS: FAMOTIDINE 20 MG TAB PO SCH (08:25)
[2018-10-21 08:45] LABS: BLOOD UREA NITROGEN 7 MG/DL (7-18); CALCIUM LEVEL 8.1 MG/DL (8.8-10.2); CARBON DIOXIDE LEVEL 26 MEQ/L (21-32); CHLORIDE LEVEL 96 MEQ/L (98-107); CREATININE FOR GFR 0.53 MG/DL (0.70-1.30); GLOMERULAR FILTRATION RATE > 60.0 (>42); GLUCOSE, FASTING 102 MG/DL (70-100); POTASSIUM SERUM 4.2 MEQ/L (3.5-5.1); SODIUM LEVEL 130 MEQ/L (136-145)
--- NOTE | 2018-10-21 13:04 | IPNPDOC ---
Text Note Date of Service The patient was seen on 10/21/18. NOTE The patient is remarkably calm and cooperative with nursing staff while he is being bathed. Patient was initially admitted with cellulitis which has since resolved. He currently has resolving hyponatremia; patient has had psychogenic polydipsia. The patient has underlying schizophrenia and elements of obsessive- compulsive disorder. Objective: Physical exam: General: He does acknowledge this medical technical writer and allows exam; also allows bathing by nursing staff. HENT: Neck is supple with no adenopathy or thyromegaly, oral mucosa is moist. Cardiovascular: Regular rate and rhythm with a normal S1 and S2. Respiratory: Clear to auscultation with no rhonchi, rales or wheezes. Abdomen: Soft, nontender, nondistended, normal bowel tones. Genitourinary: Patient has Porras catheter in place. There is drainage of yellow urine, no blood clots, patient has decreased bleeding around the tip of his penis today at the site of his Porras catheter Extremities: No leg edema, compression dressing has been removed from right foot, there is faint erythema but otherwise skin is dry and mildly scaly. Neuro: Patient's tremors are remarkably controlled at this time. Psych: Patient does on occasion express some extraordinary ideas such as paranoia about a conspiracy by the postal service. Assessment/Plan: 1. Chronic venous insufficiency. Patient continues with appropriate wound care. He does not have active cellulitis. He is off of antibiotics. No discrete organisms were isolated. He does not have leukocytosis. 2. Acute urinary retention. Patient had had some trauma associated with placement of a Porras catheter. He had had a bleeding episode. The hematuria is resolved , there is still some bleeding around the tip of the penis but he is hemodynamically stable. I believe at times it gets re-traumatized when he pulls on it. The patient remains on Flomax. The patient's hemoglobin has decreased further to 7.1. The patient has refused transfusion in the past. I have discussed this with him again and he still refuses transfusion. Patient does make most of his own medical decisions. 3. Tremors. These appear to be extrapyramidal symptoms related to his being on fluphenazine for his schizophrenia. We have increased the dosage of his benztropine to which he appears to be responding; we will need to continue to monitor for any toxic effect. 4. Hyponatremia. Patient has had this periodically but this has worsened. With removal of salt restriction from his diet and with fluid restriction of 1500 mL's per day serum sodium has come up to 130. VS,Fishbone, I+O VS, Fishbone, I+O Laboratory Tests 10/21/18 08:03 Red Blood Count 2.62 L, Mean Corpuscular Volume 86.3, Mean Corpuscular Hemoglobin 28.6, Mean Corpuscular Hemoglobin Concent 33.2, Red Cell Distribution Width 16.4 H, Calcium Level 8.1 L Vital Signs Date Time Temp Pulse Resp B/P (MAP) Pulse Ox O2 Delivery O2 Flow Rate FiO2 10/21/18 04:00 97.4 85 16 117/59 (78) 98 I&O- Last 24 Hours up to 6 AM 10/21/18 05:59 Intake Total 1100 ml Output Total 1450 ml Balance -350 ml SHAW PEACOCK MD Oct 21, 2018 13:04
[2018-10-21 13:49] LABS: HEMATOCRIT 23.5 % (42.0-52.0); HEMOGLOBIN 7.9 g/dl (13.5-17.5); MEAN CORPUSCULAR HEMOGLOBIN 29.3 pg (27.0-33.0); MEAN CORPUSCULAR HGB CONC 33.6 g/dl (32.0-36.5); PLATELET COUNT, AUTOMATED 292 10^3/uL (150-450); WHITE BLOOD COUNT 9.5 10^3/uL (4.0-10.0)
[2018-10-21 14:18] LABS: BLOOD UREA NITROGEN 8 MG/DL (7-18); CALCIUM LEVEL 8.3 MG/DL (8.8-10.2); CARBON DIOXIDE LEVEL 28 MEQ/L (21-32); CHLORIDE LEVEL 97 MEQ/L (98-107); CREATININE FOR GFR 0.55 MG/DL (0.70-1.30); GLOMERULAR FILTRATION RATE > 60.0 (>42); GLUCOSE, FASTING 117 MG/DL (70-100); POTASSIUM SERUM 4.4 MEQ/L (3.5-5.1); SODIUM LEVEL 132 MEQ/L (136-145)
[2018-10-21 14:30] VITALS: BP 110/59
[2018-10-21] MEDS: PRAVASTATIN 20 MG TAB PO SCH (20:20)
[2018-10-21] MEDS: TAMSULOSIN 0.4 MG CAP PO SCH (20:20)
[2018-10-21] MEDS: ACETAMINOPHEN TAB 650MG DOSE (2X325MG) PO PRN (20:21)
[2018-10-21 22:00] VITALS: BP 106/61
[2018-10-22] MEDS: LEVOTHYROXINE 100MCG TABLET (0.1MG) PO SCH (05:43)
[2018-10-22 06:00] VITALS: BP 102/58
[2018-10-22] MEDS: BENZTROPINE 2 MG TAB PO SCH ×2 (09:17→21:08)
[2018-10-22] MEDS: POTASSIUM CHLORIDE 10 MEQ SR TABLET PO SCH (09:17)
[2018-10-22] MEDS: DOCUSATE SODIUM 100 MG CAP PO SCH ×2 (09:17→21:08)
[2018-10-22] MEDS: SODIUM CHLORIDE 1 GM TAB PO SCH ×2 (09:18→21:23)
[2018-10-22] MEDS: SENNA 8.6 MG TAB (SENOKOT) PO SCH (09:18)
[2018-10-22] MEDS: FERROUS SULFATE 325MG TAB PO SCH (09:18)
[2018-10-22] MEDS: FAMOTIDINE 20 MG TAB PO SCH (09:18)
--- NOTE | 2018-10-22 12:46 | IPNPDOC ---
Text Note Date of Service The patient was seen on 10/22/18. NOTE SUBJECTIVE: Mr. Jade is again observed playing with his Porras catheter. This may be causing some trauma and bleeding. He did manage to disconnect the tubing from his bag, but did not remove the Porras. The Porras had been in place due to urinary retention. The patient is otherwise medically stable and doing well. oBJECTIVE: HENT: Neck is supple with no adenopathy or thyromegaly, oral mucosa is moist. Cardiovascular: Regular rate and rhythm with a normal S1 and S2. Respiratory: Clear to auscultation with no rhonchi, rales or wheezes. Abdomen: Soft, nontender, nondistended, normal bowel tones. Genitourinary: Patient has Porras catheter in place. There is drainage of yellow urine, no blood clots, patient has decreased bleeding around the tip of his penis today at the site of his Porras catheter Extremities: No leg edema, compression dressing has been removed from right foot, there is faint erythema but otherwise skin is dry and mildly scaly. Neuro: Patient's tremors are remarkably controlled at this time. Psych: Patient does on occasion express some extraordinary ideas such as paranoia about a conspiracy by the postal service; he is distractible with a task. Assessment/Plan: 1. Chronic venous insufficiency. Patient continues with appropriate wound care. He does not have active cellulitis. He is off of antibiotics. No discrete organisms were isolated. He does not have leukocytosis. 2. Acute urinary retention. Patient had had some trauma associated with placement of a Porras catheter. He had had a bleeding episode. The hematuria is resolved , there is still some bleeding around the tip of the penis but he is hemodynamically stable. I believe at times it gets re-traumatized when he pulls on it. The patient remains on Flomax. The patient's hemoglobin has decreased further to 7.1. The patient has refused transfusion in the past. I have discussed this with him again and he still refuses transfusion. Patient does make most of his own medical decisions. 3. Tremors. These appear to be extrapyramidal symptoms related to his being on fluphenazine for his schizophrenia. We have increased the dosage of his benztropine to which he appears to be responding; we will need to continue to monitor for any toxic effect. 4. Hyponatremia. Patient has had this periodically but this has worsened. With removal of salt restriction from his diet and with fluid restriction of 1500 mL's per day serum sodium has come up to 132. VS,Fishbone, I+O VS, Fishbone, I+O Laboratory Tests 10/21/18 13:22 Red Blood Count 2.70 L, Mean Corpuscular Volume 87.0, Mean Corpuscular Hemoglobin 29.3, Mean Corpuscular Hemoglobin Concent 33.6, Red Cell Distribution Width 16.5 H, Calcium Level 8.3 L Vital Signs Date Time Temp Pulse Resp B/P (MAP) Pulse Ox O2 Delivery O2 Flow Rate FiO2 10/22/18 06:00 97.7 85 18 102/58 (73) 98 I&O- Last 24 Hours up to 6 AM 10/22/18 06:00 Intake Total 1100 ml Output Total 1450 ml Balance -350 ml SHAW PEACOCK MD Oct 22, 2018 12:46
[2018-10-22 14:24] VITALS: BP 102/49
[2018-10-22] MEDS: TAMSULOSIN 0.4 MG CAP PO SCH (21:07)
[2018-10-22] MEDS: PRAVASTATIN 20 MG TAB PO SCH (21:08)
[2018-10-22 22:00] VITALS: BP 111/54
[2018-10-23 06:00] VITALS: BP 120/64
[2018-10-23 06:05] LABS: HEMATOCRIT 21.5 % (42.0-52.0); HEMOGLOBIN 7.3 g/dl (13.5-17.5); MEAN CORPUSCULAR HEMOGLOBIN 28.9 pg (27.0-33.0); PLATELET COUNT, AUTOMATED 283 10^3/uL (150-450); RED BLOOD COUNT 2.53 10^6/uL (4.30-6.10)
[2018-10-23 06:23] LABS: BLOOD UREA NITROGEN 9 MG/DL (7-18); CALCIUM LEVEL 7.6 MG/DL (8.8-10.2); CARBON DIOXIDE LEVEL 27 MEQ/L (21-32); CHLORIDE LEVEL 97 MEQ/L (98-107); CREATININE FOR GFR 0.45 MG/DL (0.70-1.30); GLOMERULAR FILTRATION RATE > 60.0 (>42); GLUCOSE, FASTING 102 MG/DL (70-100); POTASSIUM SERUM 4.1 MEQ/L (3.5-5.1); SODIUM LEVEL 131 MEQ/L (136-145)
[2018-10-23] MEDS: LEVOTHYROXINE 100MCG TABLET (0.1MG) PO SCH (06:35)
[2018-10-23] MEDS: FAMOTIDINE 20 MG TAB PO SCH (09:03)
[2018-10-23] MEDS: POTASSIUM CHLORIDE 10 MEQ SR TABLET PO SCH (09:03)
[2018-10-23] MEDS: SODIUM CHLORIDE 1 GM TAB PO SCH ×2 (09:03→20:54)
[2018-10-23] MEDS: BENZTROPINE 2 MG TAB PO SCH ×2 (09:03→20:55)
[2018-10-23] MEDS: FERROUS SULFATE 325MG TAB PO SCH (09:03)
[2018-10-23] MEDS: DOCUSATE SODIUM 100 MG CAP PO SCH ×2 (09:04→20:54)
[2018-10-23] MEDS: SENNA 8.6 MG TAB (SENOKOT) PO SCH (09:04)
[2018-10-23 14:00] VITALS: BP 100/55
--- NOTE | 2018-10-23 17:59 | IPNPDOC ---
Text Note Date of Service The patient was seen on 10/23/18. NOTE SUBJECTIVE: Mr. Jade is medically stable and resting comfortably. He has a Porras catheter in place due to prior urinary retention with complications. OBJECTIVE: HENT: Neck is supple with no adenopathy or thyromegaly, oral mucosa is moist. Cardiovascular: Regular rate and rhythm with a normal S1 and S2. Respiratory: Clear to auscultation with no rhonchi, rales or wheezes. Abdomen: Soft, nontender, nondistended, normal bowel tones. Genitourinary: Patient has Porras catheter in place. There is drainage of yellow urine, no blood clots, patient has decreased bleeding around the tip of his penis at the site of his Porras catheter Extremities: No leg edema, compression dressing has been removed from right foot, there is faint erythema but otherwise skin is dry and mildly scaly. Neuro: Patient's tremors are remarkably controlled at this time. Psych: Patient does on occasion express some extraordinary ideas, he is otherwise quite cooperative Assessment/Plan: 1. Chronic venous insufficiency. Patient continues with appropriate wound care. He does not have active cellulitis. He is off of antibiotics. No discrete organisms were isolated. He does not have leukocytosis. 2. Acute urinary retention. Patient had had some trauma associated with placement/re--placement of a Porras catheter due to urinary retention. He had had a bleeding episode. The hematuria is resolved. There is still some bleeding around the tip of the penis but he is hemodynamically stable. I believe at times it gets re-traumatized when he pulls on it. The patient remains on Flomax. Hemoglobin has come down to 7.2. Patient refuses transfusion. I am minimizing blood draws to recheck his hemoglobin. 3. Tremors. These appear to be extrapyramidal symptoms related to his being on fluphenazine for his schizophrenia. We have increased the dosage of his benztropine to which he appears to be responding; we will need to continue to monitor for any toxic effect. 4. Hyponatremia. With removal of salt restriction from his diet and with fluid restriction of 1500 mL's per day serum sodium has come up to 132 and is remaining stable. VS,Fishbone, I+O VS, Fishbone, I+O Laboratory Tests 10/23/18 05:38 Red Blood Count 2.53 L, Mean Corpuscular Volume 85.0, Mean Corpuscular Hemoglobin 28.9, Mean Corpuscular Hemoglobin Concent 34.0, Red Cell Distribution Width 16.0 H, Calcium Level 7.6 L Vital Signs Date Time Temp Pulse Resp B/P (MAP) Pulse Ox O2 Delivery O2 Flow Rate FiO2 10/23/18 14:00 97.5 86 16 100/55 (70) 97 I&O- Last 24 Hours up to 6 AM 10/23/18 06:00 Intake Total 1380 ml Output Total 1300 ml Balance 80 ml SHAW PEACOCK MD Oct 23, 2018 17:59
[2018-10-23] MEDS: PRAVASTATIN 20 MG TAB PO SCH (20:54)
[2018-10-23] MEDS: TAMSULOSIN 0.4 MG CAP PO SCH (20:54)
[2018-10-24] MEDS: LEVOTHYROXINE 100MCG TABLET (0.1MG) PO SCH (05:32)
[2018-10-24 06:00] VITALS: BP 103/55
[2018-10-24 08:16] LABS: HEMATOCRIT 24.1 % (42.0-52.0); HEMOGLOBIN 7.9 g/dl (13.5-17.5); MEAN CORPUSCULAR HEMOGLOBIN 28.6 pg (27.0-33.0); MEAN CORPUSCULAR HGB CONC 32.8 g/dl (32.0-36.5); MEAN CORPUSCULAR VOLUME 87.3 fl (80.0-96.0); PLATELET COUNT, AUTOMATED 306 10^3/uL (150-450); RED BLOOD COUNT 2.76 10^6/uL (4.30-6.10)
[2018-10-24] MEDS: POTASSIUM CHLORIDE 10 MEQ SR TABLET PO SCH (08:16)
[2018-10-24] MEDS: BENZTROPINE 2 MG TAB PO SCH ×2 (08:17→20:04)
[2018-10-24] MEDS: SODIUM CHLORIDE 1 GM TAB PO SCH ×2 (08:17→20:04)
[2018-10-24] MEDS: DOCUSATE SODIUM 100 MG CAP PO SCH ×2 (08:17→20:04)
[2018-10-24] MEDS: SENNA 8.6 MG TAB (SENOKOT) PO SCH (08:17)
[2018-10-24] MEDS: FERROUS SULFATE 325MG TAB PO SCH (08:17)
[2018-10-24] MEDS: FAMOTIDINE 20 MG TAB PO SCH (08:17)
[2018-10-24 08:25] LABS: BLOOD UREA NITROGEN 11 MG/DL (7-18); CALCIUM LEVEL 8.4 MG/DL (8.8-10.2); CARBON DIOXIDE LEVEL 28 MEQ/L (21-32); CHLORIDE LEVEL 94 MEQ/L (98-107); CREATININE FOR GFR 0.56 MG/DL (0.70-1.30); GLOMERULAR FILTRATION RATE > 60.0 (>42); GLUCOSE, FASTING 124 MG/DL (70-100); POTASSIUM SERUM 4.1 MEQ/L (3.5-5.1); SODIUM LEVEL 129 MEQ/L (136-145)
[2018-10-24 15:18] VITALS: BP 129/58
--- NOTE | 2018-10-24 15:19 | IPNPDOC ---
Text Note Date of Service The patient was seen on 10/24/18. NOTE SUBJECTIVE: Mr. Jade continues to otherwise do well. He is medically stable. He has not had any acute events. OBJECTIVE: HENT: Neck is supple with no adenopathy or thyromegaly, oral mucosa is moist. Cardiovascular: Regular rate and rhythm with a normal S1 and S2. Respiratory: Clear to auscultation with no rhonchi, rales or wheezes. Abdomen: Soft, nontender, nondistended, normal bowel tones. Genitourinary: Patient has Porras catheter in place. There is drainage of yellow urine, occasional blood clots, patient has decreased bleeding around the tip of his penis at the site of his Porras catheter Extremities: No leg edema, small compression dressing to his right foot, there is faint erythema but otherwise skin is dry and mildly scaly. Neuro: Patient's tremors are remain controlled at this time. Assessment/Plan: 1. Chronic venous insufficiency. Patient continues with appropriate wound care. He does not have active cellulitis. 2. Acute urinary retention. Patient had had some trauma associated with placement/re--placement of a Porras catheter due to urinary retention. He had had a bleeding episode. The hematuria is resolved. There is still some bleeding around the tip of the penis but he is hemodynamically stable. I believe at times it gets re-traumatized when he pulls on it. The patient remains on Flomax. Hemoglobin has come down to 7.2. Patient r efuses transfusion. I am minimizing blood draws to recheck his hemoglobin. We have been asked to again trial Porras catheter removal to avoid infection. 3. Tremors. These appear to be extrapyramidal symptoms related to his being on fluphenazine for his schizophrenia. We have increased the dosage of his benztropine to which he appears to be responding; we will need to continue to monitor for any toxic effect. 4. Hyponatremia. With removal of salt restriction from his diet and with fluid restriction of 1500 mL's per day serum sodium had come up to 132, but is 129 today. Concern is raised that with being back on a medical floor instead of the ICU he has increased access to free water. We will need to watch him closely; if his serum sodium drops again, we will need to limit his access to the faucets. VS,Fishbone, I+O VS, Fishbone, I+O Laboratory Tests 10/24/18 08:02 Red Blood Count 2.76 L, Mean Corpuscular Volume 87.3, Mean Corpuscular Hemogl obin 28.6, Mean Corpuscular Hemoglobin Concent 32.8, Red Cell Distribution Width 15.9 H, Calcium Level 8.4 L Vital Signs Date Time Temp Pulse Resp B/P (MAP) Pulse Ox O2 Delivery O2 Flow Rate FiO2 10/24/18 06:00 97.5 80 16 103/55 (71) 100 I&O- Last 24 Hours up to 6 AM 10/24/18 06:00 Intake Total 1370 ml Output Total 925 ml Balance 445 ml SHAW PEACOCK MD Oct 24, 2018 15:19
[2018-10-24] MEDS: LevoFLOXacin 500 MG TABLET PO SCH (15:37)
[2018-10-24 20:00] VITALS: BP 128/60
[2018-10-24] MEDS: TAMSULOSIN 0.4 MG CAP PO SCH (20:04)
[2018-10-24] MEDS: PRAVASTATIN 20 MG TAB PO SCH (20:04)
[2018-10-25 04:00] VITALS: BP 125/61
[2018-10-25] MEDS: LEVOTHYROXINE 100MCG TABLET (0.1MG) PO SCH (06:30)
[2018-10-25] MEDS: LevoFLOXacin 500 MG TABLET PO SCH (06:31)
[2018-10-25 07:00] LABS: BLOOD UREA NITROGEN 9 MG/DL (7-18); CARBON DIOXIDE LEVEL 29 MEQ/L (21-32); CHLORIDE LEVEL 93 MEQ/L (98-107); CREATININE FOR GFR 0.59 MG/DL (0.70-1.30); GLOMERULAR FILTRATION RATE > 60.0 (>42); GLUCOSE, FASTING 90 MG/DL (70-100); POTASSIUM SERUM 4.1 MEQ/L (3.5-5.1); SODIUM LEVEL 126 MEQ/L (136-145)
[2018-10-25 07:15] VITALS: BP 125/61
[2018-10-25] MEDS: SODIUM CHLORIDE 1 GM TAB PO SCH ×2 (08:54→20:41)
[2018-10-25] MEDS: FAMOTIDINE 20 MG TAB PO SCH (08:54)
[2018-10-25] MEDS: SENNA 8.6 MG TAB (SENOKOT) PO SCH (08:54)
[2018-10-25] MEDS: DOCUSATE SODIUM 100 MG CAP PO SCH ×2 (08:54→20:42)
[2018-10-25] MEDS: FERROUS SULFATE 325MG TAB PO SCH (08:55)
[2018-10-25] MEDS: BENZTROPINE 2 MG TAB PO SCH ×2 (08:55→20:45)
[2018-10-25] MEDS: POTASSIUM CHLORIDE 10 MEQ SR TABLET PO SCH (08:55)
[2018-10-25 14:00] VITALS: BP 108/59
--- NOTE | 2018-10-25 15:59 | IPNPDOC ---
Text Note Date of Service The patient was seen on 10/25/18. NOTE SUBJECTIVE: Mr. Jade is much more comfortable with the Porras catheter out. He does not appear to be having difficulty with urinating. OBJECTIVE: HENT: Neck is supple with no adenopathy or thyromegaly, oral mucosa is moist. Cardiovascular: Regular rate and rhythm with a normal S1 and S2. Respiratory: Clear to auscultation with no rhonchi, rales or wheezes. Abdomen: Soft, nontender, nondistended, normal bowel tones. Genitourinary: Porras catheter is out Extremities: No leg edema, small compression dressing to his right foot, there is faint erythema but otherwise skin is dry and mildly scaly. Neuro: Patient's tremors remain controlled at this time. Assessment/Plan: 1. Chronic venous insufficiency. Patient continues with appropriate wound care. He does not have active cellulitis. 2. Acute urinary retention. Patient had had some trauma associated with placement/re--placement of a Porras catheter due to urinary retention. He had had a bleeding episode. The hematuria is resolved. There was some bleeding around the tip of the penis but he is hemodynamically stable. I believe at times it got re-traumatized when he pulled on it. The patient remains on Flomax. Hemoglobin has come down to 7.2. Patient refuses transfusion. Porras catheter has been removed; he is urinating well thus far. He remains at risk of fluid retention due to medications. 3. Tremors. These appear to be extrapyramidal symptoms related to his being on fluphenazine for his schizophrenia. We have increased the dosage of his benztropine to which he appears to be responding; we will need to continue to monitor for any toxic effect. 4. Hyponatremia. With removal of salt restriction from his diet and with fluid restriction of 1500 mL's per day serum sodium had come up to 132. Concern is raised that with being back on a medical floor instead of the ICU he has increased access to free water. His serum sodium has dropped again to 126, and so we will need to monitor his free water access more closely. He is toileting himself and so he could be getting water from the faucets. 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 Hyponatremia would not be a side effect from his benztropine for his fluphenazine. VS,Fishbone, I+O VS, Fishbone, I+O Laboratory Tests 10/25/18 05:53 Calcium Level 8.0 L Vital Signs Date Time Temp Pulse Resp B/P (MAP) Pulse Ox O2 Delivery O2 Flow Rate FiO2 10/25/18 14:00 98.1 71 18 108/59 (75) 93 I&O- Last 24 Hours up to 6 AM 10/25/18 05:59 Intake Total 810 ml Output Total 2500 ml Balance -1690 ml SHAW PEACOCK MD Oct 25, 2018 15:59
[2018-10-25] MEDS: PRAVASTATIN 20 MG TAB PO SCH (20:42)
[2018-10-25] MEDS: TAMSULOSIN 0.4 MG CAP PO SCH (20:42)
[2018-10-25 22:00] VITALS: BP 108/58
[2018-10-26] MEDS: LevoFLOXacin 500 MG TABLET PO SCH (05:09)
[2018-10-26] MEDS: LEVOTHYROXINE 100MCG TABLET (0.1MG) PO SCH (05:09)
[2018-10-26 06:00] VITALS: BP 108/58
[2018-10-26 06:12] LABS: HEMATOCRIT 21.8 % (42.0-52.0); HEMOGLOBIN 7.3 g/dl (13.5-17.5); MEAN CORPUSCULAR HEMOGLOBIN 28.6 pg (27.0-33.0); MEAN CORPUSCULAR HGB CONC 33.5 g/dl (32.0-36.5); MEAN CORPUSCULAR VOLUME 85.5 fl (80.0-96.0); PLATELET COUNT, AUTOMATED 281 10^3/uL (150-450); RED BLOOD COUNT 2.55 10^6/uL (4.30-6.10); WHITE BLOOD COUNT 6.2 10^3/uL (4.0-10.0)
[2018-10-26 06:30] LABS: BLOOD UREA NITROGEN 8 MG/DL (7-18); CALCIUM LEVEL 8.1 MG/DL (8.8-10.2); CARBON DIOXIDE LEVEL 27 MEQ/L (21-32); CHLORIDE LEVEL 96 MEQ/L (98-107); CREATININE FOR GFR 0.56 MG/DL (0.70-1.30); GLOMERULAR FILTRATION RATE > 60.0 (>42); GLUCOSE, FASTING 87 MG/DL (70-100); SODIUM LEVEL 130 MEQ/L (136-145)
[2018-10-26] MEDS: SODIUM CHLORIDE 1 GM TAB PO SCH ×2 (08:38→22:07)
[2018-10-26] MEDS: POTASSIUM CHLORIDE 10 MEQ SR TABLET PO SCH (08:38)
[2018-10-26] MEDS: DOCUSATE SODIUM 100 MG CAP PO SCH ×2 (08:39→22:07)
[2018-10-26] MEDS: BENZTROPINE 2 MG TAB PO SCH ×2 (08:39→22:07)
[2018-10-26] MEDS: FERROUS SULFATE 325MG TAB PO SCH (08:39)
[2018-10-26] MEDS: SENNA 8.6 MG TAB (SENOKOT) PO SCH (08:39)
[2018-10-26] MEDS: FAMOTIDINE 20 MG TAB PO SCH (08:39)
[2018-10-26 14:00] VITALS: BP 113/58
--- NOTE | 2018-10-26 19:36 | IPNPDOC ---
Text Note Date of Service The patient was seen on 10/26/18. NOTE Mr. Jade has been seen ambulating in the gray with a walker and no ass istance. He has good gait and balance. OBJECTIVE: HENT: Neck is supple with no adenopathy or thyromegaly, oral mucosa is moist. Cardiovascular: Regular rate and rhythm with a normal S1 and S2. Respiratory: Clear to auscultation with no rhonchi, rales or wheezes. Abdomen: Soft, nontender, nondistended, normal bowel tones. Genitourinary: Porras catheter is out Extremities: No leg edema, small compression dressing to his right foot, there is faint erythema but otherwise skin is dry and mildly scaly. Neuro: Patient's tremors remain controlled at this time, no ataxia with ambulation Psych: The patient continues to intermittently express some delusional ideas. Assessment/Plan: 1. Chronic venous insufficiency. Patient continues with appropriate wound care. He does not have active celluliti s. 2. Acute urinary retention. Patient had had some trauma associated with placement/re--placement of a Porras catheter due to urinary retention. He had had a bleeding episode. The hematuria is resolved. There was some bleeding around the tip of the penis but he is hemodynamically stable. I believe at times it got re-traumatized when he pulled on it. The patient remains on Flomax. Hemoglobin has come down to 7.2. Patient refuses transfusion. Porras catheter has been removed; he is urinating well thus far. He remains at risk of fluid retention due to medications. 3. Tremors. These appear to be extrapyramidal symptoms related to his being on fluphenazine for his schizophrenia. We have increased the dosage of his benztropine to which he appears to be responding; we will need to continue to monitor for any toxic effect. 4. Hyponatremia. With removal of salt restriction from his diet and with fluid restriction of 1500 mL's per day serum sodium had come up to 132. Concern is raised that with being back on a medical floor instead of the ICU he has increased access to free water. His serum sodium has dropped again to 126, and so we will need to monitor his free water access more closely. He is toileting himself and so he could be getting water from the faucets. 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 Today, his serum sodium is again 130. Hopefully this reflects closer supervision. Hyponatremia would not be a side effect from his benztropine for his fluphenazine. VS,Fishbone, I+O VS, Fishbone, I+O Laboratory Tests 10/26/18 05:32 Red Blood Count 2.55 L, Mean Corpuscular Volume 85.5, Mean Corpuscular Hemoglobin 28.6, Mean Corpuscular Hemoglobin Concent 33.5, Red Cell Distribution Width 15.3 H, Calcium Level 8.1 L Vital Signs Date Time Temp Pulse Resp B/P (MAP) Pulse Ox O2 Delivery O2 Flow Rate FiO2 10/26/18 14:00 98.5 89 18 113/58 (20) 98 I&O- Last 24 Hours up to 6 AM 10/26/18 05:59 Intake Total 2040 ml Output Total 1950 ml Balance 90 ml SHAW PEACOCK MD Oct 26, 2018 19:36
[2018-10-26 21:33] VITALS: BP 112/64
[2018-10-26] MEDS: PRAVASTATIN 20 MG TAB PO SCH (22:06)
[2018-10-26] MEDS: TAMSULOSIN 0.4 MG CAP PO SCH (22:07)
[2018-10-27] MEDS: LevoFLOXacin 500 MG TABLET PO SCH (05:47)
[2018-10-27] MEDS: LEVOTHYROXINE 100MCG TABLET (0.1MG) PO SCH (05:47)
[2018-10-27 06:20] LABS: BLOOD UREA NITROGEN 9 MG/DL (7-18); CALCIUM LEVEL 7.7 MG/DL (8.8-10.2); CARBON DIOXIDE LEVEL 31 MEQ/L (21-32); CHLORIDE LEVEL 97 MEQ/L (98-107); CREATININE FOR GFR 0.56 MG/DL (0.70-1.30); GLOMERULAR FILTRATION RATE > 60.0 (>42); GLUCOSE, FASTING 90 MG/DL (70-100); POTASSIUM SERUM 4.1 MEQ/L (3.5-5.1); SODIUM LEVEL 132 MEQ/L (136-145)
[2018-10-27 06:27] VITALS: BP 108/51
[2018-10-27] MEDS: FERROUS SULFATE 325MG TAB PO SCH (09:27)
[2018-10-27] MEDS: SODIUM CHLORIDE 1 GM TAB PO SCH ×2 (09:27→21:45)
[2018-10-27] MEDS: FAMOTIDINE 20 MG TAB PO SCH (09:27)
[2018-10-27] MEDS: SENNA 8.6 MG TAB (SENOKOT) PO SCH (09:27)
[2018-10-27] MEDS: POTASSIUM CHLORIDE 10 MEQ SR TABLET PO SCH (09:27)
[2018-10-27] MEDS: BENZTROPINE 2 MG TAB PO SCH ×2 (09:27→21:45)
[2018-10-27] MEDS: DOCUSATE SODIUM 100 MG CAP PO SCH ×2 (09:27→21:45)
[2018-10-27 14:00] VITALS: BP 109/51
--- NOTE | 2018-10-27 21:05 | IPNPDOC ---
Text Note Date of Service The patient was seen on 10/27/18. NOTE Mr. Jade continues to do well. Again, he is independently ambulatory with his walker; he is needing minimal supervision. Physical exam: HENT: Neck is supple with no adenopathy or thyromegaly, oral mucosa is moist. Cardiovascular: Regular rate and rhythm with a normal S1 and S2. Respiratory: Clear to auscultation with no rhonchi, rales or wheezes. Abdomen: Soft, nontender, nondistended, normal bowel tones. Extremities: No leg edema, small compression dressing to his right foot, there is faint erythema but otherwise skin is dry and mildly scaly. Neuro: Patient's tremors remain controlled at this time, no ataxia with ambulation Psych: The patient continues to intermittently express some delusional ideas, otherwise, he has generally been socially appropriate Assessment/Plan: 1. Chronic venous insufficiency. Patient continues with appropriate wound care. He does not have active cellulitis. 2. Acute urinary retention. Patient had had some trauma associated with placement/re--placement of a Porras catheter due to urinary retention. He had had a bleeding episode. The hematuria is resolved. There was some bleeding around the tip of the penis but he is hemodynamically stable. I believe at times it got re-traumatized when he pulled on it. The patient remains on Flomax. Hemoglobin has come down to 7.2. Patient refuses transfusion. Porras catheter has been removed; he is urinating well thus far. He remains at risk of fluid retention due to medications. 3. Tremors. These appear to be extrapyramidal symptoms related to his being on fluphenazine for his schizophrenia. We have increased the dosage of his benztropine to which he appears to be responding; we will need to continue to monitor for any toxic effect. 4. Hyponatremia. With removal of salt restriction from his diet and with fluid restriction of 1500 mL's per day serum sodium had come up to 132. Concern is raised that with being back on a medical floor instead of the ICU he has increased access to free water. His serum sodium has dropped again to 126, and so we will need to monitor his free water access more closely. He is toileting himself and so he could be getting water from the faucets. 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 Today, his serum sodium is again 132. Hopefully this reflects closer supervision. Hyponatremia would not be a side effect from his benztropine or his fluphenazine. VS,Fishbone, I+O VS, Fishbone, I+O Laboratory Tests 10/27/18 05:16 Calcium Level 7.7 L Vital Signs Date Time Temp Pulse Resp B/P (MAP) Pulse Ox O2 Delivery O2 Flow Rate FiO2 10/27/18 14:00 98.0 91 20 109/51 (70) 99 I&O- Last 24 Hours up to 6 AM 10/27/18 06:00 Intake Total 1350 ml Output Total 2550 ml Balance -1200 ml SHAW PEACOCK MD Oct 27, 2018 21:05
[2018-10-27 21:45] VITALS: BP 132/71
[2018-10-27] MEDS: TAMSULOSIN 0.4 MG CAP PO SCH (21:45)
[2018-10-27] MEDS: PRAVASTATIN 20 MG TAB PO SCH (21:45)
[2018-10-28 05:43] VITALS: BP 122/56
[2018-10-28] MEDS: LEVOTHYROXINE 100MCG TABLET (0.1MG) PO SCH (05:52)
[2018-10-28] MEDS: LevoFLOXacin 500 MG TABLET PO SCH (05:52)
[2018-10-28 06:33] LABS: HEMATOCRIT 22.4 % (42.0-52.0); HEMOGLOBIN 7.3 g/dl (13.5-17.5); MEAN CORPUSCULAR HEMOGLOBIN 28.9 pg (27.0-33.0); MEAN CORPUSCULAR HGB CONC 32.6 g/dl (32.0-36.5); MEAN CORPUSCULAR VOLUME 88.5 fl (80.0-96.0); PLATELET COUNT, AUTOMATED 280 10^3/uL (150-450); RED BLOOD COUNT 2.53 10^6/uL (4.30-6.10); WHITE BLOOD COUNT 6.5 10^3/uL (4.0-10.0)
[2018-10-28 06:54] LABS: BLOOD UREA NITROGEN 8 MG/DL (7-18); CALCIUM LEVEL 8.1 MG/DL (8.8-10.2); CARBON DIOXIDE LEVEL 31 MEQ/L (21-32); CHLORIDE LEVEL 96 MEQ/L (98-107); CREATININE FOR GFR 0.54 MG/DL (0.70-1.30); GLOMERULAR FILTRATION RATE > 60.0 (>42); GLUCOSE, FASTING 93 MG/DL (70-100); POTASSIUM SERUM 3.9 MEQ/L (3.5-5.1); SODIUM LEVEL 130 MEQ/L (136-145)
[2018-10-28] MEDS: DOCUSATE SODIUM 100 MG CAP PO SCH (09:55)
[2018-10-28] MEDS: BENZTROPINE 2 MG TAB PO SCH (09:55)
[2018-10-28] MEDS: POTASSIUM CHLORIDE 10 MEQ SR TABLET PO SCH (09:55)
[2018-10-28] MEDS: FAMOTIDINE 20 MG TAB PO SCH (09:55)
[2018-10-28] MEDS: SODIUM CHLORIDE 1 GM TAB PO SCH (09:55)
[2018-10-28] MEDS: SENNA 8.6 MG TAB (SENOKOT) PO SCH (09:56)
[2018-10-28] MEDS: FERROUS SULFATE 325MG TAB PO SCH (09:56)
[2018-10-28] MEDS ORDERED: FLOM0.4C39 PO ×2 (12:06→12:28)
[2018-10-28] MEDS ORDERED: BENZ2TAB5 PO ×2 (12:06→12:28)
--- NOTE | 2018-10-28 19:44 | DS.PDOC ---
Discharge Summary General Date of Admission Oct 09, 2018 at 08:23 Date of Discharge 10/28/18 Discharge Summary PROCEDURES PERFORMED DURING STAY: [None]. ADMITTING DIAGNOSES: 1. Schizophrenia 2. Hyponatremia 3. chronic venous insufficiency 4. HLD 5. HTN 6. Hypothyroidism 7. iron deificiency anemia 8. BPH 9. hx prostate ca 10. hx bladder ca? DISCHARGE DIAGNOSES: 1. Schizophrenia 2. Hyponatremia 3. chronic venous insufficiency 4. HLD 5. HTN 6. Hypothyroidism 7. iron deificiency anemia 8. BPH 9. hx prostate ca 10. hx bladder ca? 11. Hematuria 12. UTI COMPLICATIONS/CHIEF COMPLAINT: Cellulitis Of Rt Foot. HISTORY OF PRESENT ILLNESS: "This is a 78-year-old male with a past medical history significant for schizophrenia, chronic venous insufficiency, old left basal ganglia lacunar infarct, dyslipidemia, hypertensive heart disease, hypothyroidism, spondylosis without myelopathy, hyponatremia, iron deficiency anemia, chronic anemia, benign prostatic hypertrophy, was brought in to the emergency room from [facility] due to increasing pain and swelling of the right lower extremity with increasing venous drainage. The patient has been treated as an outpatient for cellulitis of the right foot with progressive erythema, pain and swelling. Denies any fever, chills but has had difficulty wit h ambulation. IQRA wrap has been given and daily dressing changes. Per the patient, he has not had any significant improvement. In the emergency room (ER), he is afebrile at 97.8. Normal white count. C-reactive protein (CRP) and sedimentation rate are still pending. Hospitalist was called to admit for right foot cellulitis in the setting of chronic venous insufficiency." HOSPITAL COURSE: Patient treated for RLE cellulitis/chronic venous insufficiency with improvement including Abx and wound care, seen by Dr. Topete. He was also seen by urology for acute urinary retention and was started on flomax with also improvement in symptoms. Course of hospitalization complicated hematuria 2/2 traumatic puga removal but Hb remained stable. Hb down to low 7 but patient refused transfusion but Hb had been stable at that range. Puga was removed and patient has been urinating well. Tremors also noted, likely EPS from Fluphenazine for his schizophrenia. Benztropine dose was increased with reported improvement. Also treated for hyponatremia with removal of salt restricted diet as well as free water intake. Patient had history of psychogenic polydipsia. Patient now stable for discharge to assisted living. Need close f/u with PMD, avoid excess free fluid intake and monitor Na level. DISCHARGE MEDICATIONS: Please see below. ALLERGIES: Please see below. PHYSICAL EXAMINATION ON DISCHARGE: VITAL SIGNS: Please see below. General: No acute distress, Alert Eyes: Normal sclera, EOMI, JON HENT: Atraumatic, neck supple, moist mucous membranes Cardiovascular: Normal rate, normal rhythm. No murmurs appreciated. Pulmonary: Clear to auscultation b/l, no wheezing GI: Soft, nontender, nondistended Skin: Warm and dry Neuro: CN grossly intact. No focal deficits. Strengths equal b/l. Psych: oriented x 3 LABORATORY DATA: Please see below. ACTIVITY: [As tolerated]. DIET: Regular DISCHARGE PLAN: f/u PCP within 1 week DISPOSITION: O4 Xfer Alp Ssv. DISCHARGE INSTRUCTIONS: f/u PCP within 1 week Monitor periodic Na level Fluid restriction ITEMS TO FOLLOWUP ON ON OUTPATIENT: None DISCHARGE CONDITION: [Stable]. TIME SPENT ON DISCHARGE: 35 minutes. Vital Signs/I&Os Vital Signs Date Time Temp Pulse Resp B/P (MAP) Pulse Ox O2 Delivery O2 Flow Rate FiO2 10/28/18 05:43 97.6 84 18 122/56 (78) 96 I&O- Last 24 Hours up to 6 AM 10/28/18 06:00 Intake Total 1760 ml Output Total 1050 ml Balance 710 ml Laboratory Data Labs 24H Laboratory Tests 2 10/28/18 05:50: Nucleated Red Blood Cells % (auto) 0.0, Anion Gap 3L, Glomerular Filtration Rate > 60.0, Blood Urea Nitrogen 8, Creatinine 0.54L, Sodium Level 130L, Potassium Level 3.9, Chloride Level 96L, Carbon Dioxide Level 31, Calcium Level 8.1L CBC/BMP Laboratory Tests 10/28/18 05:50 Red Blood Count 2.53 L, Mean Corpuscular Volume 88.5, Mean Corpuscular Hemoglobin 28.9, Mean Corpuscular Hemoglobin Concent 32.6, Red Cell Distribution Width 15.7 H, Calcium Level 8.1 L Microbiology Microbiology 10/20/18 Urine Culture - Final, Complete Proteus Penneri Enterococcus Faecalis Discharge Medications Scheduled Ascorbic Acid (Acerola C) 500 Mg Tab.chew, 500 MG PO DAILY, (Reported) Benztropine Mesylate (Benztropine Mesylate) 2 Mg Tablet, 4 MG PO BID Cyanocobalamin (Vitamin B-12) (B-12) 500 Mcg Tablet, 500 MCG PO DAILY, (Reported) Famotidine (Famotidine) 40 Mg Tablet, 40 MG PO DAILY, (Reported) Ferrous Sulfate (Ferrous Sulfate) 325 Mg Tablet.dr, 325 MG PO DAILY, (Reported) Fluphenazine HCl (Fluphenazine HCl) 10 Mg Tablet, 20 MG PO QPM, (Reported) Folic Acid (Folic Acid) 0.4 Mg Tablet, 400 MCG PO DAILY, (Reported) Levothyroxine Sodium (Levothyroxine Sodium) 100 Mcg Tablet, 100 MCG PO QAM, (Reported) Lisinopril (Lisinopril) 20 Mg Tablet, 20 MG PO QPM, (Reported) Nystatin (Nystatin Powder) 15 Gm Powder, 1 APLCT TOP DAILY, (Reported) APPLY BETWEEN TOES Potassium Chloride (Potassium Chloride) 10 Meq Capsule.er, 10 MEQ PO DAILY, (Reported) Pravastatin Sodium (Pravastatin Sodium) 40 Mg Tablet, 40 MG PO QPM, (Reported) Sodium Chloride (Sodium Chloride) 1 Gm Tablet, 1 GM PO BID, (Reported) Tamsulosin HCl (Flomax) 0.4 Mg Capsule, 0.4 MG PO QHS Torsemide (Torsemide) 10 Mg Tablet, 20 MG PO QAM, (Reported) Allergies Coded Allergies: vancomycin (Verified Allergy, Mild, rash, 09/13/18) AMANDA LANGLEY MD Oct 28, 2018 19:44
== END 2018-10-28 12:25 | DRG 300 ==
LOC: M ED 12:45 → EDBD 12:45 → M ED INP 16:22 → INTOOBSV 16:22 → M MSPAV 18:33 → OBSVTOIN 10-09 08:23 → M ICU 10-09 11:09 → M MS5PR 10-10 10:45 → M ICU 10-19 04:15 → M MS5PR 10-21 14:20
PROVIDERS: ADMIT General Practice; ATTEND Student in an Organized Health Care Education/Training Program
DX: I87.2 Venous insufficiency (chronic) (peripheral) (principal); D62 Acute posthemorrhagic anemia; E87.1 Hypo-osmolality and hyponatremia; L03.115 Cellulitis of right lower limb; R63.1 Polydipsia; E78.5 Hyperlipidemia, unspecified; I11.9 Hypertensive heart disease without heart failure; E03.9 Hypothyroidism, unspecified; E56.8 Deficiency of other vitamins; F20.9 Schizophrenia, unspecified; N40.0 Benign prostatic hyperplasia without lower urinary tract symptoms; Z79.899 Other long term (current) drug therapy; Z88.1 Allergy status to other antibiotic agents; Z66 Do not resuscitate; Z87.891 Personal history of nicotine dependence; R33.9 Retention of urine, unspecified; K21.9 Gastro-esophageal reflux disease without esophagitis; Z53.29 Procedure and treatment not carried out because of patient's decision for other reasons

== ENCOUNTER → 2018-11-17 | Outpatient (REF) | payer MEDICARE, MEDICAID ==
[~2018-11-17] MED LIST changes: +ASCO500T29 PO; +CEPH500C PO; +FLOM0.4C39 PO; +NYST1POW9 TOP
[2018-11-17 12:00] LABS: APPEARANCE, URINE CLEAR (CLEAR); BACTERIA, URINE AUTO NEGATIVE (NEGATIVE); BILIRUBIN, URINE AUTO NEGATIVE (NEGATIVE); BLOOD, URINE BLOOD NEGATIVE (NEGATIVE); COLOR, URINE STRAW (YELLOW); GLUCOSE, URINE (UA) AUTO NEGATIVE (NEGATIVE); KETONE, URINE AUTO NEGATIVE (NEGATIVE); LEUKOCYTE ESTERASE, URINE AUTO NEGATIVE (NEGATIVE); NITRITE, URINE AUTO NEGATIVE (NEGATIVE); PROTEIN, URINE AUTO NEGATIVE (NEGATIVE); RBC, URINE AUTO 0 /HPF (0-3); SPECIFIC GRAVITY URINE AUTO 1.003 (1.002-1.035); SQUAMOUS EPITHELIAL CELL UR AU 0 /HPF (0-6); UROBILINOGEN, URINE AUTO 0.2 mg/dL (0.0-2.0); WBC, URINE AUTO 0 /HPF (0-3)
== END ==
PROVIDERS: ATTEND Family Medicine
DX: R30.0 Dysuria (principal)

== ENCOUNTER 2018-12-02 12:29 | Emergency (ER) | payer MEDICARE, MEDICAID ==
[~2018-12-02] VITALS: Ht 175.3 cm; Wt 82.7 kg
[2018-12-02 13:07] LABS: BASO # 0.1 10^3/uL (0.0-0.2); BASO % 0.8 % (0.0-1.0); EOS # 0.4 10^3/uL (0.0-0.5); EOS % 5.8 % (0.0-3.0); HEMATOCRIT 27.9 % (42.0-52.0); HEMOGLOBIN 8.8 g/dl (13.5-17.5); LYMPH # 0.8 10^3/uL (1.5-5.0); LYMPH % 12.4 % (24.0-44.0); MEAN CORPUSCULAR HEMOGLOBIN 26.8 pg (27.0-33.0); MEAN CORPUSCULAR HGB CONC 31.5 g/dl (32.0-36.5); MEAN CORPUSCULAR VOLUME 85.1 fl (80.0-96.0); MONO # 0.8 10^3/uL (0.0-0.8); MONO % 12.9 % (0.0-5.0); NEUTROPHILS # 4.1 10^3/uL (1.5-8.5); NEUTROPHILS % 67.4 % (36.0-66.0); PLATELET COUNT, AUTOMATED 263 10^3/uL (150-450); RED BLOOD COUNT 3.28 10^6/uL (4.30-6.10)
[2018-12-02] MEDS ORDERED: BENZ2TAB5 PO (13:22)
[2018-12-02] MEDS ORDERED: FLOM0.4C39 PO (13:22)
[2018-12-02 13:35] LABS: BLOOD UREA NITROGEN 8 MG/DL (7-18); C REACTIVE PROTEIN QUANTITATIV 2.55 MG/DL (0.00-0.30); CALCIUM LEVEL 8.4 MG/DL (8.8-10.2); CARBON DIOXIDE LEVEL 31 MEQ/L (21-32); CHLORIDE LEVEL 97 MEQ/L (98-107); GLOMERULAR FILTRATION RATE > 60.0 (>42); GLUCOSE, FASTING 122 MG/DL (70-100); POTASSIUM SERUM 3.8 MEQ/L (3.5-5.1); SODIUM LEVEL 133 MEQ/L (136-145)
[2018-12-02 15:13] LABS: ERYTHROCYTE SEDIMENTATION RATE 70 mm/hr (0-20)
[2018-12-02] MEDS ORDERED: KEFL500C17 PO (15:21)
[2018-12-02 15:30] VITALS: BP 142/70
== END 2018-12-02 16:40 | disposition home or self-care (01) ==
LOC: EDBD 12:29 → M ED 12:29
DX: L03.115 Cellulitis of right lower limb (principal); I10 Essential (primary) hypertension; E03.9 Hypothyroidism, unspecified; D50.9 Iron deficiency anemia, unspecified; Z86.73 Personal history of transient ischemic attack (TIA), and cerebral infarction without residual deficits; Z87.891 Personal history of nicotine dependence; Z88.1 Allergy status to other antibiotic agents; Z79.899 Other long term (current) drug therapy

== ENCOUNTER 2019-01-07 13:06 | Emergency (ER) | payer MEDICARE, MEDICAID ==
[~2019-01-07] VITALS: Ht 177.8 cm; Wt 82.3 kg
[2019-01-07] MEDS ORDERED: ceFAZolin SOD 1 GM in D5W MINI-BAG PLUS 50 ML IV ONE (14:00)
[2019-01-07 14:19] LABS: BASO % 0.5 % (0.0-1.0); EOS # 0.3 10^3/uL (0.0-0.5); EOS % 3.3 % (0.0-3.0); HEMATOCRIT 29.4 % (42.0-52.0); HEMOGLOBIN 9.3 g/dl (13.5-17.5); LYMPH # 0.6 10^3/uL (1.5-5.0); LYMPH % 8.2 % (24.0-44.0); MEAN CORPUSCULAR HEMOGLOBIN 26.1 pg (27.0-33.0); MEAN CORPUSCULAR HGB CONC 31.6 g/dl (32.0-36.5); MEAN CORPUSCULAR VOLUME 82.4 fl (80.0-96.0); NEUTROPHILS # 5.8 10^3/uL (1.5-8.5); NEUTROPHILS % 74.2 % (36.0-66.0); PLATELET COUNT, AUTOMATED 256 10^3/uL (150-450); RED BLOOD COUNT 3.57 10^6/uL (4.30-6.10); WHITE BLOOD COUNT 7.8 10^3/uL (4.0-10.0)
[2019-01-07 14:41] LABS: ALBUMIN 2.9 GM/DL (3.2-5.2); ALT/SGPT 13 U/L (12-78); BILIRUBIN,DIRECT < 0.1 MG/DL (0.0-0.2); BILIRUBIN,TOTAL 0.2 MG/DL (0.2-1.0); BLOOD UREA NITROGEN 12 MG/DL (7-18); CARBON DIOXIDE LEVEL 31 MEQ/L (21-32); CHLORIDE LEVEL 98 MEQ/L (98-107); CREATININE FOR GFR 0.68 MG/DL (0.70-1.30); GLOMERULAR FILTRATION RATE > 60.0 (>42); GLUCOSE, FASTING 109 MG/DL (70-100); POTASSIUM SERUM 3.8 MEQ/L (3.5-5.1); SODIUM LEVEL 133 MEQ/L (136-145); TOTAL PROTEIN 6.5 GM/DL (6.4-8.2)
--- NOTE | 2019-01-07 15:30 | REP ---
Clinical: Pain and swelling. Technique: Real time amin scale and color Doppler evaluation using linear high frequency transducer. Findings: Ultrasound examination of the right lower extremity deep venous structures from the common femoral vein to the popliteal vein demonstrates normal compressibility, flow, and wave patterns and response to respiration and augmentation. There is no evidence for deep venous thrombosis. Incidental inguinal lymph nodes measure up to 7.5 x 1.8 x 3.0 cm and 4.3 x 1.4 x 2.8 cm. A 1.5 x 1.4 x 1 0.8 cm ovoid hypoechoic lesion is also appreciated which may represent smaller lymph node. Impression: 1. No evidence for deep venous thrombosis. 2. Inguinal adenopathy. Electronically Signed by Bob Abbott MD 01/07/2019 03:21 P
[2019-01-07] MEDS ORDERED: KEFL500C17 PO (16:48)
[2019-01-07 16:52] VITALS: BP 154/69
== END 2019-01-07 17:09 | disposition home or self-care (01) ==
LOC: M ED 13:06
DX: L03.116 Cellulitis of left lower limb (principal); I50.9 Heart failure, unspecified; Z79.899 Other long term (current) drug therapy; Z88.1 Allergy status to other antibiotic agents; Z87.891 Personal history of nicotine dependence
CPT/HCPCS: 80048; 80076; 83605; 85025; 87040; 93971; 96365; 99283; J0690

== ENCOUNTER → 2020-01-22 | Outpatient (REF) | payer MEDICARE, MEDICAID ==
[~2020-01-22] MED LIST changes: -FLUP10TA PO; +FLUP10TA11 PO
== END ==
PROVIDERS: ATTEND Internal Medicine
DX: Z20.828 Contact with and (suspected) exposure to other viral communicable diseases (principal)

== ENCOUNTER → 2020-01-27 | Outpatient (REF) | payer MEDICARE, MEDICAID ==
[2020-01-28 10:35] LABS: INFLUENZA A AMPLIFICATION NEGATIVE (NEGATIVE); INFLUENZA B AMPLIFICATION NEGATIVE (NEGATIVE)
== END ==
PROVIDERS: ATTEND Internal Medicine
DX: Z20.828 Contact with and (suspected) exposure to other viral communicable diseases (principal)
CPT/HCPCS: 87502; U0003

== ENCOUNTER → 2020-02-01 | Outpatient (REF) | payer MEDICARE, MEDICAID | PROVIDERS: ATTEND Internal Medicine | DX: Z20.828 Contact with and (suspected) exposure to other viral communicable diseases (principal) ==

== ENCOUNTER → 2020-02-08 | Outpatient (REF) | payer MEDICARE, MEDICAID | PROVIDERS: ATTEND Internal Medicine | DX: Z20.828 Contact with and (suspected) exposure to other viral communicable diseases (principal) ==

== ENCOUNTER → 2020-02-15 | Outpatient (REF) | payer MEDICARE, MEDICAID | PROVIDERS: ATTEND Internal Medicine | DX: Z11.52 Encounter for screening for COVID-19 (principal) ==

== ENCOUNTER → 2020-02-22 | Outpatient (REF) | payer MEDICARE, MEDICAID | PROVIDERS: ATTEND Internal Medicine | DX: Z20.822 Contact with and (suspected) exposure to COVID-19 (principal) ==

== ENCOUNTER → 2020-02-29 | Outpatient (REF) | payer MEDICARE, MEDICAID | PROVIDERS: ATTEND Internal Medicine | DX: Z20.822 Contact with and (suspected) exposure to COVID-19 (principal) ==

== ENCOUNTER → 2020-03-07 | Outpatient (REF) | payer MEDICARE, MEDICAID | PROVIDERS: ATTEND Internal Medicine | DX: Z11.52 Encounter for screening for COVID-19 (principal) ==

== ENCOUNTER → 2020-03-14 | Outpatient (REF) | payer MEDICARE, MEDICAID | PROVIDERS: ATTEND Internal Medicine | DX: Z20.822 Contact with and (suspected) exposure to COVID-19 (principal) ==

== ENCOUNTER → 2020-03-21 | Outpatient (REF) | payer MEDICARE, MEDICAID ==
[~2020-03-21] MED LIST changes: -LISI-538 PO; +LISI20TA33 PO
== END ==
PROVIDERS: ATTEND Internal Medicine
DX: Z20.822 Contact with and (suspected) exposure to COVID-19 (principal)

== ENCOUNTER → 2020-03-28 | Outpatient (REF) | payer MEDICARE, MEDICAID | PROVIDERS: ATTEND Internal Medicine | DX: Z20.822 Contact with and (suspected) exposure to COVID-19 (principal) ==

== ENCOUNTER → 2020-04-04 | Outpatient (REF) | payer MEDICARE, MEDICAID | PROVIDERS: ATTEND Internal Medicine | DX: Z20.822 Contact with and (suspected) exposure to COVID-19 (principal) ==

== ENCOUNTER → 2020-05-12 | Outpatient (REF) | payer MEDICARE, MEDICAID ==
[~2020-05-12] MED LIST changes: -FOLI400T PO; +FOLI400T13 PO
[2020-05-12 09:22] LABS: BASO # 0.1 10^3/uL (0.0-0.2); BASO % 0.9 % (0.0-1.0); EOS # 0.2 10^3/uL (0.0-0.5); EOS % 3.5 % (0.0-3.0); HEMATOCRIT 38.4 % (42.0-52.0); HEMOGLOBIN 12.3 g/dl (13.5-17.5); LYMPH # 0.8 10^3/uL (1.5-5.0); LYMPH % 13.8 % (24.0-44.0); MEAN CORPUSCULAR HEMOGLOBIN 29.4 pg (27.0-33.0); MEAN CORPUSCULAR VOLUME 91.6 fl (80.0-96.0); MONO # 0.5 10^3/uL (0.0-0.8); MONO % 9.4 % (2.0-8.0); NEUTROPHILS # 3.9 10^3/uL (1.5-8.5); NEUTROPHILS % 71.7 % (36.0-66.0); PLATELET COUNT, AUTOMATED 192 10^3/uL (150-450); RED BLOOD COUNT 4.19 10^6/uL (4.30-6.10); WHITE BLOOD COUNT 5.4 10^3/uL (4.0-10.0)
[2020-05-12 11:08] LABS: ALBUMIN 3.4 GM/DL (3.2-5.2); ALT/SGPT 19 U/L (12-78); BILIRUBIN,TOTAL 0.3 MG/DL (0.2-1.0); BLOOD UREA NITROGEN 17 MG/DL (7-18); CALCIUM LEVEL 8.6 MG/DL (8.8-10.2); CARBON DIOXIDE LEVEL 31 MEQ/L (21-32); CHLORIDE LEVEL 100 MEQ/L (98-107); CHOLESTEROL LEVEL 164 MG/DL (<200); CHOLESTEROL RISK RATIO 3.094 (<5); CREATININE FOR GFR 0.79 MG/DL (0.70-1.30); FERRITIN 14 NG/ML (26-388); FREE T4 0.91 NG/DL (0.76-1.46); GLOMERULAR FILTRATION RATE > 60.0 (>35); GLUCOSE, FASTING 123 MG/DL (70-100); HDL CHOLESTEROL 53 MG/DL (>40); IRON (FE) 91 UG/DL (65-175); LDL CHOLESTEROL 81 MG/DL (<100); MAGNESIUM LEVEL 2.1 MG/DL (1.8-2.4); NON-HDL-C 111 MG/DL; NT-PRO BNP 25 PG/ML (<450); PERCENT SATURATION 25.1 % (19.7-50.0); POTASSIUM SERUM 4.1 MEQ/L (3.5-5.1); SODIUM LEVEL 137 MEQ/L (136-145); TOTAL IRON BINDING CAPACITY 362 UG/DL (250-450); TOTAL PROTEIN 6.7 GM/DL (6.4-8.2); TRIGLYCERIDES LEVEL 151 MG/DL (<150)
== END ==
PROVIDERS: ATTEND Nurse Practitioner Family
DX: E78.5 Hyperlipidemia, unspecified (principal); I10 Essential (primary) hypertension; D50.9 Iron deficiency anemia, unspecified; E03.9 Hypothyroidism, unspecified

== ENCOUNTER → 2020-06-27 | Outpatient (REF) | payer MEDICARE, MEDICAID ==
[2020-06-27 11:19] LABS: THYROID STIMULATING HORMONE 2.08 uIU/ML (0.358-3.740)
== END ==
PROVIDERS: ATTEND Nurse Practitioner Family
DX: E03.9 Hypothyroidism, unspecified (principal)

== ENCOUNTER → 2020-10-26 | Outpatient (REF) | payer MEDICARE, MEDICAID ==
[~2020-10-26] MED LIST changes: +DOXY-443 PO; -DOXY100C37 PO; +LEVO137T2 PO
[2020-10-26 12:30] LABS: FREE T4 1.09 NG/DL (0.76-1.46); THYROID STIMULATING HORMONE 1.5 uIU/ML (0.358-3.740)
== END ==
PROVIDERS: ATTEND Nurse Practitioner Family
DX: E03.9 Hypothyroidism, unspecified (principal)

== ENCOUNTER 2021-01-11 11:30 | Emergency (ER) | payer MEDICARE, MEDICAID ==
[~2021-01-11] VITALS: Ht 177.8 cm; Wt 88.6 kg
[~2021-01-11 11:30] MED LIST changes: -LEVO137T2 PO
[2021-01-11] MEDS ORDERED: LEVO137T2 PO (12:13)
[2021-01-11] MEDS ORDERED: HOME MED LIST COMPLETE! XX SCH (12:20)
[2021-01-11 12:52] LABS: BASO % 0.4 % (0.0-1.0); EOS # 0.2 10^3/uL (0.0-0.5); EOS % 2.9 % (0.0-3.0); HEMATOCRIT 33.8 % (42.0-52.0); HEMOGLOBIN 11.3 g/dl (13.5-17.5); LYMPH # 0.9 10^3/uL (1.5-5.0); LYMPH % 12.4 % (24.0-44.0); MEAN CORPUSCULAR HEMOGLOBIN 30.6 pg (27.0-33.0); MEAN CORPUSCULAR HGB CONC 33.4 g/dl (32.0-36.5); MEAN CORPUSCULAR VOLUME 91.6 fl (80.0-96.0); MONO # 0.9 10^3/uL (0.0-0.8); NEUTROPHILS # 5.4 10^3/uL (1.5-8.5); NEUTROPHILS % 71.2 % (36.0-66.0); PLATELET COUNT, AUTOMATED 187 10^3/uL (150-450); RED BLOOD COUNT 3.69 10^6/uL (4.30-6.10); WHITE BLOOD COUNT 7.5 10^3/uL (4.0-10.0)
[2021-01-11 13:21] LABS: ERYTHROCYTE SEDIMENTATION RATE 42 mm/hr (0-20)
[2021-01-11 13:23] LABS: ALBUMIN 3.2 GM/DL (3.2-5.2); ALT/SGPT 16 U/L (12-78); BILIRUBIN,DIRECT 0.1 MG/DL (0.0-0.2); BILIRUBIN,TOTAL 0.4 MG/DL (0.2-1.0); BLOOD UREA NITROGEN 14 MG/DL (7-18); C REACTIVE PROTEIN QUANTITATIV 0.39 MG/DL (0.00-0.30); CALCIUM LEVEL 8.3 MG/DL (8.8-10.2); CARBON DIOXIDE LEVEL 33 MEQ/L (21-32); CHLORIDE LEVEL 99 MEQ/L (98-107); CREATININE FOR GFR 0.79 MG/DL (0.70-1.30); GLOMERULAR FILTRATION RATE > 60.0 (>35); GLUCOSE, FASTING 81 MG/DL (70-100); POTASSIUM SERUM 4.1 MEQ/L (3.5-5.1); SODIUM LEVEL 137 MEQ/L (136-145); TOTAL PROTEIN 6.5 GM/DL (6.4-8.2)
[2021-01-11] MEDS ORDERED: cefTRIAXone SOD 1 GM in D5W MINI-BAG PLUS 50 ML IV ONE (14:50)
[2021-01-11] MEDS ORDERED: CEPH500C PO (15:37)
[2021-01-11] MEDS ORDERED: NOREPINEPHRINE BITARTRATE 16 MG in D5W 484 ML IV SCH (16:05)
[2021-01-11 17:43] VITALS: BP 162/68
== END 2021-01-11 19:02 | disposition home or self-care (01) ==
LOC: EDBD 11:30 → M ED 11:30
DX: L03.115 Cellulitis of right lower limb (principal); L03.116 Cellulitis of left lower limb; E78.5 Hyperlipidemia, unspecified; E07.9 Disorder of thyroid, unspecified; F20.9 Schizophrenia, unspecified; K21.9 Gastro-esophageal reflux disease without esophagitis; N40.0 Benign prostatic hyperplasia without lower urinary tract symptoms; Z88.1 Allergy status to other antibiotic agents; Z79.899 Other long term (current) drug therapy; Z79.890 Hormone replacement therapy
CPT/HCPCS: 80048; 80076; 83605; 85025; 85652; 86140; 87040; 93041; 93970; 94760; 96365; 96366; 99285; J0696

== ENCOUNTER → 2021-07-26 | Outpatient (REF) | payer MEDICARE, MEDICAID ==
[~2021-07-26] MED LIST changes: +LEVO137T2 PO
[2021-07-26 11:01] LABS: BASO # 0.1 10^3/uL (0.0-0.2); BASO % 0.5 % (0.0-1.0); EOS # 0.3 10^3/uL (0.0-0.5); EOS % 3.3 % (0.0-3.0); HEMATOCRIT 38.7 % (42.0-52.0); HEMOGLOBIN 12.5 g/dl (13.5-17.5); LYMPH # 1.1 10^3/uL (1.5-5.0); LYMPH % 10.7 % (24.0-44.0); MEAN CORPUSCULAR HEMOGLOBIN 29.8 pg (27.0-33.0); MEAN CORPUSCULAR HGB CONC 32.3 g/dl (32.0-36.5); MEAN CORPUSCULAR VOLUME 92.1 fl (80.0-96.0); MONO # 0.8 10^3/uL (0.0-0.8); MONO % 7.9 % (2.0-8.0); NEUTROPHILS # 7.7 10^3/uL (1.5-8.5); NEUTROPHILS % 76.1 % (36.0-66.0); PLATELET COUNT, AUTOMATED 327 10^3/uL (150-450)
[2021-07-26 11:34] LABS: ALT/SGPT 24 U/L (12-78); BILIRUBIN,TOTAL 0.3 MG/DL (0.2-1.0); BLOOD UREA NITROGEN 15 MG/DL (7-18); CALCIUM LEVEL 8.9 MG/DL (8.8-10.2); CARBON DIOXIDE LEVEL 30 MEQ/L (21-32); CHLORIDE LEVEL 100 MEQ/L (98-107); CHOLESTEROL LEVEL 150 MG/DL (<200); CHOLESTEROL RISK RATIO 4.411 (<5); CREATININE FOR GFR 0.78 MG/DL (0.70-1.30); GLOMERULAR FILTRATION RATE > 60.0 (>35); GLUCOSE, FASTING 132 MG/DL (70-100); HDL CHOLESTEROL 34 MG/DL (>40); LDL CHOLESTEROL 86 MG/DL (<100); NON-HDL-C 116 MG/DL; NT-PRO BNP 183 PG/ML (<450); POTASSIUM SERUM 4.4 MEQ/L (3.5-5.1); SODIUM LEVEL 137 MEQ/L (136-145); TOTAL PROTEIN 6.8 GM/DL (6.4-8.2); TRIGLYCERIDES LEVEL 151 MG/DL (<150)
== END ==
PROVIDERS: ATTEND Internal Medicine Addiction Medicine
DX: I11.0 Hypertensive heart disease with heart failure (principal); E03.9 Hypothyroidism, unspecified; E78.00 Pure hypercholesterolemia, unspecified; I50.9 Heart failure, unspecified

== ENCOUNTER → 2021-11-06 | Outpatient (REF) | payer MEDICARE, MEDICAID ==
[2021-11-06 11:16] LABS: HEMATOCRIT 39.1 % (42.0-52.0); MEAN CORPUSCULAR HEMOGLOBIN 30.3 pg (27.0-33.0); MEAN CORPUSCULAR HGB CONC 33.2 g/dl (32.0-36.5); MEAN CORPUSCULAR VOLUME 91.1 fl (80.0-96.0); PLATELET COUNT, AUTOMATED 178 10^3/uL (150-450); RED BLOOD COUNT 4.29 10^6/uL (4.30-6.10); WHITE BLOOD COUNT 5.9 10^3/uL (4.0-10.0)
[2021-11-06 11:43] LABS: BLOOD UREA NITROGEN 15 MG/DL (7-18); CALCIUM LEVEL 8.4 MG/DL (8.8-10.2); CARBON DIOXIDE LEVEL 33 MEQ/L (21-32); CHLORIDE LEVEL 99 MEQ/L (98-107); CREATININE FOR GFR 0.74 MG/DL (0.70-1.30); FERRITIN 43 NG/ML (26-388); FREE T4 1.13 NG/DL (0.76-1.46); GLOMERULAR FILTRATION RATE > 60.0 (>35); GLUCOSE, FASTING 130 MG/DL (70-100); IRON (FE) 96 UG/DL (65-175); PERCENT SATURATION 27.5 % (19.7-50.0); SODIUM LEVEL 136 MEQ/L (136-145); TOTAL IRON BINDING CAPACITY 349 UG/DL (250-450)
[2021-11-09 10:21] LABS: CHOLESTEROL LEVEL 149 MG/DL (<200); CHOLESTEROL RISK RATIO 2.865 (<5); HDL CHOLESTEROL 52 MG/DL (>40); LDL CHOLESTEROL 71 MG/DL (<100); NON-HDL-C 97 MG/DL; TRIGLYCERIDES LEVEL 132 MG/DL (<150)
== END ==
PROVIDERS: ATTEND Physician Assistant Medical
DX: E78.5 Hyperlipidemia, unspecified (principal); I10 Essential (primary) hypertension; D50.9 Iron deficiency anemia, unspecified; Z12.5 Encounter for screening for malignant neoplasm of prostate; E03.9 Hypothyroidism, unspecified
CPT/HCPCS: 36415; 80048; 80061; 82728; 83550; 84439; 84443; 85027; G0103

== ENCOUNTER → 2022-01-16 | Outpatient (REF) | payer MEDICARE, MEDICAID ==
[~2022-01-16] MED LIST changes: -POTA10CA32 PO; +POTA10CA33 PO
[2022-01-16 11:59] LABS: APPEARANCE, URINE MANUAL CLEAR (CLEAR); COLOR, URINE MANUAL YELLOW (YELLOW)
[2022-01-16 12:02] LABS: BILIRUBIN, URINE MANUAL NEGATIVE (NEGATIVE); BLOOD URINE MANUAL NEGATIVE (NEGATIVE); GLUCOSE, URINE (UA) MANUAL NEGATIVE (NEGATIVE); KETONE, URINE MANUAL NEGATIVE (NEGATIVE); LEUKOCYTE ESTERASE, URINE MAN POSITIVE (NEGATIVE); NITRITE, URINE MANUAL NEGATIVE (NEGATIVE); PROTEIN, URINE MANUAL NEGATIVE (NEGATIVE); SPECIFIC GRAVITY,URINE MANUAL 1.015 (1.002-1.035); UROBILINOGEN, URINE MANUAL NORMAL (NORMAL)
[2022-01-16 12:55] LABS: RBC, URINE 0-1 /hpf (0-3)
[2022-01-16 12:56] LABS: BACTERIA, URINE SMALL AMOUNT; HYALINE CAST, URINE NONE SEEN /lpf (0-1); MUCUS, URINE SMALL AMOUNT (NEGATIVE); SQUAMOUS EPITHELIAL CELL URINE SMALL AMOUNT /hpf (SMALL AMT)
== END ==
PROVIDERS: ATTEND Physician Assistant Medical
DX: R32 Unspecified urinary incontinence (principal)

== ENCOUNTER → 2022-04-27 | Outpatient (REF) | payer MEDICARE, MEDICAID ==
[2022-04-27 09:55] LABS: HEMATOCRIT 37.8 % (42.0-52.0); HEMOGLOBIN 12.7 g/dl (13.5-17.5); MEAN CORPUSCULAR HEMOGLOBIN 31.1 pg (27.0-33.0); MEAN CORPUSCULAR HGB CONC 33.6 g/dl (32.0-36.5); MEAN CORPUSCULAR VOLUME 92.6 fl (80.0-96.0); PLATELET COUNT, AUTOMATED 224 10^3/uL (150-450); RED BLOOD COUNT 4.08 10^6/uL (4.30-6.10); WHITE BLOOD COUNT 6.1 10^3/uL (4.0-10.0)
[2022-04-27 10:15] LABS: ALBUMIN 3.5 G/DL (3.2-5.2); ALKALINE PHOSPHATASE 79 U/L (46-116); ALT/SGPT 13 U/L (7.0-40); AST/SGOT 12 U/L (<34); BILIRUBIN,TOTAL 0.5 MG/DL (0.3-1.2); BLOOD UREA NITROGEN 15 MG/DL (9-23); CALCIUM LEVEL 8.5 MG/DL (8.3-10.6); CARBON DIOXIDE LEVEL 33 MMOL/L (20-31); CHLORIDE LEVEL 101 MMOL/L (98-107); CHOLESTEROL LEVEL 153 MG/DL (<200); CHOLESTEROL RISK RATIO 3.76 (<5); GLOMERULAR FILTRATION RATE > 60.0 (>35); GLUCOSE, FASTING 97 MG/DL (74-106); HDL CHOLESTEROL 40.6 MG/DL (>40); IRON (FE) 98 UG/DL (65-175); LDL CHOLESTEROL 84.8 MG/DL (<100); NON-HDL-C 112.4 MG/DL; POTASSIUM SERUM 4.1 MMOL/L (3.5-5.1); SODIUM LEVEL 137 MMOL/L (136-145); TOTAL PROTEIN 6.5 G/DL (5.7-8.2); TRIGLYCERIDES LEVEL 138 MG/DL (<150)
[2022-04-27 10:16] LABS: FREE T4 1.15 NG/DL (0.89-1.76)
[2022-04-27 10:17] LABS: FERRITIN 68.9 NG/ML (10.5-307.3)
== END ==
PROVIDERS: ATTEND Physician Assistant Medical
DX: Z12.5 Encounter for screening for malignant neoplasm of prostate (principal); E03.9 Hypothyroidism, unspecified; D50.9 Iron deficiency anemia, unspecified; I10 Essential (primary) hypertension
CPT/HCPCS: 36415; 80053; 80061; 82728; 83540; 84439; 85027; G0103

== ENCOUNTER → 2022-07-11 | Outpatient (REF) | payer MEDICARE, MEDICAID ==
[~2022-07-11] MED LIST changes: +BENZ2TAB48 PO; -BENZ2TAB5 PO
[2022-07-11 11:51] LABS: BASO # 0.1 10^3/uL (0.0-0.2); BASO % 0.9 % (0.0-1.0); EOS # 0.4 10^3/uL (0.0-0.5); EOS % 6.3 % (0.0-3.0); HEMATOCRIT 37.2 % (42.0-52.0); HEMOGLOBIN 12.3 g/dl (13.5-17.5); LYMPH % 14.8 % (24.0-44.0); MEAN CORPUSCULAR HEMOGLOBIN 30.3 pg (27.0-33.0); MEAN CORPUSCULAR HGB CONC 33.1 g/dl (32.0-36.5); MEAN CORPUSCULAR VOLUME 91.6 fl (80.0-96.0); MONO # 0.7 10^3/uL (0.0-0.8); MONO % 11.6 % (2.0-8.0); NEUTROPHILS # 4.2 10^3/uL (1.5-8.5); NEUTROPHILS % 65.9 % (36.0-66.0); PLATELET COUNT, AUTOMATED 172 10^3/uL (150-450); RED BLOOD COUNT 4.06 10^6/uL (4.30-6.10); WHITE BLOOD COUNT 6.4 10^3/uL (4.0-10.0)
[2022-07-11 12:08] LABS: TOTAL 25(OH) VITAMIN D 60.2 NG/ML (20.0-100.0)
== END ==
PROVIDERS: ATTEND Physician Assistant Medical
DX: R97.20 Elevated prostate specific antigen [PSA] (principal); E55.9 Vitamin D deficiency, unspecified; D50.9 Iron deficiency anemia, unspecified; Z79.899 Other long term (current) drug therapy
CPT/HCPCS: 36415; 82306; 85025; G0103

== ENCOUNTER → 2022-08-13 | Outpatient (REF) | payer MEDICARE, MEDICAID ==
[~2022-08-13] MED LIST changes: -POTA10CA33 PO; +POTA10CA60 PO
[2022-08-13 15:43] LABS: APPEARANCE, URINE CLEAR (CLEAR); BACTERIA, URINE AUTO NEGATIVE (NEGATIVE); BILIRUBIN, URINE AUTO NEGATIVE (NEGATIVE); BLOOD, URINE BLOOD NEGATIVE (NEGATIVE); COLOR, URINE YELLOW (YELLOW); GLUCOSE, URINE (UA) AUTO NEGATIVE (NEGATIVE); KETONE, URINE AUTO NEGATIVE (NEGATIVE); LEUKOCYTE ESTERASE, URINE AUTO 1+ (NEGATIVE); NITRITE, URINE AUTO NEGATIVE (NEGATIVE); PROTEIN, URINE AUTO NEGATIVE (NEGATIVE); RBC, URINE AUTO 1 /HPF (0-3); SPECIFIC GRAVITY URINE AUTO 1.009 (1.002-1.035); SQUAMOUS EPITHELIAL CELL UR AU 0 /HPF (0-6); UROBILINOGEN, URINE AUTO 0.2 mg/dL (0.0-2.0); WBC, URINE AUTO 6 /HPF (0-3)
== END ==
DX: R82.998 Other abnormal findings in urine (principal); R32 Unspecified urinary incontinence

== ENCOUNTER → 2022-11-14 | Outpatient (REF) | payer MEDICARE, MEDICAID ==
[2022-11-14 10:43] LABS: HEMATOCRIT 39.2 % (42.0-52.0); HEMOGLOBIN 13.1 g/dl (13.5-17.5); MEAN CORPUSCULAR HGB CONC 33.4 g/dl (32.0-36.5); MEAN CORPUSCULAR VOLUME 92.9 fl (80.0-96.0); RED BLOOD COUNT 4.22 10^6/uL (4.30-6.10)
[2022-11-14 10:59] LABS: PLATELET COUNT, AUTOMATED 135 10^3/uL (150-450)
[2022-11-14 11:11] LABS: IRON (FE) 81 UG/DL (65-175); PERCENT SATURATION 26.5 % (19.7-50.0); TOTAL IRON BINDING CAPACITY 306 UG/DL (250-425)
[2022-11-14 11:12] LABS: ALBUMIN 3.5 G/DL (3.2-5.2); ALKALINE PHOSPHATASE 73 U/L (46-116); ALT/SGPT 18 U/L (7.0-40); AST/SGOT 11 U/L (<34); BILIRUBIN,TOTAL 0.5 MG/DL (0.3-1.2); BLOOD UREA NITROGEN 16 MG/DL (9-23); CALCIUM LEVEL 8.5 MG/DL (8.3-10.6); CARBON DIOXIDE LEVEL 33 MMOL/L (20-31); CHLORIDE LEVEL 103 MMOL/L (98-107); CHOLESTEROL LEVEL 164 MG/DL (<200); CHOLESTEROL RISK RATIO 4.38 (<5); CREATININE FOR GFR 0.73 MG/DL (0.70-1.30); FERRITIN 59.4 NG/ML (10.5-307.3); FREE T4 1.28 NG/DL (0.89-1.76); GLOMERULAR FILTRATION RATE > 60.0 (>35); GLUCOSE, FASTING 93 MG/DL (74-106); HDL CHOLESTEROL 37.4 MG/DL (>40); LDL CHOLESTEROL 89.2 MG/DL (<100); NON-HDL-C 126.6 MG/DL; SODIUM LEVEL 141 MMOL/L (136-145); TOTAL 25(OH) VITAMIN D 68.3 NG/ML (20.0-100.0); TOTAL PROTEIN 6.5 G/DL (5.7-8.2); TRIGLYCERIDES LEVEL 187 MG/DL (<150)
[2022-11-14 11:13] LABS: THYROID STIMULATING HORMONE 2.169 uIU/ML (0.55-4.78)
== END ==
PROVIDERS: ATTEND Physician Assistant Medical
DX: E03.9 Hypothyroidism, unspecified (principal); E55.9 Vitamin D deficiency, unspecified; I10 Essential (primary) hypertension; D50.9 Iron deficiency anemia, unspecified; Z79.899 Other long term (current) drug therapy

== ENCOUNTER → 2023-07-23 | Outpatient (CLI) | payer MEDICARE, MEDICAID ==
[~2023-07-23] MED LIST changes: +DOXY-323 PO; -DOXY-443 PO; -POTA10CA60 PO; +POTA10CA70 PO
== END ==
LOC: M WHC 15:00
PROVIDERS: ATTEND Physician Assistant
DX: M79.661 Pain in right lower leg (principal); R60.0 Localized edema

== ENCOUNTER → 2023-07-29 | Outpatient (REF) ==
[2023-07-29 12:03] LABS: HEMATOCRIT 41.9 % (42.0-52.0); HEMOGLOBIN 13.9 g/dl (13.5-17.5); MEAN CORPUSCULAR HEMOGLOBIN 30.3 pg (27.0-33.0); MEAN CORPUSCULAR HGB CONC 33.2 g/dl (32.0-36.5); MEAN CORPUSCULAR VOLUME 91.5 fl (80.0-96.0); PLATELET COUNT, AUTOMATED 188 10^3/uL (150-450); RED BLOOD COUNT 4.58 10^6/uL (4.30-6.10); WHITE BLOOD COUNT 7.6 10^3/uL (4.0-10.0)
[2023-07-29 12:24] LABS: BLOOD UREA NITROGEN 18 MG/DL (9-23); CALCIUM LEVEL 8.7 MG/DL (8.3-10.6); CARBON DIOXIDE LEVEL 32 MMOL/L (20-31); CHLORIDE LEVEL 102 MMOL/L (98-107); CREATININE FOR GFR 0.78 MG/DL (0.70-1.30); GLOMERULAR FILTRATION RATE > 60.0 (>35); GLUCOSE, FASTING 130 MG/DL (74-106); POTASSIUM SERUM 4.1 MMOL/L (3.5-5.1); SODIUM LEVEL 138 MMOL/L (136-145)
[2023-07-29 12:27] LABS: TOTAL 25(OH) VITAMIN D 71.1 NG/ML (20.0-100.0)
== END ==
PROVIDERS: ATTEND Physician Assistant
DX: I10 Essential (primary) hypertension (principal)

== ENCOUNTER → 2023-08-05 | Outpatient (REF) ==
[2023-08-05 11:18] LABS: HEMATOCRIT 38.4 % (42.0-52.0); HEMOGLOBIN 12.8 g/dl (13.5-17.5); MEAN CORPUSCULAR HEMOGLOBIN 30.5 pg (27.0-33.0); MEAN CORPUSCULAR HGB CONC 33.3 g/dl (32.0-36.5); MEAN CORPUSCULAR VOLUME 91.6 fl (80.0-96.0); PLATELET COUNT, AUTOMATED 172 10^3/uL (150-450); RED BLOOD COUNT 4.19 10^6/uL (4.30-6.10)
[2023-08-05 11:48] LABS: BLOOD UREA NITROGEN 17 MG/DL (9-23); CALCIUM LEVEL 8.4 MG/DL (8.3-10.6); CARBON DIOXIDE LEVEL 32 MMOL/L (20-31); CHLORIDE LEVEL 101 MMOL/L (98-107); GLOMERULAR FILTRATION RATE > 60.0 (>35); GLUCOSE, FASTING 82 MG/DL (74-106); POTASSIUM SERUM 4.1 MMOL/L (3.5-5.1); SODIUM LEVEL 139 MMOL/L (136-145)
== END ==
PROVIDERS: ATTEND Physician Assistant
DX: I10 Essential (primary) hypertension (principal)

== ENCOUNTER → 2023-09-12 | Outpatient (REF) | payer MEDICARE, MEDICAID | PROVIDERS: ATTEND Physician Assistant | DX: R19.7 Diarrhea, unspecified (principal) ==

== ENCOUNTER → 2023-09-13 | Outpatient (REF) | payer MEDICARE, MEDICAID | PROVIDERS: ATTEND Physician Assistant | DX: R19.7 Diarrhea, unspecified (principal); Z53.8 Procedure and treatment not carried out for other reasons ==

== ENCOUNTER → 2023-10-21 | Outpatient (REF) | payer MEDICARE, MEDICAID ==
[2023-10-21 08:41] LABS: HEMATOCRIT 34.5 % (42.0-52.0); HEMOGLOBIN 11.6 g/dl (13.5-17.5); MEAN CORPUSCULAR HEMOGLOBIN 31.5 pg (27.0-33.0); MEAN CORPUSCULAR HGB CONC 33.6 g/dl (32.0-36.5); MEAN CORPUSCULAR VOLUME 93.8 fl (80.0-96.0); PLATELET COUNT, AUTOMATED 203 10^3/uL (150-450); RED BLOOD COUNT 3.68 10^6/uL (4.30-6.10); WHITE BLOOD COUNT 8.2 10^3/uL (4.0-10.0)
[2023-10-21 09:15] LABS: BLOOD UREA NITROGEN 17 MG/DL (9-23); CALCIUM LEVEL 8.5 MG/DL (8.3-10.6); CARBON DIOXIDE LEVEL 30 MMOL/L (20-31); CHLORIDE LEVEL 98 MMOL/L (98-107); GLOMERULAR FILTRATION RATE > 60.0 (>35); GLUCOSE, FASTING 114 MG/DL (74-106); POTASSIUM SERUM 4.3 MMOL/L (3.5-5.1); SODIUM LEVEL 133 MMOL/L (136-145)
== END ==
PROVIDERS: ATTEND Physician Assistant
DX: I10 Essential (primary) hypertension (principal)

== ENCOUNTER → 2023-11-04 | Outpatient (REF) | payer MEDICARE, MEDICAID ==
[~2023-11-04] MED LIST changes: -DOXY-323 PO; +DOXY-441 PO; +NYST1POW3 TOP; -NYST1POW9 TOP
== END ==
PROVIDERS: ATTEND Physician Assistant Medical
DX: E03.9 Hypothyroidism, unspecified (principal); E55.9 Vitamin D deficiency, unspecified; I10 Essential (primary) hypertension; D50.9 Iron deficiency anemia, unspecified; E78.5 Hyperlipidemia, unspecified; Z12.5 Encounter for screening for malignant neoplasm of prostate; Z53.9 Procedure and treatment not carried out, unspecified reason

== ENCOUNTER → 2024-01-22 | Outpatient (REF) | payer MEDICARE, MEDICAID ==
[2024-01-22 13:21] LABS: HEMATOCRIT 37.9 % (42.0-52.0); HEMOGLOBIN 12.8 g/dl (13.5-17.5); MEAN CORPUSCULAR HEMOGLOBIN 30.9 pg (27.0-33.0); MEAN CORPUSCULAR HGB CONC 33.8 g/dl (32.0-36.5); MEAN CORPUSCULAR VOLUME 91.5 fl (80.0-96.0); PLATELET COUNT, AUTOMATED 211 10^3/uL (150-450); RED BLOOD COUNT 4.14 10^6/uL (4.30-6.10); WHITE BLOOD COUNT 7.7 10^3/uL (4.0-10.0)
[2024-01-22 13:54] LABS: BLOOD UREA NITROGEN 14 MG/DL (9-23); CALCIUM LEVEL 8.7 MG/DL (8.3-10.6); CARBON DIOXIDE LEVEL 32 MMOL/L (20-31); CHLORIDE LEVEL 98 MMOL/L (98-107); CREATININE FOR GFR 0.77 MG/DL (0.70-1.30); GLOMERULAR FILTRATION RATE > 60.0 (>35); GLUCOSE, FASTING 79 MG/DL (74-106); POTASSIUM SERUM 3.8 MMOL/L (3.5-5.1); SODIUM LEVEL 138 MMOL/L (136-145)
[2024-01-22 13:56] LABS: TOTAL 25(OH) VITAMIN D 75.8 NG/ML (20.0-100.0)
== END ==
PROVIDERS: ATTEND Physician Assistant
DX: I10 Essential (primary) hypertension (principal); E55.9 Vitamin D deficiency, unspecified

== ENCOUNTER 2024-02-13 17:36 | Inpatient (IN) | payer MEDICARE, MEDICAID ==
[~2024-02-13] VITALS: Ht 180.3 cm; Wt 90.0 kg
[~2024-02-13 17:36] MED LIST changes: -ACET-910 PO; -CEFD300CAP PO; -LORA-622 PO; -POTA1TAB23 PO; -REFR0.5D8 OU; -VITA1CAP25 PO
[2024-02-13] MEDS ORDERED: ACETAMINOPHEN 325 MG TAB PO PRN (20:15)
[2024-02-13] MEDS ORDERED: LORA-622 PO (20:17)
[2024-02-13] MEDS ORDERED: POTA1TAB23 PO (20:17)
[2024-02-13] MEDS: ACETAMINOPHEN *IV* 1,000 MG in IV 1 EA IV ONE (20:18)
[2024-02-13] MEDS: oxyCODONE 5MG TAB PO ONE (20:19)
[2024-02-13 20:24] LABS: BASO % 0.4 % (0.0-1.0); EOS # 0.2 10^3/uL (0.0-0.5); EOS % 1.5 % (0.0-3.0); HEMATOCRIT 34.8 % (42.0-52.0); HEMOGLOBIN 11.9 g/dl (13.5-17.5); LYMPH # 1.2 10^3/uL (1.5-5.0); LYMPH % 10.4 % (24.0-44.0); MEAN CORPUSCULAR HEMOGLOBIN 30.5 pg (27.0-33.0); MEAN CORPUSCULAR HGB CONC 34.2 g/dl (32.0-36.5); MEAN CORPUSCULAR VOLUME 89.2 fl (80.0-96.0); MONO # 1.4 10^3/uL (0.0-0.8); MONO % 12.7 % (2.0-8.0); NEUTROPHILS # 8.3 10^3/uL (1.5-8.5); NEUTROPHILS % 73.9 % (36.0-66.0); PLATELET COUNT, AUTOMATED 192 10^3/uL (150-450); WHITE BLOOD COUNT 11.2 10^3/uL (4.0-10.0)
[2024-02-13] MEDS ORDERED: REFR0.5D8 OU (20:25)
[2024-02-13] MEDS ORDERED: SODI1TAB12 PO (20:25)
[2024-02-13] MEDS ORDERED: VITA1CAP25 PO (20:25)
[2024-02-13] MEDS ORDERED: ACET-910 PO (20:25)
[2024-02-13] MEDS ORDERED: HOME MED LIST COMPLETE! XX SCH (20:30)
[2024-02-13 20:52] LABS: BLOOD UREA NITROGEN 16 MG/DL (9-23); CALCIUM LEVEL 8.9 MG/DL (8.3-10.6); CARBON DIOXIDE LEVEL 31 MMOL/L (20-31); CHLORIDE LEVEL 100 MMOL/L (98-107); CREATININE FOR GFR 0.68 MG/DL (0.70-1.30); GLOMERULAR FILTRATION RATE > 60.0 (>35); GLUCOSE, FASTING 137 MG/DL (74-106); MAGNESIUM LEVEL 1.8 MG/DL (1.8-2.4); POTASSIUM SERUM 4.1 MMOL/L (3.5-5.1); SODIUM LEVEL 137 MMOL/L (136-145)
[2024-02-13 21:26] LABS: APPEARANCE, URINE CLEAR (CLEAR); BACTERIA, URINE AUTO NEGATIVE (NEGATIVE); BILIRUBIN, URINE AUTO NEGATIVE (NEGATIVE); BLOOD, URINE BLOOD NEGATIVE (NEGATIVE); COLOR, URINE YELLOW (YELLOW); GLUCOSE, URINE (UA) AUTO NEGATIVE (NEGATIVE); KETONE, URINE AUTO NEGATIVE (NEGATIVE); LEUKOCYTE ESTERASE, URINE AUTO NEGATIVE (NEGATIVE); NITRITE, URINE AUTO NEGATIVE (NEGATIVE); PROTEIN, URINE AUTO NEGATIVE (NEGATIVE); RBC, URINE AUTO 1 /HPF (0-3); SPECIFIC GRAVITY URINE AUTO 1.016 (1.002-1.035); SQUAMOUS EPITHELIAL CELL UR AU 1 /HPF (0-6); WBC, URINE AUTO 1 /HPF (0-3)
[2024-02-13] MEDS ORDERED: MOM 30ML SUSPENSION UDC PO PRN (22:15)
[2024-02-13] MEDS ORDERED: MAALOX 30 ML SUSP *UDC PO PRN (22:15)
[2024-02-13 22:30] VITALS: BP 139/63
[2024-02-13] MEDS: TAMSULOSIN 0.4 MG CAP PO SCH (22:30)
[2024-02-13] MEDS: PRAVASTATIN 20 MG TAB PO SCH (22:30)
[2024-02-13] MEDS: LR 1,000 ML IV SCH (22:31)
[2024-02-14] VITALS (10 sets, daily range): BP systolic 103–161; BP diastolic 52–89; TEMP 97.8–98.2; O2SAT 90–96
[2024-02-14] MEDS: BENZTROPINE 2 MG TAB PO SCH (00:09)
[2024-02-14] MEDS: fluPHENAZine 5MG TABLET PO SCH (00:10)
[2024-02-14] MEDS: POLYVINYL ALCOHOL OPHTH SOLN 15ML (LIQUITEARS) OU SCH (00:10)
[2024-02-14] MEDS: LEVOTHYROXINE 137MCG TABLET (0.137MG) PO SCH (06:09)
[2024-02-14 06:14] LABS: HEMOGLOBIN 11.3 g/dl (13.5-17.5); MEAN CORPUSCULAR HEMOGLOBIN 30.2 pg (27.0-33.0); MEAN CORPUSCULAR HGB CONC 33.2 g/dl (32.0-36.5); MEAN CORPUSCULAR VOLUME 90.9 fl (80.0-96.0); PLATELET COUNT, AUTOMATED 184 10^3/uL (150-450); RED BLOOD COUNT 3.74 10^6/uL (4.30-6.10); WHITE BLOOD COUNT 8.2 10^3/uL (4.0-10.0)
[2024-02-14 06:31] LABS: ALBUMIN 2.9 G/DL (3.2-5.2); ALKALINE PHOSPHATASE 67 U/L (40-129); ALT/SGPT 12 U/L (7.0-40); AST/SGOT 28 U/L (<34); BILIRUBIN,TOTAL 0.7 MG/DL (0.3-1.2); BLOOD UREA NITROGEN 12 MG/DL (9-23); CALCIUM LEVEL 8.8 MG/DL (8.3-10.6); CARBON DIOXIDE LEVEL 32 MMOL/L (20-31); CHLORIDE LEVEL 101 MMOL/L (98-107); CREATININE FOR GFR 0.59 MG/DL (0.70-1.30); GLOMERULAR FILTRATION RATE > 60.0 (>35); GLUCOSE, FASTING 112 MG/DL (74-106); MAGNESIUM LEVEL 1.9 MG/DL (1.8-2.4); SODIUM LEVEL 138 MMOL/L (136-145); TOTAL PROTEIN 5.6 G/DL (5.7-8.2)
[2024-02-14] MEDS: CYANOCOBALAMIN 500 MCG TAB PO SCH (09:00)
[2024-02-14] MEDS ORDERED: TORSEMIDE 20 MG TAB PO SCH (09:00)
[2024-02-14] MEDS: DOCUSATE SODIUM 100MG CAPSULE PO SCH (09:00)
[2024-02-14] MEDS: POTASSIUM CHLORIDE 10MEQ SR TABLET PO SCH (09:42)
[2024-02-14] MEDS: LORATADINE 10 MG TAB PO SCH (09:42)
[2024-02-14] MEDS: BENZTROPINE 1 MG TAB PO SCH (09:42)
[2024-02-14] MEDS: PANTOPRAZOLE 40MG VIAL IV SCH (09:42)
[2024-02-14] MEDS: FERROUS SULFATE 325MG TAB PO SCH (09:42)
[2024-02-14] MEDS ORDERED: propofoL 200 MG/20 ML VIAL As Ordered ONE (15:12)
[2024-02-14] MEDS ORDERED: LIDOCAINE 2% 100MG/5ML SDV (FOR ANES.) As Ordered ONE (15:12)
[2024-02-14] MEDS ORDERED: ONDANSETRON 4MG 2ML VIAL As Ordered ONE (15:12)
[2024-02-14] MEDS ORDERED: fentaNYL 100 MCG/2 ML INJECTION As Ordered ONE (15:12)
[2024-02-14] MEDS ORDERED: ETOMIDATE INJ 20MG/10ML VIAL As Ordered ONE (15:12)
[2024-02-14] MEDS ORDERED: ACETAMINOPHEN 1000MG/100ML IV BAG As Ordered ONE (15:18)
[2024-02-14] MEDS: ceFAZolin 2 GM/D5W 50 ML IV BAG As Ordered ONE (15:45)
[2024-02-14] MEDS ORDERED: HYDROmorphone HCL 2MG/ML 1ML VIAL As Ordered ONE (16:56)
[2024-02-14] MEDS ORDERED: ONDANSETRON 4MG 2ML VIAL IV PRN (17:15)
[2024-02-14] MEDS ORDERED: fentaNYL 100 MCG/2 ML INJECTION IV PRN (17:15)
[2024-02-14] MEDS ORDERED: oxyCODONE 5MG TAB PO PRN (17:15)
[2024-02-14] MEDS ORDERED: SENNA 8.6 MG TAB (SENOKOT) PO PRN (17:20)
[2024-02-14] MEDS: HYDROMORPHONE HCL 0.5 MG/ 0.5 ML SYRINGE IV PRN (17:46)
[2024-02-14] MEDS: ceFAZolin SOD 2 GM in IV 1 EA IV SCH (23:39)
[2024-02-15 02:48] VITALS: BP 106/62; TEMP 97.9; O2SAT 93
[2024-02-15 06:56] VITALS: BP 105/59; TEMP 98.2; O2SAT 94
[2024-02-15] MEDS: ASCORBIC ACID 500 MG TAB PO SCH (09:22)
[2024-02-15 09:40] LABS: HEMATOCRIT 32.9 % (42.0-52.0); HEMOGLOBIN 10.9 g/dl (13.5-17.5); MEAN CORPUSCULAR HEMOGLOBIN 30.1 pg (27.0-33.0); MEAN CORPUSCULAR HGB CONC 33.1 g/dl (32.0-36.5); MEAN CORPUSCULAR VOLUME 90.9 fl (80.0-96.0); PLATELET COUNT, AUTOMATED 212 10^3/uL (150-450); RED BLOOD COUNT 3.62 10^6/uL (4.30-6.10); WHITE BLOOD COUNT 12.6 10^3/uL (4.0-10.0)
[2024-02-15 10:09] LABS: BLOOD UREA NITROGEN 13 MG/DL (9-23); CALCIUM LEVEL 8.4 MG/DL (8.3-10.6); CARBON DIOXIDE LEVEL 32 MMOL/L (20-31); CHLORIDE LEVEL 101 MMOL/L (98-107); GLOMERULAR FILTRATION RATE > 60.0 (>35); GLUCOSE, FASTING 140 MG/DL (74-106); POTASSIUM SERUM 4.2 MMOL/L (3.5-5.1); SODIUM LEVEL 139 MMOL/L (136-145)
[2024-02-15] MEDS ORDERED: KETOROLAC 30 MG/ML 1ML VIAL IV PRN ×2 (11:15)
[2024-02-15] MEDS ORDERED: oxyCODONE 5MG TAB PO PRN (11:20)
[2024-02-15] MEDS ORDERED: IBUPROFEN 800 MG TAB PO PRN (11:20)
[2024-02-15 12:00] VITALS: BP 107/58; TEMP 98.8; O2SAT 90
[2024-02-15] MEDS: ENOXAPARIN 40MG/0.4ML SYRINGE (J1650 PER 10MG) SC SCH (12:26)
[2024-02-15] MEDS: ACETAMINOPHEN 500 MG TAB PO SCH (12:27)
[2024-02-15 16:00] VITALS: BP 108/58; TEMP 97.7; O2SAT 93
[2024-02-15 20:57] VITALS: BP 110/59; TEMP 98.1; O2SAT 94
[2024-02-16 04:29] VITALS: BP 142/84; TEMP 98.2; O2SAT 94
[2024-02-16 08:00] VITALS: BP 141/86; TEMP 98.1; O2SAT 96
[2024-02-16] MEDS: CEFDINIR 300 MG CAP (OMNICEF) PO SCH (09:11)
[2024-02-16] MEDS: FUROSEMIDE 40MG/4ML VIAL IV ONE (11:34)
[2024-02-16 11:38] VITALS: O2SAT 96
[2024-02-16 12:00] VITALS: BP 151/79; TEMP 98.2; O2SAT 93
[2024-02-16 20:14] VITALS: BP 135/74; TEMP 97.9; O2SAT 86; O2SAT 91
[2024-02-16] MEDS: BENZTROPINE 2 MG TAB PO SCH (20:33)
[2024-02-17 04:00] VITALS: BP 158/71; TEMP 97.3; O2SAT 95
[2024-02-17] MEDS: IBUPROFEN 400MG TAB PO PRN (09:30)
[2024-02-17] MEDS ORDERED: CEFD300CAP PO (09:39)
== END 2024-02-17 12:18 | DRG 512 ==
LOC: EDBD 17:36 → M ED 17:36 → M ED INP 20:11 → M MSPAV 02-14 00:17
PROVIDERS: ADMIT Student in an Organized Health Care Education/Training Program; ATTEND Student in an Organized Health Care Education/Training Program
PROC: 0RSM04Z Reposition Left Elbow Joint with Internal Fixation Device, Open Approach (ICD-10-PCS; principal; 2024-02-14 17:00)
DX: S52.022A Displaced fracture of olecranon process without intraarticular extension of left ulna, initial encounter for closed fracture (principal); W19.XXXA Unspecified fall, initial encounter; Y92.9 Unspecified place or not applicable; Y93.9 Activity, unspecified; I10 Essential (primary) hypertension; E03.9 Hypothyroidism, unspecified; E78.5 Hyperlipidemia, unspecified; N40.0 Benign prostatic hyperplasia without lower urinary tract symptoms; F20.9 Schizophrenia, unspecified; I87.2 Venous insufficiency (chronic) (peripheral); Z79.890 Hormone replacement therapy; Z79.899 Other long term (current) drug therapy; Z88.1 Allergy status to other antibiotic agents; Z87.891 Personal history of nicotine dependence; Z86.73 Personal history of transient ischemic attack (TIA), and cerebral infarction without residual deficits; D50.9 Iron deficiency anemia, unspecified; R09.02 Hypoxemia

== ENCOUNTER → 2024-02-13 | Outpatient (REF) | payer MEDICAID, MEDICARE ==
[~2024-02-13] MED LIST changes: +ACET-910 PO; +CEFD300CAP PO; +LORA-622 PO; +POTA1TAB23 PO; +REFR0.5D8 OU; +VITA1CAP25 PO
== END ==
LOC: M PLAIMG 13:23 → EDSTATUS 02-18 08:39
PROVIDERS: ATTEND Internal Medicine
DX: M19.032 Primary osteoarthritis, left wrist (principal); S52.025A Nondisplaced fracture of olecranon process without intraarticular extension of left ulna, initial encounter for closed fracture; Y93.9 Activity, unspecified; Y92.9 Unspecified place or not applicable

== ENCOUNTER → 2024-02-24 | Outpatient (REF) ==
[~2024-02-24] MED LIST changes: +ACET-910 PO; +CEFD300CAP PO; +LORA-622 PO; +POTA1TAB23 PO; +REFR0.5D8 OU; +VITA1CAP25 PO
[2024-02-24 10:32] LABS: HEMOGLOBIN 11.5 g/dl (13.5-17.5); MEAN CORPUSCULAR HEMOGLOBIN 29.8 pg (27.0-33.0); MEAN CORPUSCULAR HGB CONC 32.9 g/dl (32.0-36.5); MEAN CORPUSCULAR VOLUME 90.7 fl (80.0-96.0); PLATELET COUNT, AUTOMATED 330 10^3/uL (150-450); RED BLOOD COUNT 3.86 10^6/uL (4.30-6.10); WHITE BLOOD COUNT 9.5 10^3/uL (4.0-10.0)
[2024-02-24 10:50] LABS: BLOOD UREA NITROGEN 15 MG/DL (9-23); CALCIUM LEVEL 8.5 MG/DL (8.3-10.6); CARBON DIOXIDE LEVEL 31 MMOL/L (20-31); CHLORIDE LEVEL 97 MMOL/L (98-107); CREATININE FOR GFR 0.76 MG/DL (0.70-1.30); GLOMERULAR FILTRATION RATE > 60.0 (>35); GLUCOSE, FASTING 91 MG/DL (74-106); POTASSIUM SERUM 4.5 MMOL/L (3.5-5.1); SODIUM LEVEL 133 MMOL/L (136-145)
== END ==
PROVIDERS: ATTEND Physician Assistant
DX: E03.9 Hypothyroidism, unspecified (principal); D64.9 Anemia, unspecified; I10 Essential (primary) hypertension

== ENCOUNTER → 2024-02-27 | Outpatient (REF) | payer MEDICAID, MEDICARE | LOC: M SOG 11:24 → EDSTATUS 02-28 08:17 | PROVIDERS: ATTEND Orthopaedic Surgery | DX: M25.522 Pain in left elbow (principal); Z47.89 Encounter for other orthopedic aftercare ==

== ENCOUNTER → 2024-03-02 | Outpatient (REF) | PROVIDERS: ATTEND Physician Assistant | DX: I10 Essential (primary) hypertension (principal); Z53.9 Procedure and treatment not carried out, unspecified reason ==

== ENCOUNTER → 2024-03-04 | Outpatient (REF) ==
[2024-03-04 15:43] LABS: BASO # 0.1 10^3/uL (0.0-0.2); BASO % 0.7 % (0.0-1.0); EOS # 0.2 10^3/uL (0.0-0.5); EOS % 3.3 % (0.0-3.0); HEMATOCRIT 34.4 % (42.0-52.0); HEMOGLOBIN 11.5 g/dl (13.5-17.5); LYMPH # 0.8 10^3/uL (1.5-5.0); LYMPH % 11.1 % (24.0-44.0); MEAN CORPUSCULAR HEMOGLOBIN 30.7 pg (27.0-33.0); MEAN CORPUSCULAR HGB CONC 33.4 g/dl (32.0-36.5); MONO # 0.7 10^3/uL (0.0-0.8); NEUTROPHILS # 5.4 10^3/uL (1.5-8.5); NEUTROPHILS % 74.1 % (36.0-66.0); PLATELET COUNT, AUTOMATED 274 10^3/uL (150-450); RED BLOOD COUNT 3.74 10^6/uL (4.30-6.10); WHITE BLOOD COUNT 7.3 10^3/uL (4.0-10.0)
[2024-03-04 16:18] LABS: ERYTHROCYTE SEDIMENTATION RATE 19 mm/hr (0-20)
[2024-03-04 16:29] LABS: BLOOD UREA NITROGEN 15 MG/DL (9-23); C REACTIVE PROTEIN QUANTITATIV < 0.50 MG/DL (<1.0); CALCIUM LEVEL 8.2 MG/DL (8.3-10.6); CARBON DIOXIDE LEVEL 29 MMOL/L (20-31); CHLORIDE LEVEL 95 MMOL/L (98-107); CREATININE FOR GFR 0.74 MG/DL (0.70-1.30); GLOMERULAR FILTRATION RATE > 60.0 (>35); GLUCOSE, FASTING 134 MG/DL (74-106); POTASSIUM SERUM 4.4 MMOL/L (3.5-5.1); SODIUM LEVEL 133 MMOL/L (136-145)
== END ==
PROVIDERS: ATTEND Physician Assistant
DX: I10 Essential (primary) hypertension (principal)

== ENCOUNTER → 2024-03-31 | Outpatient (CLI) | payer MEDICARE, MEDICAID | LOC: M SOG 07:53 | PROVIDERS: ATTEND Orthopaedic Surgery | DX: S52.022A Displaced fracture of olecranon process without intraarticular extension of left ulna, initial encounter for closed fracture (principal); M25.522 Pain in left elbow; Z47.89 Encounter for other orthopedic aftercare ==

== ENCOUNTER → 2024-05-27 | Outpatient (REF) | payer MEDICARE, MEDICAID ==
[2024-05-27 08:55] LABS: HEMATOCRIT 38.3 % (42.0-52.0); HEMOGLOBIN 12.5 g/dl (13.5-17.5); MEAN CORPUSCULAR HEMOGLOBIN 30.8 pg (27.0-33.0); MEAN CORPUSCULAR HGB CONC 32.6 g/dl (32.0-36.5); MEAN CORPUSCULAR VOLUME 94.3 fl (80.0-96.0); PLATELET COUNT, AUTOMATED 200 10^3/uL (150-450); RED BLOOD COUNT 4.06 10^6/uL (4.30-6.10); WHITE BLOOD COUNT 7.6 10^3/uL (4.0-10.0)
[2024-05-27 09:27] LABS: CREATININE FOR GFR 0.76 MG/DL (0.70-1.30); GLOMERULAR FILTRATION RATE 88.6 (>35)
== END ==
PROVIDERS: ATTEND Physician Assistant
DX: I10 Essential (primary) hypertension (principal)

== ENCOUNTER → 2024-06-22 | Outpatient (REF) | payer MEDICARE, MEDICAID ==
[~2024-06-22] MED LIST changes: -FLOM0.4C39 PO; +TAMS-18 PO
== END ==
PROVIDERS: ATTEND Physician Assistant
DX: R05.9 Cough, unspecified (principal)

== ENCOUNTER → 2024-06-22 | Outpatient (REF) | payer MEDICARE, MEDICAID | PROVIDERS: ATTEND Physician Assistant | DX: R05.9 Cough, unspecified (principal) ==

== ENCOUNTER → 2024-06-29 | Outpatient (CLI) | payer MEDICARE, MEDICAID ==
[~2024-06-29] MED LIST changes: +LORA-1164 PO; -LORA-622 PO
== END ==
LOC: M SOG 07:09
PROVIDERS: ATTEND Orthopaedic Surgery
DX: S52.032D Displaced fracture of olecranon process with intraarticular extension of left ulna, subsequent encounter for closed fracture with routine healing (principal); Z53.9 Procedure and treatment not carried out, unspecified reason

== ENCOUNTER → 2024-06-30 | Outpatient (REF) | payer MEDICARE, MEDICAID | PROVIDERS: ATTEND Physician Assistant | DX: R05.9 Cough, unspecified (principal); M85.88 Other specified disorders of bone density and structure, other site ==

== ENCOUNTER → 2024-08-26 | Outpatient (REF) | payer MEDICARE, MEDICAID ==
[~2024-08-26] MED LIST changes: -PRAV40TA2 PO; +PRAV40TA85 PO
[2024-08-26 10:32] LABS: PLATELET COUNT, AUTOMATED 184 10^3/uL (150-450)
[2024-08-26 11:07] LABS: CALCIUM LEVEL 8.4 MG/DL (8.3-10.6); CARBON DIOXIDE LEVEL 30.0 MMOL/L (20-31); CHLORIDE LEVEL 96.0 MMOL/L (98-107); CREATININE FOR GFR 0.77 MG/DL (0.70-1.30); GLOMERULAR FILTRATION RATE 88.3 (>35); POTASSIUM SERUM 4.2 MMOL/L (3.5-5.1); SODIUM LEVEL 137.0 MMOL/L (136-145)
== END ==
PROVIDERS: ATTEND Physician Assistant
DX: I11.0 Hypertensive heart disease with heart failure (principal)

== ENCOUNTER → 2024-11-23 | Outpatient (REF) | payer MEDICARE, MEDICAID ==
[2024-11-23 13:07] LABS: PLATELET COUNT, AUTOMATED 205 10^3/uL (150-450)
[2024-11-23 13:37] LABS: CALCIUM LEVEL 8.7 MG/DL (8.3-10.6); CARBON DIOXIDE LEVEL 30.0 MMOL/L (20-31); CHLORIDE LEVEL 95.0 MMOL/L (98-107); CREATININE FOR GFR 0.81 MG/DL (0.70-1.30); GLOMERULAR FILTRATION RATE 86.9 (>35); POTASSIUM SERUM 4.0 MMOL/L (3.5-5.1); SODIUM LEVEL 135.0 MMOL/L (136-145)
== END ==
PROVIDERS: ATTEND Physician Assistant
DX: I10 Essential (primary) hypertension (principal)

== ENCOUNTER → 2025-01-12 | Outpatient (REF) | payer MEDICARE, MEDICAID | PROVIDERS: ATTEND Physician Assistant | DX: R05.9 Cough, unspecified (principal); I51.7 Cardiomegaly; I28.8 Other diseases of pulmonary vessels ==

== ENCOUNTER → 2025-01-12 | Outpatient (REF) | payer MEDICARE, MEDICAID | PROVIDERS: ATTEND Physician Assistant | DX: R05.9 Cough, unspecified (principal); I51.7 Cardiomegaly; I28.8 Other diseases of pulmonary vessels ==

== ENCOUNTER → 2025-01-13 | Outpatient (REF) | payer MEDICARE, MEDICAID ==
[2025-01-13 14:24] LABS: PLATELET COUNT, AUTOMATED 232 10^3/uL (150-450)
[2025-01-13 14:51] LABS: CALCIUM LEVEL 8.7 MG/DL (8.3-10.6); CARBON DIOXIDE LEVEL 33.0 MMOL/L (20-31); CHLORIDE LEVEL 92.0 MMOL/L (98-107); CREATININE FOR GFR 0.73 MG/DL (0.70-1.30); GLOMERULAR FILTRATION RATE 89.7 (>35); POTASSIUM SERUM 4.2 MMOL/L (3.5-5.1); SODIUM LEVEL 135.0 MMOL/L (136-145)
== END ==
PROVIDERS: ATTEND Physician Assistant
DX: U07.1 COVID-19 (principal); Z79.899 Other long term (current) drug therapy

== ENCOUNTER → 2025-01-20 | Outpatient (REF) | payer MEDICARE, MEDICAID | PROVIDERS: ATTEND Physician Assistant | DX: E55.9 Vitamin D deficiency, unspecified (principal) ==